=== PATIENT | male | born 1970 | race Caucasian/White ===

== ENCOUNTER → 2017-12-12 15:26 | Outpatient (CLI) | payer MEDICAID, SELFPAY ==
--- NOTE | 2017-12-12 15:40 | RAD_ITS ---
STUDY: X-RAY - LUMBAR SPINE REASON FOR EXAM: Male, 47 years old. Low back pain TECHNIQUE: 5 view(s) of the lumbar spine were obtained. COMPARISON: None FINDINGS: Normal lumbar lordosis. There is no substantial scoliosis. There is a normal alignment of the vertebrae. Normal vertebral bodies and endplates. Mild disc narrowing and spondylitic endplate changes at L4-5. Minimal disc narrowing at L3-4 and L5-S1. Normal posterior elements. The soft tissue structures are unremarkable. RAD/L/S Spine Min 4 Views IMPRESSION: Straightening of the lumbar spine with otherwise normal alignment. Negative for fracture, osteolytic or blastic bone lesion. Minimal/mild degenerative disc findings at L3-4, L4-5 and L5-S1. Electronically Signed: Mirna York MD at 23:32 EST , Service support ,
== END ==
PROVIDERS: Visit Provider Chiropractor
DX: S33.5XXA Sprain of ligaments of lumbar spine, initial encounter (principal); X58.XXXA Exposure to other specified factors, initial encounter; M47.896 Other spondylosis, lumbar region; M48.07 Spinal stenosis, lumbosacral region
CPT/HCPCS: 72110

== ENCOUNTER 2018-04-23 10:02 | Emergency (ER) | payer MEDICAID, SELFPAY ==
--- NOTE | 2018-04-23 10:14 | CT_ITS ---
STUDY: CTA CHEST REASON FOR EXAM: Male, 47 years old. Chest pain. Patient has a thoracic aortic aneurysm. RADIATION DOSAGE (If Supplied By Facility): CTDIvol = ( 18.90 ) mGy, DLP = ( 623.04 ) mGycm TECHNIQUE: The examination was performed with the intravenous administration of 100 ml of Isovue 300 contrast material. Post-processing of the angiographic images was performed, with multiplanar reformation and 3D reconstruction. Individualized dose optimization techniques were used for this CT. COMPARISON: CT of the chest dated March 02, 2016. FINDINGS: Normal enhancement of the main pulmonary artery and right and left pulmonary arteries. Normal enhancement of the bilateral peripheral pulmonary arteries. There is no demonstrated pulmonary embolism. There is atherosclerotic tortuosity of the aortic arch and descending thoracic aorta. Maximum transverse dimension of ascending thoracic aorta measures 4.5 cm. There is no demonstrated aortic dissection. Normal heart and pericardium. There are visualized mediastinal lymph nodes, which are within normal size limits, and with normal morphology. There are bilateral hilar lymph nodes, which are normal in size and morphology. Normal visualized trachea and bronchi. The lungs are well expanded. There is bilateral basilar dependent atelectasis. Early airspace disease is possible at the lung bases. Normal pleura. Normal chest wall structures. Normal osseous structures. Small lucency is visible within the right lobe liver. This may represent a small cyst. CT/CTA Chest W/WO Contrast IMPRESSION: 1. No CTA demonstrated pulmonary embolism or arterial dissection. 2. Prominent posterior dependent atelectasis, greater than expected. Early airspace disease or pneumonia cannot be excluded. Electronically Signed: Tonia Carmen MD at 11:31 EDT , Service support ,
[2018-04-23 10:15] VITALS: BP 123/77; PULSE 108; RESP 18; TEMP 36.5; O2SAT 98; BMI 28.8
--- NOTE | 2018-04-23 10:15 | EKG12_ITS ---
Test Reason : CP Blood Pressure : / mmHG Vent. Rate : 106 BPM Atrial Rate : 106 BPM P-R Int : 134 ms QRS Dur : 086 ms QT Int : 336 ms P-R-T Axes : 045 057 059 degrees QTc Int : 446 ms Sinus tachycardia Otherwise normal ECG Confirmed by CHARAN WAITE, CHRIS ([id number]), news videotape editor DARIELA SHARMA ([id number]) on 04/28/2018 3:39:31 PM Referred By: KITTY Confirmed By:CHRIS FARRAR MD
[2018-04-23 10:22] VITALS: BP 126/81; PULSE 102; RESP 17; O2SAT 98
[2018-04-23] MEDS: Ondansetron 4 MG/2 ML Vial IV (10:29)
[2018-04-23] MEDS: Aspirin 81 MG TAB.CHEW 324 MG PO (10:29)
[2018-04-23] MEDS: Morphine 4 MG/ML Syringe IV (10:30)
[2018-04-23 10:32] LABS: Absolute Lymphocyte Count 2.15 X10^3/ul (0.83-4.51); Absolute Neutrophil Count 7.7 X10^3/uL (2.0-7.7); Basophil# 0.03 X10^3/uL; Basophil% 0.3 % (0-1); Eosinophil# 0.14 X10^3/uL; Eosinophils% 1.3 % (0-5); Hematocrit 47.4 % (40-54); Hemoglobin 16.2 g/dl (13.0-16.5); Lymphocyte # 2.15 X10^3/ul (4.0); Mean Corp Hgb Conc 34.2 g/gl (32-36); Mean Corpuscular Hgb 30.6 pg (27.0-32.0); Mean Corpuscular Volume 89.6 fL (80-94); Mean Platelet Vol. 10.8 fl (6.2-12.0); Monocyte# 0.68 X10^3/uL; Monocyte% 6.3 % (0-10); Neutrophil % 71.5 % (47-70); Platelet Count 224 K/mm3 (150-450); RBC Distribution Width CV 13.2 % (11.6-14.6); RBC Distribution Width SD 43.7 fl (35.1-43.9); Red Blood Count 5.29 M/mm3 (4.6-6.2); White Blood Count 10.8 K/mm3 (4.4-11.0)
[2018-04-23 10:35] LABS: POSITIVE COUNT NO; POSITIVE DIFFERENTIAL NO; POSITIVE MORPHOLOGY NO
[2018-04-23 10:49] LABS: Anion Gap 10 (5-15); BUN 16 mg/dL (7-18); BUN/Creat Ratio 15.2 RATIO (10-20); Calcium,Total 8.7 mg/dL (8.5-10.1); Chloride 108 mmol/L (98-107); Creatinine, Serum 1.05 mg/dL (0.70-1.30); EST Glomerular Filtration Rate 81 mL/min (>60); Est Glom Filt Rate - Afr Amer 98 mL/min (>60); Estimated Creatinine Clearance 85.05 ml/min; Glucose 127 mg/dL (74-106); Potassium 3.4 mmol/L (3.5-5.1); Sodium Level 145 mmol/L (136-145)
[2018-04-23 12:14] VITALS: BP 113/84; PULSE 89; RESP 20
--- NOTE | 2018-04-23 12:21 | ED.DCSUM_ITS ---
- ER Visit Summary Date of Service: 04/23/18 Chief Complaint: Chest pain History of Present Illness: The patient is a 47 M presenting for evaluation secondary chest pain. Patient reports that about 7:00 this morning he had a relatively sudden onset of chest pain. He reports that it is a intermittent heaviness that is in the left side of his chest. It radiates a little bit to his back and was associated with some lightheadedness. No exacerbating relieving factors were associated with this. Patient denies any diaphoresis shortness of breath or palpitations. Patient has a underlying history of tobacco use and a known thoracic aneurysm at 4.5 cm. He has never had a stress test. He does not take any other medications. Review of systems otherwise negative. Physical Examination: Vital signs are within normal limits, patient is afebrile. General: Patient is well-nourished well-developed and in no acute distress. Head: Normocephalic, atraumatic Eyes: Pupils equal round and reactive bilaterally, extra occular motion intact bialterally ENT: Moist mucous membranes Neck: Supple, no lymphadenopathy, no JVD, no meningismus CVS: Heart regular rate and rhythm, no murmurs, rubs or gallops, radial pulses 2 + bilaterally Resp: Respirations nondistressed, lung sounds clear bilaterally Abdomen: Soft, nontender, nondistended, no palpable masses, normal bowel sounds Back: Nontender Extremities: Nontender, atraumatic, active full range of motion, no peripheral edema Skin: warm, contact dermatitis of the arms bilaterally, no petechia Neuro: Alert and oriented x 4, CN 2-12 intact, no lateralizing neurological defecits Psyc: Normal affect Test Results: CBC chemistry troponin are unremarkable. CT angiogram of the chest shows no evidence of dissection or PE and shows stable thoracic aneurysm. EKG demonstrates sinus rhythm of [address] segments normal T waves Emergency Department Course and Treatment: Patient presented for evaluation secondary chest pain. He was evaluated with the above workup that was found to be negative. Patient's SUKUMAR score 0 his heart score is 1. I do not believe that he requires further workup or admission at this time. Patient does have contact dermatitis. This will be treated with a prednisone taper. Patient will be given a primary care physician from the referral list. Disposition: Discharge Impression: 1. Chest pain 2. Contact dermatitis This note was generated with Dragon dictation software. It may contain incorrect words, spelling, and punctuation that were not noted in review of the chart prior to signing ED Disposition - Plan for ED Patient: Disposition: Home or Assisted Living Chief Complaint: Chest Pain Diagnosis: Chest pain, Contact dermatitis Instructions: ED Chest Pain NonCardiac, ED Dermatitis Non Specific Rash Prescriptions: Prednisone 10 mg PO UD #33 tab Referrals: Narciso Boo MD [STAFF PHYSICIAN] -
[2018-04-23 12:26] VITALS: BP 121/93; PULSE 102; RESP 16; O2SAT 98
== END 2018-04-23 12:27 | disposition home or self-care (01) ==
PROVIDERS: Emergency Provider Emergency Medicine
DX: R07.9 Chest pain, unspecified (principal); L25.9 Unspecified contact dermatitis, unspecified cause; Z72.0 Tobacco use
CPT/HCPCS: 71275; 80048; 84484; 85025; 93005; 96374; 96375; 99285; J7050; Q9967; A4216; J2405

== ENCOUNTER 2018-12-04 20:32 | Emergency (ER) | payer MEDICAID, SELFPAY ==
[2018-12-04 20:32] VITALS: PULSE 98; RESP 18; TEMP 37.1; BMI 26.9
--- NOTE | 2018-12-04 20:47 | EKG12_ITS ---
Test Reason : CP Blood Pressure : / mmHG Vent. Rate : 092 BPM Atrial Rate : 092 BPM P-R Int : 128 ms QRS Dur : 084 ms QT Int : 348 ms P-R-T Axes : 034 033 035 degrees QTc Int : 430 ms Normal sinus rhythm Possible Left atrial enlargement Borderline ECG Confirmed by CHARAN WAITE, CHRIS ([id number]), desk editor DARIELA SHARMA ([id number]) on 12/09/2018 10:55:32 AM Referred By: LUIS Confirmed By:CHRIS FARRAR MD
--- NOTE | 2018-12-04 20:54 | ED.DCSUM_ITS ---
- ER Visit Summary Date of Service: 12/04/18 Chief Complaint: Chest pain History of Present Illness: The patient is a 48 M who presents with chest pain that began approximately 5 hours prior to arrival. Patient states he woke up and was late for work when he noticed the chest pain. Patient describes the p ain as sharp. Patient states nothing makes it better or worse. Patient states the pain is over the left side of his chest and radiates to his left axilla and left scapula. Patient admits to some palpitations and lightheadedness. Patient denies any nausea or vomiting. Patient denies any diaphoresis. Patient denies any shortness of breath. Patient has a family history of a father who had hue nary artery disease in his 40s. Patient is a smoker. Patient denies any PE risk factors. Physical Examination: Vital signs are stable. Patient is afebrile. Patient is in no acute distress. Oral mucosa is pink and moist. Neck is supple. Trachea is midline. There is no JVD noted. Heart was regular rate and rhythm. Lungs are clear and equal bilateral. Abdomen is soft. Bowel sounds are normal. There is no tenderness. There is no guarding noted. Skin is warm dry. Cranial nerves II through XII are intact. There are no focal motor or sensory deficits noted. The remaining physical exam is within normal limits. Test Results: EKG showed normal sinus rhythm with a rate of 92. There are no acute ST or T wave changes. Portable chest x-ray does not show any acute cardiopulmonary process. CBC and basic metabolic profile were normal. Troponin was normal. Emergency Department Course and Treatment: Patient was given aspirin and sublingual nitroglycerin here. Patient felt better on reevaluation. Patient has a HEART score of 3 and a SUKUMAR score of 1. Patient was advised that this is low risk for acute cardiac event. Patient was instructed to follow-up with his primary care physician in 5-7 days. Patient was instructed to return if worse in any way. Patient understood and was agreeable with the plan. All questions were answered. Disposition: Discharge home Impression: Chest pain This note was generated with [employer] dictation software. It may contain incorrect words, spelling, and punctuation that were not noted in review of the chart prior to signing Capacity - Capacity Assessment Tool Can the patient make a choice & communicate that choice?: Yes Can the patient understand benefits, risks and alternatives?: Yes Can the patient make a logical, rational choice?: Yes Is the choice the patient makes consistent w/ their values?: Yes Is there an impending, emergent risk to the patient?: No ED Disposition - Plan for ED Patient: Disposition: Home or Assisted Living Diagnosis: Chest pain of uncertain etiology Instructions: ED Chest Pain Atypical Unkn Cause Referrals: Care Physician,No Primary [Primary Care Provider] - Chetan Lainez III, MD [STAFF PHYSICIAN] -
--- NOTE | 2018-12-04 20:55 | RAD_ITS ---
STUDY: X-RAY CHEST REASON FOR EXAM: Male, 48 years old. Chest pain TECHNIQUE: 1 view COMPARISON: Prior chest radiograph of July 10, 2016. FINDINGS: 1 small transverse scar above the left costophrenic angle present on prior exam. Negative for new consolidation, focal atelectasis or pleural effusion. There is no demonstrated pleural abnormality. Normal size heart. Normal mediastinum and rosalba. Normal visualized pulmonary arteries. Normal visualized aortic arch and descending thoracic aorta. Normal visualized thoracic spine. Normal visualized ribs, clavicles, and shoulders. There is no demonstrated abnormality of the visualized soft tissue structures of the upper abdomen. RAD/Chest 1 View (Portable) IMPRESSION: No acute cardiopulmonary findings or changes. Electronically Signed: Mirna York MD at 21:13 EST , Service support ,
[2018-12-04] MEDS: Aspirin 81 MG TAB.CHEW 324 MG PO (20:56)
[2018-12-04 20:57] VITALS: BP 120/85; PULSE 88
[2018-12-04 21:02] VITALS: BP 119/90; PULSE 95
[2018-12-04 21:07] VITALS: BP 112/77; PULSE 98
[2018-12-04 21:12] LABS: Absolute Lymphocyte Count 1.94 X10^3/ul (0.83-4.51); Absolute Neutrophil Count 5.9 X10^3/uL (2.0-7.7); Basophil# 0.02 X10^3/uL; Basophil% 0.2 % (0-1); Eosinophils% 2.3 % (0-5); Hematocrit 48.3 % (40-54); Hemoglobin 15.5 g/dl (13.0-16.5); Lymphocyte # 1.94 X10^3/ul (4.0); Lymphocyte % 22.6 % (19-41); Mean Corp Hgb Conc 32.1 g/gl (32-36); Mean Corpuscular Hgb 29.6 pg (27.0-32.0); Mean Corpuscular Volume 92.2 fL (80-94); Mean Platelet Vol. 10.4 fl (6.2-12.0); Monocyte# 0.45 X10^3/uL; Monocyte% 5.2 % (0-10); Neutrophil # 5.92 X10^3/uL (2.7-7.7); Neutrophil % 69.1 % (47-70); Platelet Count 237 K/mm3 (150-450); RBC Distribution Width CV 13.7 % (11.6-14.6); RBC Distribution Width SD 46.3 fl (35.1-43.9); Red Blood Count 5.24 M/mm3 (4.6-6.2); White Blood Count 8.6 K/mm3 (4.4-11.0)
[2018-12-04 21:16] LABS: Anion Gap 7 (5-15); BUN 17 mg/dL (7-18); BUN/Creat Ratio 17.4 RATIO (10-20); Chloride 110 mmol/L (98-107); Creatinine, Serum 0.98 mg/dL (0.70-1.30); EST Glomerular Filtration Rate 88 mL/min (>60); Est Glom Filt Rate - Afr Amer 106 mL/min (>60); Glucose 117 mg/dL (74-106); POSITIVE COUNT NO; POSITIVE DIFFERENTIAL NO; POSITIVE MORPHOLOGY NO; Potassium 4.2 mmol/L (3.5-5.1); Sodium Level 143 mmol/L (136-145)
[2018-12-04 21:47] VITALS: BP 108/69; PULSE 77; RESP 15; O2SAT 98
[2018-12-04 22:35] VITALS: BP 97/72; PULSE 90; RESP 16; O2SAT 96
== END 2018-12-04 22:50 | disposition home or self-care (01) ==
PROVIDERS: Emergency Provider Emergency Medicine
DX: R07.9 Chest pain, unspecified (principal); F17.200 Nicotine dependence, unspecified, uncomplicated; Z82.49 Family history of ischemic heart disease and other diseases of the circulatory system
CPT/HCPCS: 71045; 80048; 84484; 85025; 93005; 99285; A4216

== ENCOUNTER 2019-04-13 01:26 | Emergency (ER) | payer MEDICAID, SELFPAY ==
[2019-04-13 01:27] VITALS: BP 130/108; PULSE 87; RESP 18; TEMP 36.8; O2SAT 97; BMI 28.8
[2019-04-13 01:31] VITALS: RESP 18
--- NOTE | 2019-04-13 02:12 | RAD_ITS ---
HISTORY: Chest Pain EXAMINATION/TECHNIQUE: XR Chest 1 View: Portable COMPARISON: Chest x-ray 12/04/2018 and CTA chest 04/23/2018 FINDINGS: EKG leads in place. No significant change. Shallow inspiration. Lingular segment minor linear scarring. No acute infiltrate. No vascular congestion or pleural effusion. No pneumothorax. RAD/Chest 1 View (Portable) IMPRESSION: 1. No acute cardiopulmonary disease. No significant interval change. 2. Left basilar minor scarring. at 0401 Reported and signed by: Derrick Turcios MD Electronically Signed: Derrick Turcios, at 4:00 EDT Tel , Service support ,
--- NOTE | 2019-04-13 02:12 | EKG12_ITS ---
Test Reason : CP Blood Pressure : / mmHG Vent. Rate : 088 BPM Atrial Rate : 088 BPM P-R Int : 132 ms QRS Dur : 078 ms QT Int : 354 ms P-R-T Axes : 027 036 037 degrees QTc Int : 428 ms Normal sinus rhythm Normal ECG Confirmed by CHARAN WAITE, CHRIS ([id number]), online editor MAYURI JEFFERSON ([id number]) on 04/14/2019 7:29:12 AM Referred By: LUIS Confirmed By:CHRIS FARRAR MD
[2019-04-13 02:18] VITALS: O2SAT 94
[2019-04-13] MEDS: Aspirin 81 MG TAB.CHEW 324 MG PO (02:20)
[2019-04-13] MEDS: Nitroglycerin SL (ED/IMG/CATH) 0.4 MG TABLET SUBLINGUAL (02:22)
[2019-04-13 02:29] LABS: Absolute Lymphocyte Count 2.18 X10^3/ul (0.83-4.51); Absolute Neutrophil Count 4.6 X10^3/uL (2.0-7.7); Basophil# 0.03 X10^3/uL; Basophil% 0.4 % (0-1); Eosinophil# 0.17 X10^3/uL; Eosinophils% 2.2 % (0-5); Hematocrit 47.4 % (40-54); Hemoglobin 15.7 g/dl (13.0-16.5); Lymphocyte # 2.18 X10^3/ul (4.0); Lymphocyte % 28.5 % (19-41); Mean Corp Hgb Conc 33.1 g/gl (32-36); Mean Corpuscular Hgb 29.7 pg (27.0-32.0); Mean Corpuscular Volume 89.8 fL (80-94); Mean Platelet Vol. 11.3 fl (6.2-12.0); Monocyte% 7.9 % (0-10); Neutrophil # 4.62 X10^3/uL (2.7-7.7); Neutrophil % 60.5 % (47-70); Platelet Count 202 K/mm3 (150-450); RBC Distribution Width CV 13.2 % (11.6-14.6); RBC Distribution Width SD 43.2 fl (35.1-43.9); Red Blood Count 5.28 M/mm3 (4.6-6.2); White Blood Count 7.6 K/mm3 (4.4-11.0)
[2019-04-13 02:30] LABS: POSITIVE COUNT NO; POSITIVE DIFFERENTIAL NO; POSITIVE MORPHOLOGY NO
[2019-04-13 02:41] LABS: Anion Gap 6 (5-15); BUN 23 mg/dL (7-18); BUN/Creat Ratio 21.9 RATIO (10-20); Chloride 108 mmol/L (98-107); Creatinine, Serum 1.05 mg/dL (0.70-1.30); EST Glomerular Filtration Rate 80 mL/min (>60); Est Glom Filt Rate - Afr Amer 97 mL/min (>60); Estimated Creatinine Clearance 103.95 ml/min; Glucose 121 mg/dL (74-106); Potassium 3.8 mmol/L (3.5-5.1); Sodium Level 142 mmol/L (136-145)
[2019-04-13 03:02] VITALS: BP 107/70; PULSE 97; RESP 16; O2SAT 96
[2019-04-13 03:53] VITALS: BP 118/84; PULSE 95; RESP 16; O2SAT 95
--- NOTE | 2019-04-13 04:14 | ED.VISSUMM ---
- ER Visit Summary Date of Service: 04/13/19 Chief Complaint: Chest pain History of Present Illness: The patient is a 48 M who presents with chest pain that began today. Patient describes the pain as sharp. Patient states the pain is over the left upper chest and radiates to the left axilla. Patient states nothing makes the pain better or worse. Patient admits to some mild shortness of breath and palpitations with pain. Patient also admits to recent cough. Patient denies any nausea or vomiting. Patient denies any diaphoresis. Patient denies any heartburn or reflux. Patient denies any lightheadedness or dizziness. Physical Examination: Vital signs are stable. Patient is afebrile. Patient is in no acute distress. Oral mucosa is pink and moist. Neck is supple. Trachea is midline. There is no JVD noted. Heart was regular rate and rhythm. Lungs are clear and equal bilateral. Abdomen is soft. Bowel sounds are normal. There is no tenderness. There is no guarding noted. Skin is warm dry. Cranial nerves II through XII are intact. There are no focal motor or sensory deficits noted. The remaining physical exam is within normal limits. Test Results: EKG showed normal sinus rhythm with a rate of 88. There are no acute ST or T wave changes. There are no prior EKGs available for comparison. CBC, basic metabolic profile, troponin were obtained were all normal. PA and lateral chest x-ray was obtained. Radiologist interpretation is pending. Emergency Department Course and Treatment: Patient did not want to wait for his x-ray results. Patient left prior to receiving his results. Patient signed out AGAINST MEDICAL ADVICE. Patient was advised that his chest pain may be cardiac or pulmonary etiology. Patient does not want to wait for his x-ray results. Patient understood and will still sign out AGAINST MEDICAL ADVICE. Disposition: Discharge AGAINST MEDICAL ADVICE Impression: Chest pain of uncertain etiology This note was generated with [employer] dictation software. It may contain incorrect words, spelling, and punctuation that were not noted in review of the chart prior to signing ED Disposition - Plan for ED Patient: Disposition: Against Medical Advice Diagnosis: Chest pain of uncertain etiology Referrals: Care Physician,No Primary [Primary Care Provider] -
== END 2019-04-13 03:54 | disposition left against medical advice (07) ==
PROVIDERS: Emergency Provider Emergency Medicine
DX: R07.9 Chest pain, unspecified (principal); Z53.21 Procedure and treatment not carried out due to patient leaving prior to being seen by health care provider; Z72.0 Tobacco use
CPT/HCPCS: 71045; 80048; 84484; 85025; 93005; 99285; A4216

== ENCOUNTER 2019-05-27 09:11 | Emergency (ER) | payer MEDICAID, SELFPAY ==
[2019-05-27 09:11] VITALS: BP 131/94; PULSE 109; RESP 18; TEMP 36.6; O2SAT 96; BMI 27.5
--- NOTE | 2019-05-27 09:23 | ED.DCSUM_ITS ---
History of Present Illness Chief Complaint: Dental Informant: Patient Onset: Days Context: Gradual Onset Current Severity: Moderate Maximum Severity: Moderate Narrative: Patient presents with right upper dental pain for the past 4 days. He was seen at the [facility] and given a prescription for clindamycin, 300 mg 3 times daily x7 days. Patient states he continues to have worsening pain. He feels that his left maxilla is swelling more. He does not have a dentist and has not called anyone to be seen. He has not had fever. He has had no difficulty with swallowing. Past Medical History - Allergies and Home Meds Allergies/Adverse Reactions: Allergies Penicillins Allergy (Verified 04/13/19 01:34) Shortness of breath Primary Care Physician: Care Physician,No Primary [Primary Care Provider] - Prior records reviewed: Yes Past Medical History: - - Reviewed Smoking Status: Current every day smoker Review of Systems General: Denies: Chills, Fever ENT: Reports: - - Dental pain and right facial pain. Denies: Bilateral ear pain Cardiovascular: Denies: Chest pain Respiratory: Denies: Dyspnea Gastrointestinal: Denies: Abdominal pain, Nausea, Vomiting, Diarrhea Genitourinary: Denies: Dysuria Neurological: Denies: Headache Hematologic: Denies: Easy bruising Allergy: Denies: Uticaria Physical Exam Vital Signs/Narrative: Vital Signs Temp Pulse Resp BP Pulse Ox 05/27/19 09:11 98 F 109 H 18 131/94 H 96 Inital Vital Signs reviewed: Yes General: Well nourished, Well developed Eyes: Perrl ENT: Moist mucous membranes, TM's clear, - - Right maxillary first premolar has a cavity near the gumline. There is minimal surrounding gum edema. He does have right maxillary edema but no erythema. There is no sub-mandibular edema. He is lying with head of bed elevated approximately 30 degrees and is tolerating secretions well and has a strong voice. Neck: Supple, Nontender Cardiovascular: Regular rate, Regular rhythm, No murmurs Respiratory: No distress, CTA bilaterally Abdomen: Soft, Nontender Skin: Normal color Neurological: Alert, Oriented x3 Psychological: - - Anxious Diagnostic/Tx/Re-eval - Medical Decision Making Patient was on clindamycin but unfortunately was not quite on the correct dose. He states that in the past he has done very well with erythromycin. He will be written for this in place of the clindamycin. He asked us to get rid of his clindamycin pills and they were destroyed. He will also be given a short course of [facility] for pain. Most importantly he is given a dental referral list and advised he must follow-up with a dentist. ED Disposition - Plan for ED Patient: Disposition: Home or Assisted Living Diagnosis: Odontalgia Instructions: Dental Abscess Prescriptions: Erythromycin Base [Erythromycin] 500 mg PO Q8H #10 days Hydrocodone Bitart/Apap 5-325 [[facility] 5MG-325MG] 1 tablet PO Q6H PRN PRN 3 Days #10 tablet PRN Reason: Pain Additional Instructions: Dental list provided.
--- NOTE | 2019-05-27 09:24 | ED.RN ---
PT WANTS THE CLINDAMYCIN DISPOSED OFF AND A NEW ANTIBIOTIC. PT GAVE IT TO DR JACOBSON AND [employer] PLACED IN THE RX DESTROYER SOLUTION.
== END 2019-05-27 09:50 | disposition home or self-care (01) ==
LOC: ED 09:46
PROVIDERS: Emergency Provider Emergency Medicine; Family Provider Family Medicine; PCP Family Medicine
DX: K08.89 Other specified disorders of teeth and supporting structures (principal); K02.9 Dental caries, unspecified; F17.200 Nicotine dependence, unspecified, uncomplicated
CPT/HCPCS: 99282

== ENCOUNTER 2019-11-25 10:13 | Emergency (ER) | payer MEDICAID, SELFPAY ==
[2019-11-25 10:15] VITALS: BP 131/89; PULSE 107; RESP 18; TEMP 36.8; O2SAT 100; BMI 28.0
--- NOTE | 2019-11-25 10:58 | ED.VISSUMM ---
- ER Visit Summary Date of Service: 11/25/19 Chief Complaint: Rash History of Present Illness: The patient is a 49 M past medical history of thoracic aneurysm. And a rash for over a year. He is seen a plant operator control room operator for this who prescribed him a cream and oral steroids which worked well. Currently he is out of his steroids. He also wrote a prescription for injections but his insurance denied that he is going through the appeals process. Physical Examination: Well-appearing middle-aged male. Emotionally stressed. Vital signs are stable afebrile. H EENT exam unremarkable. Neck nontender. Lungs clear to auscultation bilaterally. Heart regular rhythm no murmur rate about 100. Abdomen soft nontender. Extremities moves all 4. Neurovascular intact. Neurologically is awake alert no focal motor deficits. Skin is a red raised rash that blanches. It appears to be allergic reaction. No sloughing of skin. No pustules or vesicles. Test Results: None Emergency Department Course and Treatment: Patient be given dose of prednisone here and placed on a prescription. Follow-up with his plant operator control room operator. Treatment Plan: As in 40 mg a day for 10 days. Follow-up with his plant operator control room operator. Stop smoking and using cocaine. Disposition: dc Impression: Acute rash (allergic reaction) This note was generated with [employer] dictation software. It may contain incorrect words, spelling, and punctuation that were not noted in review of the chart prior to signing ED Disposition - Plan for ED Patient: Referrals: Rey Davies MD [Primary Care Provider] -
--- NOTE | 2019-11-25 11:01 | ED.DEP ---
ED Disposition - Plan for ED Patient: Disposition: Home or Assisted Living Instructions: ALLERGIC REACTION, Other (General) Prescriptions: Prednisone [Deltasone] 40 mg PO DAILY 10 Days tab Prescription Printed Referrals: Rey Davies MD [Primary Care Provider] - As Needed Ivone Lazaro [NON-STAFF] - As soon as possible
[2019-11-25] MEDS: predniSONE 20 MG Tablet 60 MG PO (11:24)
[2019-11-25 11:25] VITALS: PULSE 93; RESP 17; O2SAT 100
== END 2019-11-25 11:26 | disposition home or self-care (01) ==
LOC: ED 11:02
PROVIDERS: Emergency Provider Emergency Medicine; PCP Family Medicine
DX: R21 Rash and other nonspecific skin eruption (principal); T78.40XA Allergy, unspecified, initial encounter; X58.XXXA Exposure to other specified factors, initial encounter; Z72.0 Tobacco use
CPT/HCPCS: 99283

== ENCOUNTER 2019-11-29 14:33 | Emergency (ER) | payer MEDICAID, SELFPAY ==
[2019-11-29 14:33] VITALS: BP 117/75; PULSE 96; RESP 18; TEMP 36.6; O2SAT 98; BMI 28.0
--- NOTE | 2019-11-29 14:47 | ED.DCSUM_ITS ---
History of Present Illness Chief Complaint: Rash Detail of Chief Complaint: Haris Limon may have shingles Informant: Patient Onset: Days - Onset of different rash 3 days ago rash started left lower back radiating over the lateral to lateral anterior left thigh. Context: Sudden Onset Timing: Continuous Quality: Erythematous rash with crusting and reported blisters Location: Previously documented Current Severity: Mild Maximum Severity: Mild Worsened by: Itching Relieved by: Nothing Associated Symptoms: Reports pain as he is rubbing the rash. Narrative: Patient is a 49-year-old male who sees a market research analyst for his rash. He denies fever or chills. He states the rash she is seeing a market research analyst for improved after he was prescribed prednisone. He is now concerned about the new rash that is on his buttocks, low back and left thigh. He was unaware that the rash crosses midline. He also complains of pain shooting into his buttocks. He denies change in size, consistency or frequency of bowel movements. He denies symptoms. He is concerned he has shingles. Prior similar symptoms: No Recent Illness/Hospitalization: Yes - Past Medical History (1) Psoriasis Status: Acute Past Medical History - Allergies and Home Meds Allergies/Adverse Reactions: Allergies Penicillins Allergy (Verified 11/29/19 14:35) Shortness of breath Primary Care Physician: Rey Davies MD [Primary Care Provider] - Prior records reviewed: Yes Surgical History: noncontributory Lives: Alone Smoking Status: Current every day smoker Alcohol: Rare Drugs: None Review of Systems General: Denies: Chills, Fever, Malaise, Subjective, Sweats, Weight loss, - Eyes: Reports: - - Complaint of photophobia. Denies: Visual changes - bilaterally, Blurred Vision - bilaterally ENT: Denies: Rhinorrhea, Sore throat Gastrointestinal: Denies: Abdominal pain, Nausea, Vomiting, Diarrhea, Melena, Hematochezia Genitourinary: Denies: Dysuria, Hematuria, Frequency Musculoskeletal: Denies: Back pain, Swelling, Extremity Pain Skin: Reports: Rash, Wounds. Denies: Abscess, Abrasions Neurological: Denies: Weakness, Parasthesia, Numbness Allergy: Denies: Uticaria, Swelling of the mouth, Swelling of the tongue Physical Exam Vital Signs/Narrative: Vital Signs Temp Pulse Resp BP Pulse Ox 11/29/19 14:33 97.8 F 96 18 117/75 98 Inital Vital Signs reviewed: Yes General: Well nourished, Well developed, No Acute Distress Head: Normocephalic, Atraumatic Eyes: Perrl, EOMI Cardiovascular: Regular rate Respiratory: No distress Rectal: Deferred Back: Nontender. Negative for: Normal Inspection, CVA tenderness, Spinal tenderness Extremities: No edema. Negative for: Nontender Skin: Normal color, Rash - Patient has evidence of eczema as well as psoriasis. He also has a rash on the anterior/lateral left thigh as well as buttocks and left lower back which crosses midline. The rash is erythematous with a scaly hypertrophic appearing center. No blisters are noted. He has no hyperesthesia. As previously documented he reports pain as he is rubbing the rash. Neurological: Alert, Oriented x3, Cranial nerves II-XII grossly intact, Normal Strength, Normal Sensation Psychological: - - Exaggerated Diagnostic/Tx/Re-eval - Medical Decision Making She presents with rash that he reports is pruritic and painful. Patient does have a rash. Concerned this represents psoriasis. Since he is under the care of the market research analyst and there is no acute life-threatening concern will discharge to home I was informed by the charge nurse the patient left because he was not going to wait for a cream or ointment for his rash. ED Disposition - Plan for ED Patient: Disposition: Home or Assisted Living Diagnosis: Scaly erythematous rash Referrals: Rey Davies MD [Primary Care Provider] -
--- NOTE | 2019-11-29 14:52 | ED.RN ---
PT CAME OUT TO NURSES STATION AND STATED I'M GOING TO LEAVE, I FELL FINE PT LEFT WITHOUT BEING SEEN.
== END 2019-11-29 14:55 | disposition home or self-care (01) ==
PROVIDERS: Emergency Provider Emergency Medicine; PCP Family Medicine
DX: R21 Rash and other nonspecific skin eruption (principal); F17.200 Nicotine dependence, unspecified, uncomplicated

== ENCOUNTER 2022-01-17 18:03 | Emergency (ER) | payer MEDICAID, SELFPAY ==
[2022-01-17 18:04] VITALS: BP 141/120; PULSE 119; RESP 18; TEMP 36.1; O2SAT 95; BMI 28.5
--- NOTE | 2022-01-17 18:16 | ED.VIS.DENTA ---
HPI History of Present Illness Chief Complaint: Dental Detail of Chief Complaint: Dental pain x3 days Onset/Context/Timing Current Severity: Severe Narrative Narrative: Patient presents to the ER with complaint of left lower dental pain that started 3 days ago. Patient states that his dentist called him in a prescription for Keflex yesterday but feels like he is getting worse. He has pain that kind of radiates under his jaw and to the back of his throat. He complains of a headache. He denies fever but has had some chills. Patient otherwise has no medical history. Prior similar symptoms: No PFSH PFSH Medical History (Updated 01/17/22 @ 18:[address] Yannick Roca, DO) Bilateral groin pain Dental abscess Excessive cerumen in ear canal Psoriasis Home Medications clindamycin HCl [Cleocin HCl] 300 mg PO Q6H #40 capsule 01/17/22 [Rx Last Taken Unknown] hydrocodone-acetaminophen 1 tab PO Q4H PRN PRN 2 Days #10 tablet 01/17/22 [Rx Last Taken Unknown] Allergy/AdvReac Type Severity Reaction Status Date / Time Penicillins Allergy Shortness Verified 01/17/22 18:03 of breath Family History Mother Colon cancer Surgical History history left inguinal herniorrhaphy Social History (Updated 03/29/20 @ 09:[address] Dariusz Godwin MD) Smoking Status: Current every day smoker tobacco type: cigarettes alcohol intake: never substance use type: does not use ROS ROS ED Constitutional Constitutional ED: Reports systems reviewed and no addt'l complaints, except as documented; Denies body ache(s), change in weight or chills Eyes Eyes: Denies acute decrease in peripheral vision, change in vision, double vision or loss of vision ENT ENT ED: Reports none, sore throat and other Details: Dental pain ; Denies ear pain, lip swelling, loss taste/smell, neck pain or otalgia Cardiovascular Cardiovascular: Reports none; Denies abdominal pain, chest pain with activity, leg edema, lightheadedness, palpitations, rapid heart rate or syncope Respiratory/Chest Respiratory/Chest: Reports none; Denies change in mental status, dry cough, dyspnea, hemoptysis, shortness of breath at rest or shortness of breath with exertion Gastrointestinal Gastrointestinal: Reports none; Denies abdominal pain, change in stool character, diarrhea, hematemesis, hematochezia, melena, rectal bleeding or vomiting Genitourinary Genitourinary ED: Reports none; Denies abdominal discomfort, anuria, dysuria, genital pain or polyuria Musculoskeletal Musculoskeletal: Reports none; Denies arthralgias, back pain, difficulty walking, extremity pain, muscle weakness or myalgias Integumentary Reports none; Denies abscess or rash Neurologic Neurologic: Reports none; Denies abnormal gait, confusion, focal weakness, frequent falls, headache(s), loss of vision, numbness, paresthesias, radicular pain, vertigo or weakness Psychiatric Psychiatric: Reports systems reviewed and no addt'l complaints, except as documented and none; Denies behavioral changes, confusion, difficulty concentrating, hallucinations, suicidal ideation, tactile hallucinations or visual hallucinations Endocrine Endocrinology: Denies none, cold intolerance, excessive sweating, fatigue or heat intolerance Hematologic/Lymphatic Hematologic/Lymphatic: Reports none; Denies anemia, easy bleeding or easy bruising Allergic/Immunologic Allergic/Immunologic ED: Denies as per HPI, none, lip swelling, mouth swelling, throat swelling, tongue swelling or hives EXAM Physical Exam Const Vital Signs: 01/17/22 18:04 Temperature 97 F L Temperature Source Temporal Pulse Rate 119 H Respiratory Rate 18 Blood Pressure 141/120 H Blood Pressure Mean 127 Pulse Ox 95 Oxygen Delivery Method Room Air Positive well nourished and well developed General Appearance ED: well developed and NAD HEENT Reports TM's clear and moist mucous membranes HEENT Narrative: Dentition-patient has tenderness to palpation over left lower molar #19. No gingival erythema or abscess noted. No facial erythema or cellulitis. No significant adenopathy. Pharynx is nonerythematous. Uvula is midline. No trismus. normocephalic and atraumatic; Negative for trauma or tenderness Tympanic Membrane ED: Yes TM's clear Eyes PERRL and EOMs intact bilaterally General Eye ED: Negative for pale conjunctiva or scleral icterus Neck no lymphadenopathy, supple and no JVD General: Negative for tenderness Chest Wall inspection of chest normal and palpation of chest normal Chest: Negative for tenderness Resp normal respiratory effort and clear to auscultation bilaterally Effort and Inspection: Negative for respiratory distress or pain with movement Auscultation: Negative for rhonchi, wheezes or diminished lung sounds Cardio regular rate, regular rhythm, S1 normal heart sound, S2 normal heart sound and no murmurs Peripheral Pulses: pulses 2+ throughout GI normal to inspection, nondistended, normoactive bowel sounds, soft to palpation, non-tender, non-distended and no masses Back/Spine no CVA tenderness and no thoracic nor lumbar tenderness Extremity normal to inspection General Extremety ED: Negative for edema General Extremity: Negative for edema Neuro oriented x3, CN's II-XII intact bilaterally, no sensory deficits noted and gait normal Sensorium / Orientation: awake, alert, oriented to person, oriented to place and oriented to time Motor Exam: strength 5/5 throughout and strength abnormal Psych mental status grossly normal Skin no rashes or lesions noted and no wounds MDM MDM MDM Narrative Medical decision making narrative: Patient will be switched to clindamycin. He is given a few [place] for pain. He is advised to follow-up with his dentist within next 3 to 5 days. Discharge Plan Triage Chief Complaint: Dental ED Provider: Yannick Roca Dx/Rx/DC Orders Clinical Impression: Pain, dental Instructions: ED Dental Pain Prescriptions: New clindamycin HCl [Cleocin HCl] 300 MG capsule 300 mg PO Q6H Qty: 40 RF: 0 hydrocodone-acetaminophen [hydrocodone-acetaminophen] 1 TABLET tablet 1 tab PO Q4H PRN PRN (Reason: Pain) 2 Days Qty: 10 RF: 0 Primary Care Provider: Care Physician,No Primary Referrals: Care Physician,No Primary [Primary Care Provider] - Activity Restrictions/Additional Instructions: See your dentist at earliest possible time for repeat evaluation Disposition Disposition: Home, Self Care
[2022-01-17] MEDS: Clindamycin HCl 150 MG Capsule 300 MG PO (18:25)
== END 2022-01-17 18:28 | disposition home or self-care (01) ==
LOC: ED 18:25
PROVIDERS: Emergency Provider Emergency Medicine; Visit Provider Emergency Medicine
DX: K08.89 Other specified disorders of teeth and supporting structures (principal); F17.210 Nicotine dependence, cigarettes, uncomplicated
CPT/HCPCS: 99283

== ENCOUNTER 2025-06-26 08:42 | Emergency (ER) | payer SELFPAY ==
[2025-06-26] VITALS (7 sets, daily range): BP systolic 104–120; BP diastolic 78–84; PULSE 67–102; RESP 15–18; TEMP 36.6; O2SAT 98; BMI 28.2
--- NOTE | 2025-06-26 08:47 | RAD_ITS ---
EXAM: Three views of the tibia. CLINICAL HISTORY: Fall. COMPARISON: None. TECHNIQUE: 3 radiographic views of the right calf. FINDINGS: Intramedullary aman in the right tibia with healed mid tibial fracture. Healed fibular fracture. Knee and ankle articulations negative. RAD/Tibia & Fibula 2 Views IMPRESSION: Old healed fractures of the right calf. Reading Location: [id number]
[2025-06-26] MEDS: fentaNYL 100 MCG/2 ML Ampul 50 MCG IV (08:49)
--- NOTE | 2025-06-26 08:49 | EDS_ITS ---
HPI History of Present Illness Chief Complaint: Laceration Narrative Narrative: Patient is a 54-year-old male presenting to the emergency department for a right lower extremity injury. Patient states that about half an hour ago he was jumping up into the back of a trailer behind his truck when he hit his right edwards on a piece of metal. He does not know when his last tetanus vaccine was. Denies any other injuries. Denies numbness or weakness of the leg. PFSH PFSH Medical History Bilateral groin pain Psoriasis Excessive cerumen in ear canal Dental abscess Home Medications ?Medication ?Instructions ?Recorded ?Last Taken ?Type clindamycin HCl 150 mg capsule 450 mg (3 x 150 mg) PO Q8H 7 days 06/26/25 Unknown Rx (Cleocin HCl) #63 caps Allergy/AdvReac Type Severity Reaction Status Date / Time Penicillins Allergy Shortness Verified 01/17/22 18:03 of breath Family History Mother Colon cancer Surgical History history left inguinal herniorrhaphy Social History Smoking Status: Current every day smoker tobacco type: cigarettes alcohol intake: never substance use type: does not use ROS ROS ED ROS Narrative see HPI EXAM Physical Exam Narrative Exam Narrative: Vital signs: Reviewed General: Alert and orientedx3. No acute distress HEENT: Head is normocephalic and atraumatic, no lacerations, abrasions, cephalohematoma. Midface is stable and nontender to palpation. Pupils equal round and reactive. Nares are patent. Oropharynx and throat exams normal. Neck: Supple without lymphadenopathy nontender. No midline cervical spinal tenderness to palpation. left sided paraspinal cervical tenderness to palpation. Cardiovascular: Regular rate and rhythm, no murmurs. No rubs or gallops. Normal S1 and S2 Respiratory: Clear to auscultation bilaterally. No wheezes, rales, rhonchi Chest: Chest wall is atraumatic and nontender to palpation. No crepitus or ecchymosis. Abdominal: Soft and nontender. Normal bowel sounds. No guarding or rebound. Nonsurgical abdomen Extremities: V shaped laceration to the right anterior edwards. 6 cm by 6 cm. No active bleeding noted on exam. No FB noted. DP and PT pulses intact bilaterally. Sensation intact throughout in L4, L5, S1 dermatomes. Dorsiflexion and plantarflexion intact in right lower extremity. Left shoulder is mildly tender to palpation. No obvious deformity. Hips are stable and nontender to palpation. No midline thoracic or lumbar spinal tenderness palpation. No step-offs or def ormities. Extremities are otherwise atraumatic and nontender to palpation with normal range of motion. The rest of the physical exam is unremarkable Const Vital Signs: 06/26/25 08:43 06/26/25 09:15 06/26/25 09:30 Temperature 97.9 F Temperature Source Oral Pulse Rate 102 H Respiratory Rate 18 Blood Pressure 104/78 104/84 H 120/78 Blood Pressure Mean 86 92 90 Pulse Ox 98 Oxygen Delivery Method Room Air 06/26/25 10:00 06/26/25 10:30 06/26/25 10:31 Temperature 97.9 F Temperature Source Pulse Rate 72 75 75 Respiratory Rate 16 16 Blood Pressure 120/78 Blood Pressure Mean 92 Pulse Ox 98 98 Oxygen Delivery Method 06/26/25 11:00 Temperature Temperature Source Pulse Rate 67 Respiratory Rate 15 Blood Pressure Blood Pressure Mean Pulse Ox 98 Oxygen Delivery Method Room Air PROC Procedures Lacerations Edwards: Length: 4.72 in Depth: Sub Q Shape: Flap Laceration repair: Irrigated, Lidocaine with epi and Wound explored Irrigated (ml): 900 MDM MDM MDM Narrative Medical decision making narrative: Patient is a 54-year-old male presenting to the emergency department for a right lower extremity injury. Patient was seen and examined. Vitals are stable. Patient resting bed comfortably no acute distress. Patient did add after wound was being explored that he was having some left shoulder pain after the fall and might of hit his head. CT brain, cervical spine and left shoulder x-ray were obtained as well. CT brain with no acute intracranial process. CT cervical spine with no acute fracture or subluxation. There is a nonspecific sclerotic change in the clivus, I do not think this is clinically relevant however patient and were notified of these findings and encouraged follow-up with PCP to have this followed. Shoulder x-ray with no acute findings including no dislocation or fracture on my review. Negative read by radiology as well. CT cervical spine also showed a partially visualized prominent ascending aorta. This was found on prior imaging as well and and patient were notified of this as well. They state they are aware of this. They are asking for vascular surgeon referral given they did not like the one they went to before. This was provided. Patient given fentanyl for pain control. Tetanus updated. Xray ordered. X-ray shows an old healed fracture with no acute fracture or foreign body noted. Wound was copiously irrigated with about 1.5 L of saline. Lido 2% with epi used for local anesthetic of the wound. Neurovascularly intact. Initially thirteen 4.0 Ethilon sutures were placed. Upon discharge she went to stand up and began oozing through the sutures. Hematoma was expressed from the laceration. Additional 7 simple interrupted 4.0 Ethilon sutures were placed. Hemostasis was achieved after this patient was able to ambulate without bleeding from the wound. Compression dressing was placed on the wound as well. Patient given first dose of clindamycin here, allergy to penicillins with shortness of breath. Discharged home on clindamycin for antibiotic coverage given concern for dirty wound. Clinical impression laceration Fall Left shoulder pain Neck pain History & Record Review Discussion w/independent historian: Patient Radiography Diagnostic Testing: Clinical Impression(s) from Imaging Studies Tibia/Fibula X-Ray 06/26/25 08:47 IMPRESSION: Old healed fractures of the right calf. Reading Location: [facility] Shoulder X-Ray 06/26/25 09:03 IMPRESSION: Negative for acute abnormality of the left shoulder. Reading Location: [id number] Brain CT 06/26/25 09:06 IMPRESSION: No acute intracranial process Reading Location: [id number] Cervical Spine CT 06/26/25 09:06 IMPRESSION: 1. No acute fracture or subluxation in the cervical spine. 2. Nonspecific sclerotic changes in the clivus. Comparison with prior studies would be beneficial. Correlate clinically to determine the need for additional imaging and follow-up. 3. Partially visualized prominent ascending aorta. Reading [id number] Discharge Plan Triage Chief Complaint: Laceration ED Provider: Christel Pereyra Dx/Rx/DC Orders Clinical Impression: Laceration, Fall, Acute pain of left shoulder Instructions: Wound Care, ED Laceration Extremity Prescriptions: New clindamycin HCl [Cleocin HCl] 150 mg capsule 450 mg PO Q8H 7 Days Qty: 63 0RF Primary Care Provider: Care Physician,No Primary Referrals: Zamzam Staley MD [Med Staff - Granulizing Machine Operator] - 2 Days for wound check Care Physician,No Primary [Primary Care Provider] - Activity Restrictions/Additional Instructions: Please refer to the information sheet on wound care. As discussed keep the wound clean and dry. Wash with gentle soaps. Take the antibiotic as prescribed. You need to have the sutures removed in 7 to 10 days. You can follow-up with your primary care doctor for this or you can come back here to have them removed. Please follow-up with your primary care doctor for the incidental findings on your imaging that was done here today. The aortic changes were seen previously in 2016. The findings were as below: Nonspecific sclerotic changes in the clivus. Comparison with prior studies would be beneficial. Correlate clinically to determine the need for additional imaging and follow-up. Partially visualized prominent ascending aorta. Print Language: Serbian Disposition Disposition: Home, Self Care Discharge Date/Time: 06/26/25 11:25
[2025-06-26] MEDS: Lidocaine 2% /Epi 1:100 (20ml) 20 ML VIAL INFILT (09:02)
--- NOTE | 2025-06-26 09:03 | RAD_ITS ---
PROCEDURE: SHOULDER MIN 2 VIEWS 06/26/2025 REASON FOR EXAM: FALL Same level fall. TECHNIQUE: Procedure Code: RADSH Modality: DX Procedure: SHOULDER MIN 2 VIEWS Laterality: Left COMPARISON: None FINDINGS: Bones: Negative for fractures. Scapula otherwise negative. Proximal humerusotherwise negative. Clavicle negative. Joints: Degenerative changes of the left AC joint. No joint effusion. Soft tissues: Adjacent structures negative. Other: Remainder of the exam negative. RAD/Shoulder min 2 Views IMPRESSION: Negative for acute abnormality of the left shoulder. Reading Location: [id number]
--- NOTE | 2025-06-26 09:06 | CT_ITS ---
PROCEDURE: SPINE CERVICAL WITHOUT CONTRAS 06/26/2025 REASON FOR EXAM: FALL TECHNIQUE: Procedure Code: CTSPC Modality: CT Procedure: SPINE CERVICAL WITHOUT CONTRAS Coronal and Sagittal reconstruction series were provided. One or more dose reduction techniques were used (e.g., Automated exposure control, adjustment of the mA and/or kV according to patient size, use of iterative reconstruction technique. RADIATION DOSE SUMMARY: CTDlvol: 44.99 mGy DLP: 1636.66 mGycm COMPARISON: None FINDINGS: Alignment: Loss of the cervical lordosis may be positional in nature. Vertebrae: Vertebral body heights are maintained. Soft Tissues: No abnormal prevertebral soft tissue swelling. Other: Irregular sclerotic changes in the clivus series 5, image 20. No cortical destruction. No obvious extraosseous soft tissue component. C1-2: Within normal limits C2-3: Mild uncovertebral hypertrophy. Spinal canal is patent. Right neural foramen is patent. Mild left neural foraminal narrowing.. C3-4: Mild uncovertebral hypertrophy. The spinal canal is patent. The right neural foramina is patent. Mild left neural foraminal narrowing. C4-5: Mild uncovertebral hypertrophy. The spinal canal is patent. The right neural foramina is patent. Mild left neural foraminal narrowing C5-6: Mild uncovertebral hypertrophy. The spinal canal is patent. Mild right neural foraminal narrowing. Patent left neural foramen C6-7: No significant disc osteophyte complex. The spinal canal is patent. Mild bilateral neural foraminal narrowing. C7-T1: No significant disc bulge. Spinal canal and neural foramina are patent. Mildly prominent ascending aorta, partially visualized. CT/Spine Cervical without Contras IMPRESSION: 1. No acute fracture or subluxation in the cervical spine. 2. Nonspecific sclerotic changes in the clivus. Comparison with prior studies would be beneficial. Correlate clinically to determine the need for additional imaging and follow-up. 3. Partially visualized prominent ascending aorta. Reading [id number]
--- NOTE | 2025-06-26 09:06 | CT_ITS ---
PROCEDURE: BRAIN/HEAD WITHOUT CONTRAST 06/26/2025 REASON FOR EXAM: FALL TECHNIQUE: Procedure Code: CTBR Modality: CT Procedure: BRAIN/HEAD WITHOUT CONTRAST Coronal and Sagittal reconstruction series were provided. One or more dose reduction techniques were used (e.g., Automated exposure control, adjustment of the mA and/or kV according to patient size, use of iterative reconstruction technique. RADIATION DOSE SUMMARY: CTDlvol: 44.99 mGy DLP: 1636.66 mGycm COMPARISON: None FINDINGS: Brain: There is no acute intracranial hemorrhage. No region of vasogenic edema, mass effect, or midline shift. CSF Spaces: The ventricles are midline, without hydrocephalus. No significant extra-axial fluid collection. Sinuses/Mastoids: Mucosal retention cyst left maxillary sinus Bones: There is no skull fracture or destructive osseous lesion. CT/Brain/Head without Contrast IMPRESSION: No acute intracranial process Reading [id number]
--- OUTSIDE RECORDS SUMMARY | 2025-06-26 09:06 | XMS RPT_ITS | CCD ---
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 [facility] Care Team Providers Care Special Projects Coordinator Name Role Phone MADELINE SANZ Unavailable Unavailable Saloni Roberts Unavailable Unavailable Saloni Roberts Unavailable Unavailable Unavailable Primary Care Provider Unavailabl e Unavailable Primary Care Provider Unavailabl e Unavailable Primary Care Provider Unavailabl e PHYSICIAN, NONE Primary Care Physician Unavailab THOMPSON Sanchez MD Attending Unavailable PHYSICIAN, NONE Primary Care Unavailable Unavailable Primary Care Provider Unavailabl e Pcp [place]ACHUTE LINE TIER, No Primary Care Provider Unavailabl e PHYSICIAN, NONE Primary Care Unavailable JONES RIBEIRO MD Attending Unavailable LAURYN SKY Attending Unavailable JENARO YADAV Attending Unavailable Allergies Allergy Classification Reported Allergen(s) Allergy Type Date of Onset Reaction(s) Facility (20 sources) Penicillin; Translations: [Penicillin -class of antibiotic- (substance)] Drug Allergy 04-01-2016 Anaphylaxis [facility] Work Phone: (9 sources) Penicillins; Translations: [PENICILLINS] Propensity to adverse reactions to drug 02-25-2013 Anaphylaxis [facility] Work Phone: (20 sources) Penicillins Propensity to adverse reactions to drug 02-25-2013 Anaphylaxis [facility] Work Phone: (6 sources) Penicillins Propensity to adverse reactions to drug 02-25-2013 Anaphylaxis [facility] Medications Current Medications Medication Drug Class(es) Dates Sig (Normalized) Sig (Original) 8 hr acetaminophen 650 mg extended release oral tablet (4 sources) Start: 01-21-2025 End: 04-21-2025 take 1 tablet by mouth every eight hours as needed for pain acetaminophen (TYLENOL 8 HOUR) 650 mg CR tablet Indications: pain Take 1 tablet by mouth every 8 hours as needed for pain. 270 each 01/21/2025 04/21/2025 Active acetaminophen 325 mg / HYDROcodone bitartrate 5 mg oral tablet (2 sources) Opioid Agonist Start: 01-17-2022 take 1 tablet by mouth every four hours as needed Hydrocodone-Acetami nophen Active 1 TABLET PO EVERY 4 HOURS NEEDED 10 2 January 17, 2022 6:18pm Start: 05-27-2019 End: 05-30-2019 take 1 tablet by mouth every six hours as needed Hydrocodone-Acetaminophen Discontinued 1 TABLET PO EVERY 6 HOURS NEEDED 10 3 May 27, 2019 9:34am May 30, 2019 12:10am benzonatate 100 mg oral capsule (1 source) Non-narcotic Antitussive Start: 01-19-2024 End: 01-29-2024 Tessalon Perles 100 mg oral capsule Dose : 100 mg = 1 cap(s), Oral, TID, PRN as needed for cough, X 10 day(s), # 30 cap(s), 0 Refill(s), 01/29/24 1:25:00 PM EDT Start Date: 01/19/24 Stop Date: 01/29/24 Status: Ordered clindamycin 300 mg oral capsule (3 sources) Lincosamide Antibacterial Start: 01-17-2022 take 1 capsule by mouth every six hours Clindamycin Hcl (Cleocin Hcl) 300 MG capsule Active 300 MG PO EVERY 6 HOURS January 17, 2022 6:18pm Start: 09-22-2013 End: 11-11-2013 take 150 mg by mouth four times daily Clindamycin Hcl Discontinued 150 MG PO 4 TIMES DAILY September 22, 2013 6:53pm November 12, 2013 12:54am Start: 09-07-2013 End: 11-11-2013 take 300 mg by mouth three times daily Clindamycin Hcl Discontinued 300 MG PO THREE TIMES A DAY September 07, 2013 10:52pm November 12, 2013 12:54am cyclobenzaprine hydrochloride 10 mg oral tablet (3 sources) Muscle Relaxant Start: 01-21-2025 End: 03-22-2025 take 1 tablet by mouth three times daily as needed for pain cyclobenzaprine (FLEXERIL) 10 mg tablet Indications: Acute back pain with sciatica, left Take 1 tablet by mouth three times a day as needed for muscle spasm or pain. 90 tablet 1 01/21/2025 03/22/2025 Active diclofenac sodium 75 mg delayed release oral tablet (3 sources) Nonsteroidal Anti-inflammatory Drug Start: 01-21-2025 End: 03-22-2025 take 1 tablet by mouth twice daily diclofenac, EC, (VOLTAREN) 75 mg EC tablet Indications: Acute back pain with sciatica, left Take 1 tablet by mouth two times a day. 60 tablet 1 01/21/2025 03/22/2025 Active doxycycline hyclate 100 mg oral capsule (1 source) Tetracycline-class Drug Start: 01-19-2024 End: 01-29-2024 doxycycline hyclate 100 mg oral capsule Dose : 100 mg = 1 cap(s), Oral, q12h, X 10 day(s), # 20 cap(s), 0 Refill(s), 01/29/24 1:25:00 PM EDT, 114.9 Start Date: 01/19/24 Stop Date: 01/29/24 Status: Ordered 2 ml dupilumab 150 mg/ml prefilled syringe (20 sources) Interleukin-4 Receptor alpha Antagonist Start: 08-29-2023 End: 12-21-2024 dupilumab 300 mg/2 mL subcutaneous syringe (DUPIXENT SYRINGE) Indications: Eczema, unspecified type , Dermatitis Inject 1 syringe (300 mg) subcutaneously every 2 weeks 4 mL 5 03/25/2025 10:46 AM EDT 12/21/2024 Active Start: 08-08-2023 dupilumab (DUP IXENT PEN) 300 mg/2 mL pen injection Inject 1 pen (300mg) subcutaneously every 2 weeks. 4 mL 08/08/2023 Active Start: 08-08-2023 dupilumab (DUP IXENT PEN) 300 mg/2 mL pen injection Maintenance dose is 300 mg SQ every other week 4 mL 11 08/08/2023 Active Start: 12-24-2022 inject 300 mg by sub cutaneous injection every other week dupilumab 300 mg/2 mL subcutaneous syringe (DUPIXENT SYRINGE) Indications: Dermatitis Inject 300mg (1 syringe) subcutaneously every 2 weeks. 4 mL 5 12/24/2022 Active Start: 08-24-2022 End: 12-21-2022 inject 300 mg by subcutaneous injection every other week dupilumab 300 mg/2 mL subcutaneous syringe (DUPIXENT SYRINGE) Indications: Dermatitis Inject 300mg (1 syringe) subcutaneously every 2 weeks. 4 mL 3 08/24/2022 12/21/2022 Discontinued Start: 05-02-2022 End: 08-22-2022 inject 300 mg by subcutaneous injection every other week dupilumab 300 mg/2 mL subcutaneous syringe (DUPIXENT SYRINGE) Indications: Dermatitis Inject 300mg (1 syringe) subcutaneously every 2 weeks. 4 mL 3 05/02/2022 08/22/2022 Discontinued Start: 08-23-2021 End: 12-11-2021 inject 300 mg by subcutaneous injection every other week dupilumab 300 mg/2 mL subcutaneous syringe (DUPIXENT SYRINGE) Indications: Dermatitis Inject 300mg (1 syringe) subcutaneously every 2 weeks. 4 mL 3 12/11/2021 Active Comment on above: Inject 300mg (1 syri nge) subcutaneously every 2 weeks. Maintenance dose is 300 mg SQ every other week Inject 1 pen (300mg) subcutaneously every 2 weeks. Inject 1 syringe (30 0 mg) subcutaneously every 2 weeks ketoconazole 20 mg/ml medicated shampoo (20 sources) Azole Antifungal Start: 2022 ketoconazole (NIZORAL) 2 % shampoo Use as a body wash once daily for 4 weeks. After 4 weeks, decrease use to once per week as maintenance 120 mL 11 08/08/2023 Active Comment on above: Use as a body wash o nce daily for 4 weeks. After 4 weeks, decrease use to once per week as maintenance methylPREDNISolone (6 sources) Corticosteroid Start: 2024 methylPREDNISolone (MEDROL, KRISTINA,) 4 mg Dose-Pack Indications: Acute back pain with sciatica, left As Instructed per package 21 tablet 01/21/2025 Active sulfamethoxazole 800 mg / trimethoprim 160 mg oral tablet (1 source) Dihydrofolate Reductase Inhibitor Antibacterial, Sulfonamide Antimicrobial Start: 2024 End: 2024 take 1 tablet by mouth twice daily Bactrim DS 800 mg-160 mg oral tablet Dose = 1 tab(s), Oral, BID, X 7 day(s), # 14 tab(s), 0 Refill(s), Pharmacy: [id number], 113.4, kg, 10/31/24 0:30:00 EST, Dosing Weight Start Date: 10/31/24 Stop Date: 11/07/24 Status: Ordered Quantity: 14.0 Unit: tab(s) Repeat number: 1 Completed/Discontinued Medications Medication Drug Class(es) Dates Sig (Normalized) Sig (Original) acetaminophen 300 mg / codeine phosphate 30 mg oral tablet (1 source) Opioid Agonist Start: 09-22-2013 End: 11-11-2013 take 1 tablet by mouth every six hours as needed Acetaminophen-Code ine Discontinued 1 TABLET PO EVERY 6 HOURS NEEDED September 22, 2013 6:53pm November 12, 2013 12:54am acetaminophen 325 mg / oxyCODONE hydrochloride 5 mg oral tablet (1 source) Opioid Agonist Start: 09-07-2013 End: 11-11-2013 take 1 tablet by mouth every six hours as needed Oxycodone-Acetamin ophen Discontinued 1 - 2 TABLET PO EVERY 6 HOURS NEEDED September 07, 2013 11:40pm November 12, 2013 12:54am 30 ml bupivacaine hydrochloride 5 mg/ml injection (4 sources) Amide Local Anesthetic Start: 01-21-2025 End: 01-21-2025 BUPivacaine (PF) 0.5 % (5 mg/mL) 15 mg injection Start: 01-21-2025 End: 01-21-2025 inject 1 dose by intramuscular injection once 15 mg (3 mL), INTRAMUSCULAR, ONCE, 1 dose, On Araceli 01/21/25 at 1100 Start: 01-16-2022 End: 01-04-2022 bupivacaine (PF) 0.5 % (5 mg /mL) 2.5 mg injection Start: 01-04-2022 End: 01-05-2022 bupivacaine (PF) 0.5 % (5 mg /mL) 2.5 mg injection 1 ml dexamethasone phosphate 4 mg/ml injection (2 sources) Corticosteroid Start: 01-16-2022 End: 01-04-2022 dexAMETHasone sodium phosphate 2 mg injection (DECADRON) Start: 01-04-2022 End: 01-05-2022 dexAMETHasone sodium phospha te 2 mg injection (DECADRON) hydrocortisone 10 mg/ml / neomycin 3.5 mg/ml / polymyxin b [id number] unt/ml otic suspension (20 sources) Aminoglycoside Antibacterial, Polymyxin-class Antibacterial, Corticosteroid Start: 10-05-2021 End: 07-17-2024 xnhmwlhj-lsfunkibn-lrtewcsnq isone (CORTISPORIN) 3.5-10,000-1 mg/mL-unit/mL-% otic suspension Indications: Impacted cerumen of right ear , Acute otalgia, right Use 3 Drops in both ears four times daily. 10 mL 1 10/05/2021 05/06/2024 Discontinued (Course of therapy completed) Comment on above: Use 3 Drops in both ears four times allison y. ibuprofen 600 mg oral tablet (20 sources) Nonsteroidal Anti-inflammatory Drug Start: 09-19-2021 End: 05-06-2024 take 1 tablet by mouth every six hours as needed ibuprofen (MOTRIN) 600 mg tablet Take 1 tablet by mouth every 6 hours as needed for pain. 30 tablet 0 09/19/2021 05/06/2024 Discontinued Start: 09-22-2013 End: 11-11-2013 take 600 mg by mouth every six hours as needed Ibuprofen Discontinued 600 MG PO EVERY 6 HOURS NEEDED September 22, 2013 6:53pm November 12, 2013 12:54am Comment on above: Take 1 tablet by [facility] every 6 hours as needed for pain. 2 ml ketorolac tromethamine 30 mg/ml injection (2 sources) Nonsteroidal Anti-inflammatory Drug, Cyclooxygenase Inhibitor Start: 01-21-2025 End: 01-21-2025 keTORolac 30 mg injection (Toradol) Start: 01-21-2025 End: 01-21-2025 30 mg, INTRAMUSCULAR, ONCE, 1 dose, On Araceli 01/21/25 at 1100, Ketorolac (Toradol) is indicated for the short-term (up to 5 days) management of moderately severe acute pain. Continuation of ketorolac (Toradol) beyond 5 days increases the risk of developing serious adverse events. Please verify the duration of therapy for ketorolac (Toradol). predniSONE 10 mg oral tablet (20 sources) Start: 09-19-2021 End: 05-06-2024 predniSONE (DELTASONE) 10 mg tablet Take 4 tabs daily for 3 days, then 2 tabs daily for 3 days, then 1 tab daily for 3 days with food. 21 tablet 0 09/19/2021 05/06/2024 Discontinued (Course of therapy completed) Start: 11-25-2019 End: 12-05-2019 take 40 mg by mouth once daily at mealtime Prednisone Discontinued 40 MG PO DAILY November 25, 2019 12:01pm December 05, 2019 1:09am With food Comment on above: Take 4 tabs daily fo r 3 days, then 2 tabs daily for 3 days, then 1 tab daily for 3 days with food. 1 ml triamcinolone acetonide 40 mg/ml injection (20 sources) Corticosteroid Start: 01-21-2025 End: 01-21-2025 triamcinolone acetonide 40 mg injection (KeNALog 40) Start: 01-21-2025 End: 01-21-2025 inject 1 dose by intramuscular injection once 40 mg, INTRAMUSCULAR, ONCE, 1 dose, On Araceli 01/21/25 at 1100 Start: 08-08-2023 End: 12-21-2024 triamcinolone acetonide (YASEMIN ALOG) 0.1 % cream Indications: Eczema, unspecified type Apply to affected areas twice daily Saturday-Saturday as needed. Avoid face, groin, and armpits 453.6 g 12/21/2024 Active Start: 08-05-2022 End: 05-06-2024 triamcinolone acetonide (YASEMIN ALOG) 0.1 % cream Indications: Dermatitis Apply 1 application to affected area twice daily. Apply to affected area. Location: rash 30 g 1 08/05/2022 05/06/2024 Discontinued Start: 01-16-2022 End: 01-16-2022 triamcinolone acetonide 5 mg injection (KENALOG 10) Start: 01-04-2022 End: 01-05-2022 triamcinolone acetonide 5 mg injection (KENALOG 10) Start: 08-23-2021 End: 07-31-2022 triamcinolone acetonide (YASEMIN ALOG) 0.1 % cream Indications: Dermatitis Apply 1 application to affected area twice daily. Apply to affected area. Location: rash 30 g 1 05/02/2022 07/31/2022 Discontinued Comment on above: Apply 1 application to affected area twice daily. Apply to affected area. Location: rash Apply to affected ar eas twice daily Saturday-Saturday as needed. Avoid face, groin, and armpits Problems Active Problems Problem Classification Problem Date Documented Da te Episodic/Chronic Abdominal hernia (2 sources) Right inguinal hernia 07-14-2020 Episodic Anxiety disorders (20 sources) Generalized anxiety disorder; Translations: [Generalized anxiety disorder] Onset: 07-24-2016 07-24-2016 Chronic Aortic; peripheral; and visceral artery aneurysms (20 sources) Thoracic aortic aneurysm, without rupture; Translations: [Ascending aorta dilatation] Onset: 05-22-2017 04-09-2018 Chronic Blindness and vision defects (1 source) Blurring of visual image; Translations: [Other visual disturbances] 05-06-2024 Episodic Disorders of teeth and jaw (3 sources) Toothache; Translations: [Other specified disorders of teeth and supporting structures] Episodic Malaise and fatigue (1 source) Fatigue; Translations: [Other fatigue] 05-06-2024 Episodic Mycoses (1 source) Pityriasis versicolor; Translations: [Pityriasis versicolor] 08-08-2023 Episodic Nonspecific chest pain (4 sources) Chest pain; Translations: [Chest pain, unspecified] 01-10-2024 Episodic Other connective tissue disease (1 source) Plantar fasciitis of right foot; Translations: [Plantar fascial fibromatosis] Episodic Other connective tissue disease (2 sources) Pain in right foot; Translations: [Pain in right foot] Episodic Other connective tissue disease (1 source) Plantar fasciitis of left foot; Translations: [Plantar fascial fibromatosis] 01-21-2025 Episodic Other connective tissue disease (1 source) Myofascial pain; Translations: [Myalgia, other site] 01-21-2025 Episodic Other ear and sense organ disorders (1 source) Impacted cerumen; Translations: [Impacted cerumen, unspecified ear] Episodic Other ear and sense organ disorders (1 source) Excessive cerumen in ear canal ; Translations: [Impacted cerumen, unspecified ear] Episodic Other inflammatory condition of skin (1 source) Psoriasis; Translations: [Psoriasis, unspecified] Chronic Other screening for suspected conditions (not mental disorders or infectious disease) (2 sources) Patient encounter status; Translations: [Encounter for screening for lipoid disorders] 05-06-2024 Episodic Other upper respiratory disease (1 source) Disorder of the nose; Translations: [Abscess, furuncle and carbuncle of nose] Onset: 10-31-2024 Episodic Spondylosis; intervertebral disc disorders; other back problems (5 sources) Acute back pain with sciatica; Translations: [Disorder of left sciatic nerve] 01-21-2025 Episodic Substance-related disorders (20 sources) Smoker; Translations: [Nicotine dependence, unspecified, uncomplicated] Onset: 12-27-2015 10-16-2021 Chronic Syncope (1 source) Near syncope; Translations: [Syncope and collapse] 05-06-2024 Episodic Unclassified (1 source) Patient encounter status 01-21-2025 Past or Other Problems Problem Classification Problem Date Documented Da te Episodic/Chronic Allergic reactions (20 sources) Contact dermatitis; Translations: [Unspecified contact dermatitis, unspecified cause] Onset: 12-21-2024 Episodic Cardiac dysrhythmias (20 sources) Palpitations; Translations: [Palpitations] Onset: 07-24-2016 07-24-2016 Episodic Diabetes mellitus without complication (20 sources) Hyperglycemia; Translations: [Hyperglycemia, unspecified] Onset: 07-24-2016 07-24-2016 Episodic Other diseases of kidney and ureters (20 sources) Renal impairment; Translations: [Disorder of kidney and ureter, unspecified] Onset: 07-24-2016 07-24-2016 Episodic Residual codes; unclassified (20 sources) FH: premature coronary heart disease; Translations: [Family history of ischemic heart disease and other diseases of the circulatory system] Onset: 07-24-2016 07-24-2016 Episodic Results Test Name Value Interpretation Reference Range Facility [facility] 03-23-2025 CNCO Letter Text Normal [facility] CNOVon 01-21-2025 CNOV Office Visit (PAINST ) BOO SWEENEY ([id number]) 1970 M Date Time Provider Department 01/21/25 10:00 AM JENARO YADAV During your visit today, we recorded the following information about you: Pulse Blood pressure Weight 99/minute 137/81 107.5 kg Jenaro Yadav MD 01/21/2025 10:54 AM Signed Pain Management New Patient Evaluation Patient Name: Boo Sweeney MR #: [id number] Age: [age] year old Date: 01/21/2025 Referred by: No referring provider defined for this encounter. Phone: N/A Fax: Chief Complaint: This patient is a 54 year old male Patient presents with: Low Back Pain: LBP that radiates down into left buttock and wraps around into left frontal thigh x 5-6 weeks. Pt recalls last incident of low back pain was 10 years ago. This Episode: Date of Onset for this episode: 5-6 weeks Pattern: Constant, Daily, and Worsening. Character: Electric Shock going down his back Severity: VAS Pain: 7/10 Current; 10/10 Worst; 5/10 Best. Radiation: radiating to left leg. Exacerbating Factors: prolonged standing . Always there Alleviating Factors: heat-hot bath . Associated Signs/Symptoms: Sleep disturbance; awakens during night due to pain. Sensory/Motor Changes: Tingling or Numbness. Progressive Weakness?: No. AM Stiffness?: Yes. Duration: 10-15 minutes. Changes in Bowel/Bladder Control?: No. Past History of Pain in similar or same area: No 12/21/2024 01/21/2025 INTAKE PAIN ASSESSMENT Are you having pain associated with your visit today? No Yes, Provider notified Pain Scales Verbal (Numeric Rating or Visual Analog Scale) Pain Level 7 Pain Location Back-Lower Description Other: See comment Duration Amount of Time 6 Duration Units Weeks Frequency Continuous Intervention/Comfort measure Heat Previous Treatments: OTC Meds: muscle cream Effect: no relief Prescription Meds: none Effect: NA General: heat . Effect: temporary relief Assistive Devices: NA Physical Therapy: none Pain Procedure(s): No Effects of Pain: Personal Care: Independent . Household Tasks: Independent . Job Functions: Independent . 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 PAST MEDICAL HISTORY Diagnosis Date Mild dilation of ascending aorta 04/09/2018 Smoker 12/27/2015 Started at age 17, 1PPD PAST SURGICAL HISTORY Procedure Laterality Date LAPAROSCOPY SURG RPR INITIAL INGUINAL HERNIA Right 07/2020 PAST SURGICAL HISTORY OF pins/screws right lower leg Social History Tobacco Use Smoking status: Every Day Current packs/day: 1.00 Average packs/day: 1 pack/day for 25.0 years (25.0 ttl pk-yrs) Types: Cigarettes Smokeless tobacco: Never Substance Use Topics Alcohol use: Yes Alcohol/week: 12.0 standard drinks of alcohol Types: 12 Cans of Beer (12oz) per week Drug use: No FAMILY HISTORY Problem Relation Age of Onset Diabetes Maternal Grandfather Psychiatry Mother other (parkinson's) Mother Coronary Artery Disease Father 40's other (meningitis) Father Current Outpatient Medications on File Prior to Visit Medication Sig dupilumab 300 mg/2 mL subcutaneous syringe (DUPIXENT SYRINGE) Inject 1 syringe (300 mg) subcutaneously every 2 weeks triamcinolone acetonide (KENALOG) 0.1 % cream Apply to affected areas twice daily Saturday-Saturday as needed. Avoid face, groin, and armpits ketoconazole (NIZORAL) 2 % shampoo Use as a body wash once daily for 4 weeks. After 4 weeks, decrease use to once per week as maintenance (Patient not taking: Reported on 12/21/2024) No current facility-administered medications on file prior to visit. ALLERGIES Allergen Reactions Penicillins Anaphylaxis REVIEW OF SYSTEMS / Per patient verbal report . Review of Systems: General Appearance: pleasant. General: Normal/Negative. Skin: rash. Heart/Lungs: mild dilatation of ascending aorta, palpitations. GI: Normal/Negative. /INCLINOMETER TESTER: renal insufficiency. Heme: Normal/Negative. Endo: Normal/Negative. Neuro: anxiety. HEENT: Normal/Negative Skeletal: low back pain. Is patient on blood thinners? No Patient feels safe at home: Yes BP 137/81 Pulse 99 Wt 107.5 kg (237 lb) SpO2 97% BMI 31.48 kg/m? Imaging / Lab Results: no imaging Latest Reference Range AND Units 05/18/24 08:35 Sodium 136 - 144 mmol/L 139 Potassium 3.7 - 5.1 mmol/L 4.4 Chloride 98 - 107 mmol/L 105 CO2 22 - 30 mmol/L 24 BUN 9 - 24 mg/dL 15 Creatinine 0.73 - 1.22 mg/dL 0.93 Glucose 74 - 99 mg/dL 102 (H) Protein, Total 6.3 - 8.0 g/dL 6.8 Calcium 8.5 - 10.2 mg/dL 9.1 Albumin 3.9 - 4.9 g/dL 4.3 Bilirubin, Total 0.2 - 1.3 mg/dL 0.4 Alkaline Phosphatase 38 - 113 U/L 88 ALT 10 - 54 U/L 17 AST 14 - 40 U/L 15 (H): Data is abnormally high Latest Reference Range AND Units 05/18/24 08:35 WBC 3.70 - 11.00 k/uL 7.30 RBC 4.20 - 6.00 m/uL 5.51 Hemoglobin 13.0 - 17.0 g/dL 16.0 Hematocrit 39.0 - 51.0 % 50.7 Platelet Coun (more content not included)... Normal [facility] .Auto Diffon 01-19-2024 Basophil, Absolute 0.1 10 3/mcL Normal 0.0-0.2 [facility] ([place]) Comment on above: Performed By: #### B MP, ADIFF, GFR, CBC, GILBERT ESTEVEZ, TROPHS #### [address] [address] Basophils/100 WBC (Bld) 0.9 % Normal 0.0-2.5 [facility] ([place]) Comment on above: Performed By: #### B MP, ADIFF, GFR, CBC, GILBERT ESTEVEZ, TROPHS #### [address] [address] Eosinophil, Absolute 0.2 10 3/mcL Normal 0.0-0.4 [facility] ([place]) Comment on above: Performed By: #### B MP, ADIFF, GFR, CBC, GILBERT ESTEVEZ, TROPHS #### [address] [address] Eosinophils/100 WBC (Bld) 2.6 % Normal 0.0-7.0 [facility] ([place]) Comment on above: Performed By: #### B MP, ADIFF, GFR, CBC, GILBERT ESTEVEZ, TROPHS #### [address] [address] Lymphocyte, Absolute 1.5 10 3/mcL Normal 0.8-3.9 [facility] ([place]) Comment on above: Performed By: #### B MP, ADIFF, GFR, CBC, GILBERT ESTEVEZ, TROPHS #### [address] [address] Lymphocytes/100 WBC (Bld) 25.1 % Normal 10.0-50.0 [facility] ([place]) Comment on above: Performed By: #### B MP, ADIFF, GFR, CBC, GILBERT ESTEVEZ, TROPHS #### [address] [address] Monocyte, Absolute 0.4 10 3/mcL Normal 0.2-1.0 [facility] ([place]) Comment on above: Performed By: #### B MP, ADIFF, GFR, CBC, GILBERT ESTEVEZ, TROPHS #### [address] [address] Monocytes/100 WBC (Bld) 6.0 % Normal 1.7-13.0 [facility] ([place]) Comment on above: Performed By: #### B MP, ADIFF, GFR, CBC, GILBERT ESTEVEZ, TROPHS #### [address] [address] Neutrophils/100 WBC (Bld) 65.4 % Normal 37.0-80.0 [facility] ([place]) Comment on above: Performed By: #### B MP, ADIFF, GFR, CBC, GILBERT ESTEVEZ, TROPHS #### [address] [address] .GFRon 01-19-2024 GFR 95 ml/min/1.73sqm Normal [facility] ([place]) Comment on above: Result Comment: GFR Population mean for , Non- Americans Ages 20-29 = 116 mL/min/1.73 sq.m. Ages 30-39 = 107 mL/min/1.73 sq.m. Ages 40-49 = 99 mL/min/1.73 sq.m. Ages 50-59 = 93 mL/min/1.73 sq.m. Ages 60-69 = 85 mL/min/1.73 sq.m. Ages 70+ = 75 mL/min/1.73 sq.m. Chronic Kidney Disease: Less than 60 mL/min/1.73 square meters End Stage Renal Disease: Less than 15 mL/min/1.73 square meters Performed By: #### B MP, ADIFF, GFR, CBC, GILBERT ESTEVEZ, TROPHS #### [address] [address] GFR Non- 78 ml/min/1.73sqm Normal [facility] ([place]) Comment on above: Result Comment: GFR Population mean for , Non- Americans Ages 20-29 = 116 mL/min/1.73 sq.m. Ages 30-39 = 107 mL/min/1.73 sq.m. Ages 40-49 = 99 mL/min/1.73 sq.m. Ages 50-59 = 93 mL/min/1.73 sq.m. Ages 60-69 = 85 mL/min/1.73 sq.m. Ages 70+ = 75 mL/min/1.73 sq.m. Chronic Kidney Disease: Less than 60 mL/min/1.73 square meters End Stage Renal Disease: Less than 15 mL/min/1.73 square meters Performed By: #### B MP, ADIFF, GFR, CBC, GILBERT ESTEVEZ, TROPHS #### [address] [address] [address] .MDWon 01-19-2024 Monocyte Distribution Width 19.18 Normal 0.00-20.00 [facility] ([place]) Comment on above: Result Comment: For ED adult patients suspected of sepsis, MDW<=20.0 does not rule out sepsis or risk of sepsis Performed By: #### B MP, ADIFF, GFR, CBC, GILBERT ESTEVEZ, TROPHS #### [address] [address] .NEUABSon 01-19-2024 Neutrophil, Absolute 3.9 10 3/mcL Normal 2.9-6.2 [facility] ([place]) Comment on above: Performed By: #### B MP, ADIFF, GFR, CBC, GILBERT ESTEVEZ, TROPHS #### [address] [address] BMPon 01-19-2024 BUN/Creatinine Ratio 11 ratio Normal 7-27 [facility] ([place]) Comment on above: Performed By: #### B MP, ADIFF, GFR, CBC, GILBERT ESTEVEZ, TROPHS #### [address] [address] Calcium [Mass/Vol] 8.2 mg/dL Low 8.4-10.2 [facility] ([place]) Comment on above: Performed By: #### B MP, ADIFF, GFR, CBC, ANEU, MDW, TROPHS #### [address] [address] Chloride [Moles/Vol] 106 mmol/L Normal 98-107 [facility] ([place]) Comment on above: Performed By: #### B MP, ADIFF, GFR, CBC, ANEU, MDW, TROPHS #### [address] [address] CO2 [Moles/Vol] 28 mmol/L Normal 22-29 [facility] ([place]) Comment on above: Performed By: #### B MP, ADIFF, GFR, CBC, ANEU, MDW, TROPHS #### [address] [address] Electrolyte Balance 8.0 mEq/L Normal 4.0-15.0 [facility] ([place]) Comment on above: Performed By: #### B MP, ADIFF, GFR, CBC, ANEU, W, TROPHS #### [address] [address] Glucose [Mass/Vol] 140 mg/dL High 70-105 [facility] ([place]) Comment on above: Performed By: #### B MP, ADIFF, GFR, CBC, ANEU, MDW, TROPHS #### [address] [address] Potassium [Moles/Vol] 4.4 mmol/L Normal 3.5-5.1 [facility] ([place]) Comment on above: Performed By: #### B MP, ADIFF, GFR, CBC, ANEU, MDW, TROPHS #### [address] [address] Sodium [Moles/Vol] 142 mmol/L Normal 136-145 [facility] ([place]) Comment on above: Performed By: #### B MP, ADIFF, GFR, CBC, ANEU, MDW, TROPHS #### [address] [address] Urea nitrogen [Mass/Vol] 11 mg/dL Normal 7-18 [facility] ([place]) Comment on above: Performed By: #### B MP, ADIFF, GFR, CBC, ANEU, MDW, TROPHS #### [place] [id number] Creatinine [Mass/Vol] 1.00 mg/dL Normal 0.70-1.30 [facility] ([place]) Comment on above: Performed By: #### B MP, ADIFF, GFR, CBC, ANEU, MDW, TROPHS #### [place] [address] CBCon 01-19-2024 Erythrocyte distribution width (RBC) [Ratio] 13.7 % Normal 11.5-14.5 [facility] ([place] Comment on above: Performed By: #### B MP, ADIFF, GFR, CBC, ANEU, MDW, TROPHS #### [address] [address] Hematocrit (Bld) [Volume fraction] 44.4 % Normal 42.0-52.0 [facility] ([place]) Comment on above: Performed By: #### B MP, ADIFF, GFR, CBC, ANEU, MDW, TROPHS #### [address] [address] Hgb 15.2 G/dL Normal 14.0-18.0 [facility] ([place] Comment on above: Performed By: #### B MP, ADIFF, GFR, CBC, ANEU, MDW, TROPHS #### [address] [address] MCH (RBC) [Entitic mass] 30.2 pg Normal 27.0-31.2 [facility] ([place] Comment on above: Performed By: #### B MP, ADIFF, GFR, CBC, ANEU, MDW, TROPHS #### [place] [id number] MCHC 34.2 G/dL Normal 31.8-35.4 [facility] ([place] Comment on above: Performed By: #### B MP, ADIFF, GFR, CBC, GILBERT ESTEVEZ, TROPHS #### [address] [address] MCV (RBC) [Entitic vol] 88.2 fL Normal 80.0-94.0 [facility] ([place] Comment on above: Performed By: #### B MP, ADIFF, GFR, CBC, ANEU, W, TROPHS #### [address] [address] Platelet 206 10 3/mcL Normal 130-400 [facility] ([place]) Comment on above: Performed By: #### B MP, ADIFF, GFR, CBC, ANEU, MDW, TROPHS #### [address] [address] Platelet mean volume (Bld) [Entitic vol] 8.3 fL Normal 7.4-10.4 [facility] ([place]) Comment on above: Performed By: #### B MP, ADIFF, GFR, CBC, ANEU, W, TROPHS #### [address] [address] RBC 5.03 10 6/mcL Normal 4.04-6.13 [facility] ([place]) Comment on above: Performed By: #### B MP, ADIFF, GFR, CBC, ANEU, W, TROPHS #### [address] [address] WBC 5.9 10 3/mcL Normal 4.6-10.8 [facility] ([place]) Comment on above: Performed By: #### B MP, ADIFF, GFR, CBC, ZENAIDA, MDW, TROPHS #### [address] [address] [address] ANGIOGRAPHY CHEST W/CONTR Lanette 01-19-2024 CT ANGIOGRAPHY CHEST W/CONTRAST ORIGINAL EXAMINATION: CTA OF THE CHEST 01/19/2024 12:52 pm TECHNIQUE: CTA of the chest was performed after the administration of intravenous contrast. Multiplanar reformatted images are provided for review. MIP images are provided for review. Automated exposure control, iterative reconstruction, and/or weight based adjustment of the mA/kV was utilized to reduce the radiation dose to as low as reasonably achievable. COMPARISON: 10/22/2016. HISTORY: ORDERING SYSTEM PROVIDED HISTORY: Reason for Exam: difficulty breathing; suspect DISSECTION FINDINGS: Pulmonary Arteries: Pulmonary arteries are adequately opacified for evaluation. No evidence of intraluminal filling defect to suggest pulmonary embolism. Main pulmonary artery is normal in caliber. Mediastinum: No evidence of mediastinal lymphadenopathy. The heart and pericardium demonstrate no acute abnormality. The ascending thoracic aorta is 4.4 cm at the main pulmonary artery. No dissection visualized. There is no gating. No unenhanced series performed. Normal aortic arch branching pattern.. Lungs/pleura: Mild emphysematous changes. Bilaterally in the lungs there is dependent atelectasis. There is also mild atelectasis/scarring of lingula. No large focal consolidation or evidence of edema. No pleural effusion or pneumothorax. 3 mm juxtapleural left upper lobe nodule (series 2, image 54). Right upper lobe 3 mm nodule (series 2, image 75). Upper Abdomen: Scattered hepatic hypodensities, likely cysts. Splenomegaly noted.. Soft Tissues/Bones: No acute bone or soft tissue abnormality. Mildly degenerative spine. IMPRESSION: Motion artifacts. Mild ectasia of the ascending thoracic aorta. No dissection is identified Mild emphysema. Scattered tiny pulmonary nodules. See below. I have personally reviewed the images of this examination and agree with the resident's findings and interpretation. RECOMMENDATIONS: Multiple pulmonary nodules. Most significant: Left solid pulmonary nodule within the upper lobe measuring 3 mm. Per Fleischner Society Guidelines, a non-contrast Chest CT at 12 months is optional. If performed and the nodule is stable at 12 months, no further follow-up is recommended. These guidelines do not apply to immunocompromised patients and patients with cancer. Follow up in patients with significant comorbidities as clinically warranted. For lung cancer screening, adhere to Lung-RADS guidelines. Reference: Radiology. 2017; 284(1):228-43. Interpreted by: Sivakumar Desouza MD Preliminary Report By: Edwin Romero Electronically signed By Sivakumar Desouza MD Dictated Date: 01/19/2024 12:53:26 PM Prelim Date: 01/19/2024 1:02:26 PM Sign Date: 01/19/2024 1:36:04 PM Ordering Provider: THOMPSON Zaragoza [facility] ([place]) Tonio 01-19-2024 D-Dimer <200 Normal 0-230 [facility] ([place]) Comment on above: Result Comment: DDN: Results reported in D-DU ng/mL. Negative for D-dimer. DVT/PE is highly unlikely. Note: False negative results may be seen in patients on anticoagulant therapy. The result of the D-Dimer test should be evaluated in the context of all the clinical and laboratory data available. In those instances where the laboratory result does not agree with the clinical evaluation, additional tests should be performed accordingly. If the D-Dimer result is used to exclude DVT or PE, the recommended cutoff value is less than 230 ng/mL. The D-Dimer result should not be used alone to rule in DVT/PE, but should be used in conjunction with a clinical pretest probability (PTP)assessment model to exclude venous thromboembolism (VTE) in outpatients suspected of deep venous thrombosis (DVT) and pulmonary embolism (PE). Performed By: #### D NAE #### [place] [address] LABORATORYOrdered By: SYSTEM SYSTEM on 01-19-2024 Troponin I.cardiac DL <= 0.01 ng/mL [Mass/Vol] 5 ng/L Normal 0 - 76 ng/L AO ADM SS Comment on above: Interpretive Data: H igh Sensitive Troponin I Reference Ranges: Female: 0-51 ng/L Male: 0-76 ng/L Testing performed on [employer] using a homogeneous sandwich chemiluminescent immunoassay based on Testive technology. Basophil, Absolute 0.1 103/mcL Normal 0.0 - 0.2 10^3/mcL AO Workflow SS Basophils/100 WBC (Bld) 0.9 % Normal 0.0 - 2.5 % AO Workflow SS Calcium [Mass/Vol] 8.2 mg/dL Low 8.4 - 10. 2 mg/dL AO ADM SS Chloride [Moles/Vol] 106 mmol/L Normal 98 - 10 7 mmol/L AO ADM SS CO2 [Moles/Vol] 28 mmol/L Normal 22 - 29 mmol/L AO ADM SS Creatinine [Mass/Vol] 1.00 mg/dL Normal 0.70 - 1.30 mg/dL AO ADM SS Electrolyte Balance 8.0 mEq/L Normal 4.0 - 15 .0 mEq/L AO ADM SS Eosinophil, Absolute 0.2 103/mcL Normal 0.0 - 0 .4 10^3/mcL AO Workflow SS Eosinophils/100 WBC (Bld) 2.6 % Normal 0.0 - 7.0 % AO Workflow SS Erythrocyte distribution width (RBC) [Ratio] 13.7 % Normal 11.5 - 14.5 % AO Workflow SS GFR/1.73 sq M.predicted among blacks MDRD (S/P/Bld) [Vol rate/Area] 95 ml/min/1.73sqm Invalid Interpretation Code AO Chemistry S Comment on above: Interpretive Data: GFR Population mean for , Non- Americans Ages 20-29 = 116 mL/min/1.73 sq.m. Ages 30-39 = 107 mL/min/1.73 sq.m. Ages 40-49 = 99 mL/min/1.73 sq.m. Ages 50-59 = 93 mL/min/1.73 sq.m. Ages 60-69 = 85 mL/min/1.73 sq.m. Ages 70+ = 75 mL/min/1.73 sq.m. Chronic Kidney Disease: Less than 60 mL/min/1.73 square meters End Stage Renal Disease: Less than 15 mL/min/1.73 square meters GFR/1.73 sq M.predicted among non-blacks MDRD (S/P/Bld) [Vol rate/Area] 78 ml/min/1.73sqm Invalid Interpretation Code AO Chemistry S Comment on above: Interpretive Data: GFR Population mean for , Non- Americans Ages 20-29 = 116 mL/min/1.73 sq.m. Ages 30-39 = 107 mL/min/1.73 sq.m. Ages 40-49 = 99 mL/min/1.73 sq.m. Ages 50-59 = 93 mL/min/1.73 sq.m. Ages 60-69 = 85 mL/min/1.73 sq.m. Ages 70+ = 75 mL/min/1.73 sq.m. Chronic Kidney Disease: Less than 60 mL/min/1.73 square meters End Stage Renal Disease: Less than 15 mL/min/1.73 square meters Glucose [Mass/Vol] 140 mg/dL High 70 - 105 mg/dL AO ADM SS Hematocrit (Bld) [Volume fraction] 44.4 % Normal 42.0 - 52.0 % AO Workflow SS Hemoglobin (Bld) [Mass/Vol] 15.2 G/dL Normal 14.0 - 18.0 G/dL AO Workflow SS Lymphocyte, Absolute 1.5 103/mcL Normal 0.8 - 3 .9 10^3/mcL AO Workflow SS Lymphocytes/100 WBC (Bld) 25.1 % Normal 10.0 - 50.0 % AO Workflow SS MCH (RBC) [Entitic mass] 30.2 pg Normal 27.0 - 31.2 pg AO Workflow SS MCHC 34.2 G/dL Normal 31.8 - 35.4 G/dL AO Workflow SS MCV (RBC) [Entitic vol] 88.2 fL Normal 80.0 - 94.0 fL AO Workflow SS Monocyte distribution width Auto (Bld) [Entitic vol] 19.18 1 Normal 0.00 - 20.00 AO Workflow SS Comment on above: Result Comment: For ED adult patients suspected of sepsis, MDW<=20.0 does not rule out sepsis or risk of sepsis Monocyte, Absolute 0.4 103/mcL Normal 0.2 - 1.0 10^3/mcL AO Workflow SS Monocytes/100 WBC (Bld) 6.0 % Normal 1.7 - 13.0 % AO Workflow SS Neutrophil, Absolute 3.9 103/mcL Normal 2.9 - 6 .2 10^3/mcL AO Workflow SS Neutrophils/100 WBC (Bld) 65.4 % Normal 37.0 - 80.0 % AO Workflow SS Platelet mean volume (Bld) [Entitic vol] 8.3 fL Normal 7.4 - 10.4 fL AO Workflow SS Platelets (Bld) [#/Vol] 206 103/mcL Normal 130 - 400 10^3/mcL AO Workflow SS Potassium [Moles/Vol] 4.4 mmol/L Normal 3.5 - 5.1 mmol/L AO ADM SS RBC (Bld) [#/Vol] 5.03 106/mcL Normal 4.04 - 6.1 3 10^6/mcL AO Workflow SS Sodium [Moles/Vol] 142 mmol/L Normal 136 - 145 mmol/L AO ADM SS Troponin I.cardiac DL <= 0.01 ng/mL [Mass/Vol] 6 ng/L Normal 0 - 76 ng/L AO ADM SS Comment on above: Interpretive Data: H igh Sensitive Troponin I Reference Ranges: Female: 0-51 ng/L Male: 0-76 ng/L Testing performed on [employer] using a homogeneous sandwich chemiluminescent immunoassay based on [employer] technology. Urea nitrogen [Mass/Vol] 11 mg/dL Normal 7 - 18 mg/dL AO ADM SS Urea nitrogen/Creatinine [Mass ratio] 11 ratio Normal 7 - 27 ratio AO ADM SS WBC (Bld) [#/Vol] 5.9 103/mcL Normal 4.6 - 10.8 10^3/mcL AO Workflow SS LABORATORYOrdered By: Gigi Jimenez on 01-19-2024 Fibrin D-dimer DDU (PPP) [Mass/Vol] ng/mL D-DU Normal 0 - 230 ng/mL D-DU AO [employer] SS Comment on above: Result Comment: DDN: Results reported in D-DU ng/mL. Negative for D-dimer. DVT/PE is highly unlikely. Note: False negative results may be seen in patients on anticoagulant therapy. Interpretive Data: T he result of the D-Dimer test should be evaluated in the context of all the clinical and laboratory data available. In those instances where the laboratory result does not agree with the clinical evaluation, additional tests should be performed accordingly. If the D-Dimer result is used to exclude DVT or PE, the recommended cutoff value is less than 230 ng/mL. The D-Dimer result should not be used alone to rule in DVT/PE, but should be used in conjunction with a clinical pretest probability (PTP)assessment model to exclude venous thromboembolism (VTE) in outpatients suspected of deep venous thrombosis (DVT) and pulmonary embolism (PE). [facility] 01-19-2024 High Sensitivity Troponin I 5 ng/L Normal 0-76 [facility] ([place]) Comment on above: Result Comment: High Sensitive Troponin I Reference Ranges: Female: 0-51 ng/L Male: 0-76 ng/L Testing performed on [employer] using a homogeneous sandwich chemiluminescent immunoassay based on [employer] technology. Performed By: #### T [facility] #### [address] [address] High Sensitivity Troponin I 6 ng/L Normal 0-76 [facility] ([place]) Comment on above: Result Comment: High Sensitive Troponin I Reference Ranges: Female: 0-51 ng/L Male: 0-76 ng/L Testing performed on [employer] using a homogeneous sandwich chemiluminescent immunoassay based on [employer] technology. Performed By: #### B MP, KYREE, GFR, CBC, ANEU, MDW, TROPHS #### [address], [place] [address] Emergency Department Summary on 01-17-2022 Emergency Department Summary [facility] Medical Records Department [address] [place] [address] Emergency Department Summary 01/17/22 MR#: [id number] Acct: [id number] Name: BOO SWEENEY Rep #: [id number] : 1970 51 From: Yannick Roca DO PCP: Care Physician,No Primary Status:DEP ER Location: ED HPI History of Present Illness Chief Complaint: Dental Detail of Chief Complaint: Dental pain x3 days Onset/Context/Timing Current Severity: Severe Narrative Narrative: Patient presents to the ER with complaint of left lower dental pain that started 3 days ago. Patient states that his dentist called him in a prescription for Keflex yesterday but feels like he is getting worse. He has pain that kind of radiates under his jaw and to the back of his throat. He complains of a headache. He denies fever but has had some chills. Patient otherwise has no medical history. Prior similar symptoms: No PFSH PFSH Medical History (Updated 01/17/22 @ 18:[address] Yannick Roca DO) Bilateral groin pain Dental abscess Excessive cerumen in ear canal Psoriasis Home Medications clindamycin HCl [Cleocin HCl] 300 mg PO Q6H #40 capsule 01/17/22 [Rx Last Taken Unknown] hydrocodone-acetamino phen 1 tab PO Q4H PRN PRN 2 Days #10 tablet 01/17/22 [Rx Last Taken Unknown] Allergy/AdvReac Type Severity Reaction Status Date / Time Penicillins Allergy Shortness Verified 01/17/22 18:03 of breath Family History Mother Colon cancer Surgical History history left inguinal herniorrhaphy Social History (Updated 03/29/20 @ 09:[address] Dariusz Godwin MD) Smoking Status: Current every day smoker tobacco type: cigarettes alcohol intake: never substance use type: does not use ROS ROS ED Constitutional Constitutional ED: Reports systems reviewed and no addt'l complaints, except as documented; Denies body ache(s), change in weight or chills Eyes Eyes: Denies acute decrease in peripheral vision, change in vision, double vision or loss of vision ENT ENT ED: Reports none, sore throat and other Details: Dental pain ; Denies ear pain, lip swelling, loss taste/smell, neck pain or otalgia Cardiovascular Cardiovascular: Reports none; Denies abdominal pain, chest pain with activity, leg edema, lightheadedness, palpitations, rapid heart rate or syncope Respiratory/Chest Respiratory/Chest: Reports none; Denies change in mental status, dry cough, dyspnea, hemoptysis, shortness of breath at rest or shortness of breath with exertion Gastrointestinal Gastrointestinal: Reports none; Denies abdominal pain, change in stool character, diarrhea, hematemesis, hematochezia, melena, rectal bleeding or vomiting Genitourinary Genitourinary ED: Reports none; Denies abdominal discomfort, anuria, dysuria, genital pain or polyuria Musculoskeletal Musculoskeletal: Reports none; Denies arthralgias, back pain, difficulty walking, extremity pain, muscle weakness or myalgias Integumentary Reports none; Denies abscess or rash Neurologic Neurologic: Reports none; Denies abnormal gait, confusion, focal weakness, frequent falls, headache(s), loss of vision, numbness, paresthesias, radicular pain, vertigo or weakness Psychiatric Psychiatric: Reports systems reviewed and no addt'l complaints, except as documented and none; Denies behavioral changes, confusion, difficulty concentrating, hallucinations, suicidal ideation, tactile hallucinations or visual hallucinations Endocrine Endocrinology: Denies none, cold intolerance, excessive sweating, fatigue or heat intolerance Hematologic/Lymphatic Hematologic/Lymphatic : Reports none; Denies anemia, easy bleeding or easy bruising Allergic/Immunologic Allergic/Immunologic ED: Denies as per HPI, none, lip swelling, mouth swelling, throat swelling, tongue swelling or hives EXAM Physical Exam Const Vital Signs: 01/17/22 18:04 Temperature 97 F L Temperature Source Temporal Pulse Rate 119 H Respiratory Rate 18 Blood Pressure 141/120 H Blood Pressure Mean 127 Pulse Ox 95 Oxygen Delivery Method Room Air Positive well nourished and well developed General Appearance ED: well developed and NAD HEENT Reports TM's clear and moist mucous membranes HEENT Narrative: Dentition-patient has tenderness to palpation over left lower molar #19. No gingival erythema or abscess noted. No facial erythema or cellulitis. No significant adenopathy. Pharynx is nonerythematous. Uvula is midline. No trismus. normocephalic and atraumatic; Negative for trauma or tenderness Tympanic Membrane ED: Yes TM's clear Eyes PERRL and EOMs intact bilaterally General Eye ED: Negative for pale conjunctiva or scleral icterus Neck no lymphadenopathy, supple and no JVD General: (more content not included)... Normal [facility] No Panel Informationon 09-19 Radiology Study observation (narrative) [facility] XR Foot - right AP and Later al and obliqueon 09-19-2021 IMPRESSION: Unremarkable. Odd Bundle Worker: MARIAH Transcribe Date/Time: Sep 19 2021 1:59P Dictated by : CHIDI PAN MD This examination was interpreted and the report reviewed and electronically signed by: CHIDI PAN MD on Sep 19 2021 2:01PM [facility] DIVISION OF RADIOLOGY * * *Final Report* * * DATE OF EXAM: Sep 19 2021 1:57PM WOX [id number] - XR FOOT 3V AP/LAT/OBL RT / PROCEDURE REASON: Foot pain, right * * * * Physician Interpretation * * * * EXAMINATION: XR FOOT 3V AP/LAT/OBL RT HISTORY: Right plantar heel pain x 2 months after starting a new job but pain has significantly increased over the last 3 days. No direct injury. Foot pain, right. TECHNIQUE: XR FOOT 3V AP/LAT/OBL RT Laterality: RIGHT Number of different views (projections): 3 M: XB_1 COMPARISON: There are no prior relevant examinations available for comparison within the [facility] Imaging Archives. RESULT: Standing frontal radiographs of the bilateral feet with oblique and lateral weightbearing views of the right foot show no acute osseous, articular or soft tissue process. Joint spaces are preserved and there is no erosive change. No evidence for calcaneal spurs. DIVISION OF RADIOLOGY Provider, Cc Charmainein g Percival - 09/19/2021 * * *Final Report* * * DATE OF EXAM: Sep 19 2021 1:57PM WOX 5337 - XR FOOT 3V AP/LAT/OBL RT / PROCEDURE REASON: Foot pain, right * * * * Physician Interpretation * * * * EXAMINATION: XR FOOT 3V AP/LAT/OBL RT HISTORY: Right plantar heel pain x 2 months after starting a new job but pain has significantly increased over the last 3 days. No direct injury. Foot pain, right. TECHNIQUE: XR FOOT 3V AP/LAT/OBL RT Laterality: RIGHT Number of different views (projections): 3 M: XB_1 COMPARISON: There are no prior relevant examinations available for comparison within the [facility] Imaging Archives. RESULT: Standing frontal radiographs of the bilateral feet with oblique and lateral weightbearing views of the right foot show no acute osseous, articular or soft tissue process. Joint spaces are preserved and there is no erosive change. No evidence for calcaneal spurs. IMPRESSION IMPRESSION: Unremarkable. Odd Bundle Worker: MARIAH Transcribe Date/Time: Sep 19 2021 1:59P Dictated by : CHIDI PAN MD This examination was interpreted and the report reviewed and electronically signed by: CHIDI PAN MD on Sep 19 2021 2:01PM EST [facility] XR Foot - right AP and Later al and obliqueOrdered By: [facility] Provider on 09-19-2021 [facility] XR Tibia and Fibula - right AP and Lateralon 09-19-2021 IMPRESSION: Postsurgical changes without interval complication. Odd Bundle Worker: [facility] Transcribe Date/Time: Sep 19 2021 2:02P Dictated by : CHIDI PAN MD This examination was interpreted and the report reviewed and electronically signed by: CHIDI PAN MD on Sep 19 2021 2:03PM [facility] DIVISION OF RADIOLOGY * * *Final Report* * * DATE OF EXAM: Sep 19 2021 1:57PM WOX 5266 - XR TIBIA FIBULA 2V AP/LAT RT / PROCEDURE REASON: Foot pain, right * * * * Physician Interpretation * * * * EXAMINATION: XR TIBIA FIBULA 2V AP/LAT RT HISTORY: Hx of surgery in 1993, Posterior and lateral right lower leg pain increasing over the last 2 months after starting a new job. Foot pain, right . TECHNIQUE: XR TIBIA FIBULA 2V AP/LAT RT Laterality: RIGHT Number of different views (projections): 2 M: XB_1 COMPARISON: There are no prior relevant examinations available for comparison within the [facility] Imaging Archives. RESULT: AP and lateral radiographs of the right tibia and fibula demonstrate remote healed fractures involving the mid aspect of the right tibia and fibula. Long segment intramedullary aman with proximal interlocking screws present. Visualized surgical hardware is intact and there is no radiographic evidence for loosening or superimposed fracture. DIVISION OF RADIOLOGY Provider, [facility] - 09/19/2021 * * *Final Report* * * DATE OF EXAM: Sep 19 2021 1:57PM WOX 5266 - XR TIBIA FIBULA 2V AP/LAT RT / PROCEDURE REASON: Foot pain, right * * * * Physician Interpretation * * * * EXAMINATION: XR TIBIA FIBULA 2V AP/LAT RT HISTORY: Hx of surgery in 1993, Posterior and lateral right lower leg pain increasing over the last 2 months after starting a new job. Foot pain, right . TECHNIQUE: XR TIBIA FIBULA 2V AP/LAT RT Laterality: RIGHT Number of different views (projections): 2 M: XB_1 COMPARISON: There are no prior relevant examinations available for comparison within the [facility] Imaging Archives. RESULT: AP and lateral radiographs of the right tibia and fibula demonstrate remote healed fractures involving the mid aspect of the right tibia and fibula. Long segment intramedullary aman with proximal interlocking screws present. Visualized surgical hardware is intact and there is no radiographic evidence for loosening or superimposed fracture. IMPRESSION IMPRESSION: Postsurgical changes without interval complication. Odd Bundle Worker: PSCB Transcribe Date/Time: Sep 19 2021 2:02P Dictated by : CHIDI PAN MD This examination was interpreted and the report reviewed and electronically signed by: CHIDI PAN MD on Sep 19 2021 2:03PM [facility] CTA Non Coronaryon 7 CTA Non Coronary Patient Name: BOO SWEENEY CT Exam Date/Time 05/22/2017 15:25:33 EDT Exam CTA Aorta Ordering Physician LUIS ALBERTO SANZ MADELINE Chong Accession Number [id number] CPT4 Codes 45941 (CTA Non Coronary), Q9967 () Reason For Exam thoracic aneurysm Report Gated Thoracic Aorta CTA Indication: 46-year-old man with known dilated ascending aorta. Study performed to evaluate for interval change in the size and morphology of the thoracic aorta. Technique: Computed tomography of the chest was performed using a [employer] Aquilion One 320 detector scanner. Images were reconstructed and analyzed on an advanced post-processing 3D workstation. Contrast: 100 mL Total DLP: 545.60 mGy-cm Comparison: 03/12/2016 Study Quality: The images are of good quality. Extravascular Findings: The included portions of the chest wall, lungs, and mediastinum are unremarkable. Cardiac Chambers and Valves: The pericardium is unremarkable. The left and right ventricles are normal in size. The left and right atria are normal in size. The mitral valve is unremarkable by CT appearance. The aortic valve is trileaflet. Coronary Arteries: The coronaries have normal origins. There is a pattern of right coronary dominance. There is no evidence of coronary atherosclerosis. The present study was not optimized for evaluation of the coronary arteries. Aorta: All vascular measurements are performed using a centerline technique (perpendicular to the axis of blood flow). Description: There is no significant atheroma in the ascending aorta. There is mild atheroma in the arch and descending thoracic aorta. There is no evidence of aortic dissection or intramural hematoma. Sinuses of Valsalva: 3.3 cm Sinotubular junction: 3.0 cm Mid ascendin.2 cm Proximal Arch: 3.6 cm Distal Arch: 2.9 cm Proximal descendin.5 cm Mid descendin.3 cm At diaphragm: 2.1 cm CONCLUSIONS: 1. Dilated ascending thoracic aorta with maximal diameter of 4.2 cm at the mid ascending level as detailed above. Compared side by side to the 03/12/2016 study, this represents no significant change. 2. The descending thoracic aorta is normal in size. 3. Given patient's age and stability of measurements, consider another modality for surveillance such as echocardiography or noncontrast MRA. Report Dictated on Final Dictated: 05/23/2017 8:15 am Dictating Physician: MD. BRENNA, DEMAR PEREZ Signed Date and Time: 05/23/2017 8:29 am Signed by: MD. BRENNA, DEMAR PEREZ Transcribed Date and Time: 05/23/2017 8:15 Normal [facility] Vital Signs Date Time Vital Sign Value Performing Clinician Facility 01-21-2025 10:01-0400 Body mass index (BMI) [Ratio] 31.48 kg/m2 Jenaro Yadav MD Work Phone: [facility] 01-21-2025 10:01-0400 Body weight 107.5 kg Jenaro Yadav MD Work Phone: [facility] 01-21-2025 10:01-0400 Diastolic blood pressure 81 mm[Hg] Jenaro Ydaav MD Work Phone: [facility] 01-21-2025 10:01-0400 Heart rate 99 /min Jenaro Yadav MD Work Phone: [facility] 01-21-2025 10:01-0400 SaO2% (BldA) [Mass fraction] 97 % Jenaro Yadav MD Work Phone: [facility] 01-21-2025 10:01-0400 Systolic blood pressure 137 mm[Hg] Jenaro Yadav MD Work Phone: [facility] 10-31-2024 00:25-0500 Body temperature 98.06 [degF] JONES RIBEIRO MD [facility] 10-31-2024 00:25-0500 Body weight 113.4 kg JONES RIBEIRO MD [facility] 10-31-2024 00:25-0500 Diastolic Blood Pressure Non-Invasive 98 mm[Hg] JONES RIBEIRO MD [facility] 10-31-2024 00:25-0500 Heart rate 105 /min JONES RIBEIRO MD [facility] 10-31-2024 00:25-0500 Respiratory rate 18 /min JONES RIBEIRO MD [facility] 10-31-2024 00:25-0500 Systolic Blood Pressure Non-Invasive 162 mm[Hg] JONES RIBEIRO MD [facility] 05-06-2024 13:00-0400 Body height 184.8 cm Leida Podlogar [employer]ACH[employer] TIER.IMPACT HAMMER OPERATOR Work Phone: [facility] 05-06-2024 13:00-0400 Body mass index (BMI) [Ratio] 31.48 kg/m2 Leida Podlogar [employer] TI[employer].IMPACT HAMMER OPERATOR Work Phone: [facility] 05-06-2024 13:00-0400 Body weight 107.5 kg Leida Podlogar [employer] TIER.IMPACT HAMMER OPERATOR Work Phone: [facility] 05-06-2024 13:00-0400 Diastolic blood pressure 86 mm[Hg] Leida Podlogar [employer] TIER.IMPACT HAMMER OPERATOR Work Phone: [facility] 05-06-2024 13:00-0400 Heart rate 105 /min Leida Podlogar [employer] TI[employer].IMPACT HAMMER OPERATOR Work Phone: [facility] 05-06-2024 13:00-0400 Respiratory rate 18 /min Leida Podlogar [employer] TIER.IMPACT HAMMER OPERATOR Work Phone: [facility] 05-06-2024 13:00-0400 SaO2% (BldA) [Mass fraction] 93 % Leida Podlogar [employer] TI[employer].IMPACT HAMMER OPERATOR Work Phone: [facility] 05-06-2024 13:00-0400 Systolic blood pressure 112 mm[Hg] Leida Podlogar [employer] TI[employer].IMPACT HAMMER OPERATOR Work Phone: [facility] 01-19-2024 13:52-0400 Diastolic blood pressure 97 mm[Hg] THOMPSON HONEYCUTT MD [facility] 01-19-2024 13:52-0400 Heart rate 66 /min THOMPSON HONEYCUTT MD [facility] 01-19-2024 13:52-0400 Respiratory rate 16 /min THOMPSON HONEYCUTT MD [facility] 01-19-2024 13:52-0400 Systolic blood pressure 153 mm[Hg] THOMPSON HONEYCUTT MD [facility] 01-19-2024 12:50-0400 Diastolic Blood Pressure Non-Invasive 90 mm[Hg] THOMPSON HONEYCUTT MD [facility] 01-19-2024 12:50-0400 Respiratory rate 16 /min THOMPSON HONEYCUTT MD [facility] 01-19-2024 12:50-0400 Systolic Blood Pressure Non-Invasive 141 mm[Hg] THOMPSON HONEYCUTT MD [facility] 01-19-2024 11:09-0400 Body temperature 98.06 [degF] THOMPSON HONEYCUTT MD [facility] 01-19-2024 11:09-0400 Body weight 114.9 kg THOMPSON HONEYCUTT MD [facility] 01-19-2024 11:09-0400 Diastolic Blood Pressure Non-Invasive 93 mm[Hg] THOMPSON HONEYCUTT MD [facility] 01-19-2024 11:09-0400 Heart rate 99 /min THOMPSON HONEYCUTT MD [facility] 01-19-2024 11:09-0400 Respiratory rate 16 /min THOMPSON HONEYCUTT MD [facility] 01-19-2024 11:09-0400 Systolic Blood Pressure Non-Invasive 140 mm[Hg] THOMPSON HONEYCUTT MD [facility] 01-10-2024 15:34-0400 Body temperature 97.2 [degF] [facility] [employer].IMPACT HAMMER OPERATOR Work Phone: [facility] 01-10-2024 15:34-0400 Body weight 116.3 kg [facility] [employer].IMPACT HAMMER OPERATOR Work Phone: [facility] 01-10-2024 15:34-0400 Diastolic blood pressure 89 mm[Hg] [facility] [employer].IMPACT HAMMER OPERATOR Work Phone: [facility] 01-10-2024 15:34-0400 Heart rate 105 /min [facility] [employer] TI[employer].IMPACT HAMMER OPERATOR Work Phone: [facility] 01-10-2024 15:34-0400 Respiratory rate 20 /min [facility] [employer] TI[employer].IMPACT HAMMER OPERATOR Work Phone: [facility] 01-10-2024 15:34-0400 SaO2% (BldA) [Mass fraction] 97 % [facility] [employer] TI[employer].IMPACT HAMMER OPERATOR Work Phone: [facility] 01-10-2024 15:34-0400 Systolic blood pressure 139 mm[Hg] [facility] [employer] TI[employer].IMPACT HAMMER OPERATOR Work Phone: [facility] 01-17-2022 18:04-0400 Body height 193.04 cm [facility] Work Phone: 01-17-2022 18:04-0400 Body mass index (BMI) [Ratio] 28.5 kg/m2 [facility] Work Phone: 01-17-2022 18:04-0400 Body temperature 97 [degF] [facility] Work Phone: 01-17-2022 18:04-0400 Body weight 106.59 kg [facility] Work Phone: 01-17-2022 18:04-0400 Diastolic blood pressure 120 mm[Hg] [facility] Work Phone: 01-17-2022 18:04-0400 Heart rate 119 /min [facility] Work Phone: 01-17-2022 18:04-0400 Respiratory rate 18 /min [facility] Work Phone: 01-17-2022 18:04-0400 SaO2% (BldA) [Mass fraction] 95 % [facility] Work Phone: 01-17-2022 18:04-0400 Systolic blood pressure 141 mm[Hg] [facility] Work Phone: Encounters Encounter Date Encounter Type Care Provider Facility Start: 06-23-2025 End: 06-23-2025 ambulatory [facility] Facility:[facility] Start: 04-28-2025 End: 04-28-2025 Specialty Pharmacy Sis [facility] Comment on above: SPP Inflammatory Con ditions - Medication Refill (Dupixent) Start: 04-27-2025 End: 04-[facility] Start: 04-27-2025 End: 04-27-2025 [facility] Comment on above: SPP Inflammatory Con ditions - Follow-up (Dupixent); Insurance Authorization (PA submitted new insurance) Start: 03-23-2025 End: 03-23-2025 Specialty Pharmacy [facility] Comment on above: SPP Inflammatory Con ditions - Medication Refill (Dupixent) Start: 02-22-2025 End: 02-22-2025 Specialty Pharmacy S[facility] Comment on above: SPP Inflammatory Con ditions - Medication Refill (Dupixent ) Start: 01-22-2025 End: 01-22-2025 Specialty Pharmacy [facility] Comment on above: SPP Inflammatory Con ditions - Medication Refill (Dupixent) Start: 01-21-2025 End: 01-21-2025 ambulatory JENARO YADAV Facility:[facility] Start: 01-21-2025 End: 01-21-2025 Patient encounter procedure Jenaro Yadav MD Work Phone: Pain Management Comment on above: Sciatica, left side (Primary Dx); Acute back pain with sciatica, left; Plantar fasciitis of left foot; Health counseling; Myofascial pain Start: 12-24-2024 End: 12-24-2024 Specialty Pharmacy Sis Robledo [facility] Comment on above: SPP Inflammatory Con ditions - Medication Refill (Dupixent) Start: 12-23-2024 End: 12-23-2024 ambulatory Sisly Gomezley [facility] Start: 12-23-2024 End: 12-23-2024 Follow-up encounter Sis Sha [facility] Comment on above: SPP Inflammatory Con ditions - Follow-up (Dupixent); Insurance Authorization (Prior Auth Submitted) Start: 12-21-2024 End: 12-21-2024 ambulatory Lauryn Sky PA-C Work Phone: Dermatology Comment on above: Eczema, unspecified type (Primary Dx); Dermatitis Start: 12-21-2024 End: 12-21-2024 Telemedicine consultation with patient Lauryn Sky PA-C Work Phone: Dermatology Start: 12-11-2024 End: 12-11-2024 ambulatory LAURYN SKY Facility:[facility] Start: 11-25-2024 End: 11-25-2024 Refill Kathryn Obrien MD Work Phone: Dermatology Comment on above: Refill Request Start: 10-31-2024 End: 10-31-2024 Emergency department patient visit JONES RIBEIRO MD [facility] Start: 09-10-2024 End: 09-10-2024 Refill Kathryn Obrien MD Work Phone: Dermatology Comment on above: Refill Request SPP Inflammatory Con ditions - Medication Refill (Dupixent) Start: 09-10-2024 End: 09-10-2024 Refill Kathryn Obrien MD Work Phone: Dermatology Comment on above: Refill Request Start: 08-05-2024 End: 08-05-2024 Specialty Pharmacy Sis Robledo [facility] Comment on above: SPP Inflammatory Con ditions - Medication Refill (Dupixent) Start: 07-10-2024 End: 07-10-2024 [facility] Comment on above: SPP Inflammatory Con ditions - Medication Refill (Dupixent) Start: 06-02-2024 [facility] Comment on above: SPP Inflammatory Con ditions - Medication Refill (Dupixent) Start: 05-12-2024 [facility] Comment on above: SPP Inflammatory Con ditions - Medication Refill (Dupixent) Start: 05-06-2024 End: 05-06-2024 Patient encounter procedure Leida Whelan APRN.IMPACT HAMMER OPERATOR Work Phone: [facility] Comment on above: Near syncope (Primar y Dx); Screening for hyperlipidemia; Mild dilation of ascending aorta (HCC); Fatigue, unspecified type; Blurry vision Start: 04-06-2024 [facility] Comment on above: SPP Inflammatory Con ditions - Medication Refill (Dupixent) Start: 03-10-2024 Specialty Pharmacy [facility] Comment on above: SPP Inflammatory Con ditions - Medication Refill (Dupixent) Start: 02-07-2024 Specialty Pharmacy [facility] Comment on above: SPP Inflammatory Con ditions - Medication Refill (Dupixent) Start: 01-19-2024 End: 01-19-2024 Emergency department patient visit THOMPSON HONEYCUTT MD Facility:B Start: 01-19-2024 End: 01-19-2024 Emergency department patient visit THOMPSON HONEYCUTT MD [facility] Start: 01-13-2024 Specialty Pharmacy Sis Robledo [facility] Comment on above: SPP Inflammatory Con ditions - Medication Refill (Dupixent) Start: 01-10-2024 End: 01-10-2024 Office outpatient visit 15 minutes Rey Santillan APRN.IMPACT HAMMER OPERATOR Work Phone: [facility] Comment on above: Chest pain, unspecif ied type (Primary Dx) Start: 08-29-2023 Specialty Pharmacy Lea Wheat [facility] Comment on above: SPP Inflammatory Con ditions - Medication Refill (Dupixent - going from pens to syringe) Start: 08-08-2023 End: 08-08-2023 ambulatory Kathryn Girard MD Work Phone: Dermatology Comment on above: Eczema, unspecified type (Primary Dx); Tinea versicolor Start: 08-08-2023 End: 08-08-2023 Telemedicine consultation with patient Kathryn Girard MD Work Phone: [facility] Start: 05-31-2023 Specialty Pharmacy Lea Wheat [facility] Comment on above: SPP Inflammatory Con ditions - Medication Refill (Dupixent) Start: 04-29-2023 Specialty Pharmacy Lea Wheat [facility] Comment on above: SPP Inflammatory Con ditions - Medication Refill (Dupixent) Start: 03-25-2023 Specialty Pharmacy Lea Wheat [facility] Comment on above: SPP Inflammatory Con ditions - Medication Refill (Dupixent) Start: 02-22-2023 Specialty Pharmacy Lea Wheat [facility] Comment on above: SPP Inflammatory Con ditions - Medication Refill (Dupixent) Start: 01-23-2023 Specialty Pharmacy Lea Wheat [facility] Comment on above: SPP Inflammatory Con ditions - Medication Refill (Dupixent) Start: 12-24-2022 Specialty Pharmacy Lea Wheat [facility] Comment on above: SPP Inflammatory Con ditions - Medication Refill (Dupixent) Start: 12-21-2022 Refill Rayne casas MD Work Phone: Dermatology Comment on above: Refill Request Start: 11-12-2022 ambulatory Lea Wheat [facility] Comment on above: Opened In Error Start: 09-24-2022 Specialty Pharmacy Isauro Haider [facility] Comment on above: SPP Inflammatory Con ditions - Medication Refill (Dupixent) Start: 08-24-2022 Specialty Pharmacy Isauro Vitaly [facility] Comment on above: SPP Inflammatory Con ditions - Medication Refill (Dupixent) Start: 08-22-2022 Refill Rayne casas MD Work Phone: Dermatology Comment on above: Refill Request Start: 07-31-2022 Refill Rayne casas MD Work Phone: Dermatology Comment on above: Refill Request Start: 07-19-2022 Specialty Pharmacy Isauro [facility] Comment on above: SPP Inflammatory Con ditions - Medication Refill (Dupixent) Start: 06-19-2022 Specialty Pharmacy Isauro [facility] Comment on above: SPP Inflammatory Con ditions - Medication Refill (Dupixent) Start: 05-25-2022 Specialty Pharmacy Lea Wheat [facility] Comment on above: SPP Inflammatory Con ditions - Medication Refill (Dupixent) Start: 05-03-2022 [facility] Comment on above: SPP Inflammatory Con ditions - Medication Refill (Dupixent) Start: 03-13-2022 [facility] Comment on above: SPP Inflammatory Con ditions - Medication Refill (Dupixent ) Start: 02-09-2022 Specialty Pharmacy [facility]a [facility] Comment on above: SPP Inflammatory Con ditions - Medication Refill (Dupixent) Start: 01-17-2022 End: 01-17-2022 Emergency department patient visit [facility] Start: 01-09-2022 Specialty Pharmacy Lea Wheat [facility] Comment on above: SPP Inflammatory Con ditions - Medication Refill (Dupixent) Start: 01-04-2022 End: 01-04-2022 Patient encounter procedure Derrick Shankar Work Phone: Podiatry Comment on above: Plantar fasciitis of right foot (Primary Dx); Right foot pain Start: 09-19-2021 End: 09-19-2021 Subsequent hospital visit by physician [facility] Work Phone: Radiology Comment on above: Foot pain, right [M7 9.671] Start: 05-22-2017 Ambulatory MADELINE SANZ [facility] Procedures Date Procedure Procedure Detail Performing Clinician Start: 05-18-2024 Lipid 1996 panel - S cullen or Plasma Sis [facility] Start: 05-06-2024 Ecg routine ecg w/le ast 12 lds i&r only [facility] Provider Start: 09-19-2021 Radex foot complete minimum 3 views Iona Sb [employer] TIER.IMPACT HAMMER OPERATOR Work Phone: Start: 08-11-2020 Repair of right ingu inal hernia THOMPSON HONEYCUTT MD Start: 07-24-2016 Adult depression screening assessment Lea Wheat [facility] Open reduction of fracture with internal fixation THOMPSON HONEYCUTT MD Comment on above: RLE Repair of inguinal hernia WI STEVEN HONEYCUTT MD Comment on above: RIGHT-DR. PUGH Plan of Treatment Date Care Activity Detail Author Start: 05-18-2029 Lipid panel Lipid Screening [facility] Start: 05-18-2027 Diabetes Screening Diabetes Screenin g [facility] Start: 06-21-2025 Influenza vaccination C [facility] Start: 04-30-2025 End: 04-30-2025 Specialty Pharmacy 04/30/2025 10:15 AM EDT Specialty Pharmacy [facility] [employer] [address] [address] Pharmacist, [facility] [address] [place] [address] [place] [address] refill - Dupixent - PA exp 04/27/26 injects 1st and 15th of month- ND 05/04 [facility] Comment on above: refill - Dupixent - PA exp 04/27/26 injects 1st and 15th of month- ND 05/04 Start: 04-28-2025 End: 04-28-2025 Specialty Pharmacy 04/28/2025 10:15 AM EDT Specialty Pharmacy [facility] [employer] [address] [place] [address] Pharmacist, [facility] [address] [place] [address] [place] [address] refill - Dupixent - PA exp 12/21/25 injects 1st and 15th of month- 05/04 PA new insurance Sub 04/27 [facility] Comment on above: refill - Dupixent - PA exp 12/21/25 injects 1st and 15th of month- ND 05/04 PA new insurance Sub 7/8 Start: 04-26-2025 End: 04-26-2025 Specialty Pharmacy 04/26/2025 7:00 AM EDT Specialty Pharmacy [facility] [address] [place] [id number] Pharmacist, [facility] [address] [place] [id number] refill - Dupixent - PA exp 12/21/25 injects 1st and 15th of month- 05/04 [facility] Comment on above: refill - Dupixent - PA exp 12/21/25 injects 1st and 15th of month- 05/04 Start: 03-23-2025 End: 03-23-2025 Specialty Pharmacy [facility] Comment on above: refill - Dupixent - PA exp 12/21/25 injects 1st and 15th of month- 04/04 est care Start: 02-22-2025 End: 02-22-2025 Specialty Pharmacy 02/22/2025 10:00 AM EDT Specialty Pharmacy [facility] [address] [place] [id number] Pharmacist, [facility] [address] [place] [id number] refill - Dupixent - PA exp 12/21/25 injects 1st and 15th of month- [facility] Comment on above: refill - Dupixent - PA exp 12/21/25 injects 1st and 15th of month- Start: 01-22-2025 End: 01-22-2025 Specialty Pharmacy 01/22/2025 10:00 AM EDT Specialty Pharmacy [facility] [address] [place] [phone] Pharmacist, [facility] [address] [place] [address] [place] [address] refill - Dupixent - PA exp 12/21/25 injects 1st and 15th of month- [facility] Comment on above: refill - Dupixent - PA exp 12/21/25 injects 1st and 15th of month- Start: 12-28-2024 End: 12-28-2024 Specialty Pharmacy 12/28/2024 10:15 AM EDT Specialty Pharmacy [facility] [address] [place] [phone] Pharmacist, [facility] [address] [place] [address] [place] [address] refill - Dupixent - PA exp 12/21/25 injects 1st and 15th of month-LVM 12/24 [facility] Comment on above: refill - Dupixent - PA exp 12/21/25 injects 1st and 15th of month-LVM 3 Start: 12-24-2024 End: 12-24-2024 Specialty Pharmacy 12/24/2024 10:15 AM EST [facility]ty [facility]acy [facility] [address] [place] [phone] Pharmacist, [facility] [address] [place] [address] [place] [address] refill - Dupixent - PA exp 08/13 injects 1st and 15th of month - new rx sent over will need new PA- submitted 12/23 [facility] Comment on above: refill - Dupixent - PA exp 08/13 injects 1st and 15th of month - new rx sent over will need new PA- submitted 12/23 Start: 11-26-2024 End: 11-26-2024 Specialty Pharmacy 11/26/2024 10:15 AM EST [facility]ty [facility]acy [facility] [address] [place] [phone] Pharmacist, [facility] [address] [place] [address] [place] [address] refill - Dupixent - PA exp 08/13 injects 1st and 15th of month - - will schedule appt -reminded him 10/23 - 12/05-refill req 11/25 [facility] Comment on above: refill - Dupixent - PA exp 08/13 injects 1st and 15th of month - - will schedule appt -reminded him 10/23 - 12/05-refill req 11/25 Start: 10-23-2024 End: 10-23-2024 Specialty Pharmacy 10/23/2024 10:00 AM EST [facility]ty [facility]acy [facility] [address] [place] [phone] Pharmacist, [facility] [address] [place] [address] [place] [address] refill - Dupixent - PA exp 08/13 injects 1st and 15th of month - - will schedule appt [facility] Comment on above: refill - Dupixent - PA exp 08/13 injects 1st and 15th of month - - will schedule appt Start: 09-10-2024 End: 09-10-2024 Specialty Pharmacy 09/10/2024 10:00 AM EST [facility] [address] [place] [phone] Pharmacist, [facility] [address] [place] [address] [place] [address] refill - Dupixent - PA exp 08/13 injects 1st and 15th of month - [facility] Comment on above: refill - Dupixent - PA exp 08/13 injects 1st and 15th of month - Start: 08-18-2024 End: 08-18-2024 Patient encounter procedure 08/18/2024 10:20 AM EDT Office Visit Family Medicine [place] [address] [place], [place] [id number] PodlogLeida hartmann APRN.IMPACT HAMMER OPERATOR [address] [place], [place] [id number] establish care Family Medicine [place] Comment on above: establish care Start: 08-05-2024 End: 08-05-2024 Specialty Pharmacy 08/05/2024 10:00 AM EDT Specialty Pharmacy [facility] [address] [place] [address] Pharmacist, [facility] [address] [place] [address] [place] [address] refill - Dupixent - PA exp 08/13 injects 1st and 15th of month - ND 08/19 - PA renewal needed [facility] Comment on above: refill - Dupixent - PA exp 08/13 injects 1st and 15th of month - ND 08/19 - PA renewal needed Start: 07-10-2024 End: 07-10-2024 Specialty Pharmacy 07/10/2024 10:00 AM EDT Specialty Pharmacy [facility] [address] [place] [address] Pharmacist, [facility] [address] [place] [address] [place] [address] refill - Dupixent - PA exp 08/13 injects 1st and 15th of month - ND 07/21 [facility] Comment on above: refill - Dupixent - PA exp 08/13 injects 1st and 15th of month - 07/21 Start: 06-21-2024 Covid-19 Vaccine ( season) Covid-19 Vaccine ( season) [facility] Start: 06-21-2024 Covid-19 Vaccine ( season) Covid-19 Vaccine ( season) [facility] Start: 06-21-2024 Influenza vaccination C [facility] Start: 06-09-2024 End: 06-09-2024 Patient encounter procedure 06/09/2024 11:00 AM EDT Office Visit Vasculary Surgery [address] [place] [address] Episodic lightheadedness [R42] Vasculary Surgery Comment on above: Episodic lightheaded ness [R42] Start: 06-04-2024 End: 06-04-2024 Patient encounter procedure 06/04/2024 9:40 AM EDT Office Visit Cardiology [address] [place] [address] rescheduled from 05/21 Cardiology Comment on above: rescheduled from Start: 06-02-2024 End: 06-02-2024 Specialty Pharmacy 06/02/2024 10:00 AM EDT Specialty Pharmacy [facility] [address] [id number] [place] [address] Pharmacist, [facility] 2 [facility] [place] [address] refill - Dupixent - PA exp 08/13 injects 1st and 15th of month - 06/12 [facility] Comment on above: refill - Dupixent - PA exp 08/13 injects and 15th of month - 06/12 Start: 05-21-2024 End: 05-21-2024 Patient encounter procedure 05/21/2024 12:40 PM EDT Office Visit Family Medicine [place] [address] [facility] [place] [address] Madhav Canales MD [address] [facility] [place] [address] Establish Care Family [facility] [place] Comment on above: Establish Care Start: 05-18-2024 End: 05-18-2024 Patient encounter procedure 05/18/2024 8:00 AM EDT Office Visit Cardiology [address] [place] [address] Mild dilation of ascending aorta (HCC) [I77.810] Cardiology Comment on above: Mild dilation of asc ending aorta (HCC) [I77.810] Start: 05-12-2024 End: 05-12-2024 Specialty Pharmacy 05/12/2024 10:00 AM EDT Specialty Pharmacy [facility] [address] [place] [address] [address] Pharmacist, [facility] [address] [place] [address] [place] [address] refill - Dupixent - PA exp 08/13 injects 1st and 15th of month [facility] Comment on above: refill - Dupixent - PA exp 08/13 injects 1st and 15th of month Start: 05-06-2024 End: 08-05-2024 CBC W Auto Differential panel - Blood COMPLETE BLOOD COUNT AND DIFFERENTIAL Lab Routine Fatigue, unspecified type Near syncope Blurry vision Expected: 05/06/2024, Expires: 08/05/2024 [facility] Comment on above: Expected: 05/06/2024 , Expires: 08/05/2024 Start: 05-06-2024 End: 08-05-2024 Comprehensive metabolic 2000 panel - Serum or Plasma COMPREHENSIVE METABOLIC PANEL Lab Routine Fatigue, unspecified type Near syncope Blurry vision Expected: 05/06/2024, Expires: 08/05/2024 [facility] Comment on above: Expected: 05/06/2024 , Expires: 08/05/2024 Start: 05-06-2024 End: 08-05-2024 Lipid 1996 panel - Serum or Plasma LIPID PANEL BASIC Lab Routine Screening for hyperlipidemia Expected: 05/06/2024, Expires: 08/05/2024 [facility] Comment on above: Expected: 05/06/2024 , Expires: 08/05/2024 Start: 05-06-2024 End: 08-05-2024 Thyrotropin [Units/volume] in Serum or Plasma THYROID STIMULATING HORMONE Lab Routine Fatigue, unspecified type Expected: 05/06/2024, Expires: 08/05/2024 [facility] Comment on above: Expected: 05/06/2024 , Expires: 08/05/2024 Start: 03-13-2024 End: 03-13-2024 Specialty Pharmacy 03/13/2024 10:00 AM EDT Specialty Pharmacy [id number] [place] [address] Pharmacist, [facility] [address] [place] [address] [place] [address] refill - Dupixent - PA exp 08/13 - LVM 03/10 [facility] Comment on above: refill - Dupixent - PA exp 08/13 - LVM 03/10 Start: 10-21-2023 Behavioral Health Screening Behavioral Health Screening [facility] Start: 10-21-2023 Depression Assessment Depression Ass [facility] Start: 06-21-2023 Covid-19 Vaccine () Covid-19 Vaccine () [facility] Start: 06-21-2023 Influenza vaccination C [facility] Start: 10-21-2022 DEPRESSION ASSESSMENT [facility] Start: 06-21-2022 Influenza vaccination C [facility] Start: 10-21-2021 DEPRESSION ASSESSMENT DEPRESSION ASS [facility] Start: 2021 Influenza vaccination LUNG CANCER SC REENING [facility] Start: 2021 Screening for malign ant neoplasm of lung Lung Cancer Screening [facility] Start: 2021 SHINGRIX VACCINE (1 of 2) PRADHAN GRIX VACCINE (1 of 2) [facility] Start: 06-21-2021 Influenza vaccination INFLUENZA (#1) [facility] Start: 07-24-2019 DIABETES SCREEN DIABETES SCREEN [facility] Start: 07-24-2019 Diabetes Screening Diabetes Screenin g [facility] Start: 07-24-2017 Adult depression screening assessment DEPRESSION SCREENING [facility] Start: 2016 COLOGUARD (FIT-DNA) COLOGUARD (FIT-D NA) [facility] Start: 2016 Colonoscopy COLONOSCOPY [facility] Start: 2016 COLORECTAL CANCER SCREENING COLORECTAL CANCER SCREENING [facility] Start: [address] COLONOGRAPHY [facility] Start: 2016 FECAL OCCULT BLOOD FECAL OCCULT BLOO D [facility] Start: 2016 Screening for malign ant neoplasm of colon [facility] Start: 2016 SIGMOIDOSCOPY SIGMOIDOSCOPY [facility] Start: 2006 Lipid 1996 panel - S cullen or Plasma Lipid Screening [facility] Start: 2006 Lipid panel Lipid Screening [facility] Start: 2006 LIPID SCREEN LIPID SCREEN [facility] Start: 1990 Hepatitis B Vaccine (1 of 3 - 19+ 3-dose series) Hepatitis B Vaccine (1 of 3 - 19+ 3-dose series) [facility] Start: 1990 ONE PNEUMOVAX PRIOR TO AGE 65 ONE PNEUMOVAX PRIOR TO AGE 65 [facility] Start: 1990 Pneumococcal Vaccine : 50+ (1 of 2 - PCV) Pneumococcal Vaccine: 50+ (1 of 2 - PCV) [facility] Start: 1990 Urine microalbumin profile [facility] Start: 1989 Depression Screening Depression Scre ening [facility] Start: 1989 HEPATITIS C SCREENING HEPATITIS C [facility] Start: 1989 Hepatitis C screening Hepatitis C [facility] Start: 1989 HIV SCREENING HIV SCREENING [facility] Start: 1989 HIV screening HIV Screening [facility] Start: 1977 PNEUMOCOCCAL (1 - PCV) PNEUMOCOCCAL (1 - PCV) [facility] Start: 1977 Pneumococcal vaccination [facility] Start: 1976 COVID-19 VACCINE (#1) COVID-19 VACCI NE (#1) [facility] Start: 1976 COVID-19 VACCINE (1) COVID-19 VACCIN E (1) [facility] Start: 03-08-1972 COVID-19 VACCINE (#1) COVID-19 VACCI NE (#1) [facility] Start: 1971 HEPATITIS B (1 of 3 - 3-dose series) HEPATITIS B (1 of 3 - 3-dose series) [facility] Start: 1971 Hepatitis B Vaccine (1 of 3 - 3-dose series) Hepatitis B Vaccine (1 of 3 - 3-dose series) [facility] ECG COMPLETE [facility] Work Phone: Comment on above: Ordered: 05/06/2024 End: 05-06-2025 Echocardiography ECHO Cardiology Routine Mild dilation of ascending aorta (HCC) 1 Occurrences starting 05/06/2024 until 05/06/2025 [facility] Comment on above: 1 Occurrences starti ng 05/06/2024 until 05/06/2025 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 Work Phone: Patient referral [facility] Work Phone: End: 05-06-2025 US Carotid arteries - bilateral US CAROTID ARTERIES [facility] Vascular Lab Routine Near syncope Blurry vision 1 Occurrences starting 05/06/2024 until 05/06/2025 [facility] Comment on above: 1 Occurrences starti ng 05/06/2024 until 05/06/2025 End: 02-20-2026 XR Lumbar spine Views W flexion and W extension XR LUMBAR MOTION 4V AP/LAT/ FLEX/EXT Radiology Routine Acute back pain with sciatica, left 1 Occurrences starting 01/21/2025 until 02/20/2026 [place] Work Phone: Comment on above: 1 Occurrences starti ng 01/21/2025 until 02/20/2026 [facility] Payers Date Payer Category Payer Unknown [id number] 2020 Unknown 2013 Medicaid [employer] [facility] [employer] [id number] 2013-Present [phone] [address] [place] [address] Medicaid [id number] 2013 Medicaid [id number] 1971 Unknown [id number] 1971 Unknown [id number] Self-pay [employer] INSURANCE [id number] Unknown SEL[employer] PAY INSURANCE [id number] Social History Date Type Detail Facility Start: 02-25-2013 End: 01-21-2025 Tobacco smoking status NHIS Smokes tobacco daily [facility] Work Phone: History of tobacco use Cigarette Smoker C [facility] Work Phone: Start: 02-25-2013 End: 02-22-2023 Cigarettes smoked current (pack per day) - Reported 1 [facility] Start: 02-25-2013 End: 01-21-2025 Tobacco use and exposure Smokeless tobacco non-user [facility] Work Phone: Start: 01-04-2022 End: 01-21-2025 Alcohol intake Current drinker of alcohol (finding) [facility] Start: 1970 Sex Assigned At Male [facility] Start: 08-20-2021 End: 01-04-2022 Exposure to SARS-CoV-2 (event) Not sure [facility] Start: 01-17-2022 Tobacco smoking status NHIS Unknown if ever smoked [facility] Work Phone: Start: 11-29-[address] [facility] Work Phone: Start: 11-29-[address] [facility] Work Phone: Start: 11-29-[address] [facility] Work Phone: Start: 02-23-2022 End: 02-22-2023 Tobacco use panel [facility] National Score (1-10 0), lower number is lower risk 51 [facility] Start: 12-23-2020 Gender identity Identifies as male gender (finding) [facility] Start: 12-23-2020 Sexual orientation Heterosexual (finding) [facility] Start: 05-25-2019 Tobacco smoking status Heavy tobacco smoker (finding) [facility] Sex Assigned At [facility] Has the [employer] s, oil, or water company threatened to shut off services in your home in past 12Mo Yes [facility] Do you belong to any clubs or organizations such as mormonism groups, unions, fraternal or athletic groups, or school groups? No [facility] Are you now , , , , never or living with a partner? [facility] How often to you hav e a drink containing alcohol? Never [facility] Do you feel stress - tense, restless, nervous, or anxious, or unable to sleep at night because your mind is troubled all the time - these days [OSQ] Not at all [facility] (I/We) worried wheth er (my/our) food would run out before (I/we) got money to buy more. Never true [facility] Start: 10-22-2016 Sex Male (finding) [facility] Functional Status Date Assessment Result Facility 10-31-2024 Functional Status ID band on, Allergy Band on, Call device within reach, Bed in low position, Wheels locked, Phone within reach, personal items within reach, Safety level maintained [facility] 01-19-2024 Functional Status Independent [facility] 01-19-2024 Functional Status Standard Safet y ID band on, Allergy Band on, Call device within reach, Bed in low position, Wheels locked [facility] Mental Status Date Assessment Result Facility 10-31-2024 Mental Status Oriented x 4 [facility] 01-19-2024 Mental Status Orientation Oriented x 4 [facility] 01-19-2024 Mental Status [facility] Clinical Notes 09-19-2021 to 05-25-2025 Monique Lopez - 04/27/2025 7:22 AM Monique Plascencia - 04/27/2025 7:22 AM Yoko Colón - 03/23/2025 7:08 AM Monique Plascencia - 02/22/2025 9:11 AM Monique Plascencia - 01/22/2025 9:50 AM EDT Note Date & Type Note Facility 05-25-2025 Note HNO ID: [id number] Author: SIS ROBLEDO RPh Service: ? Author Type: ? Type: Progress Notes Filed: 06/23/2025 09:06 Note Text: Attestation signed by Sis Robledo RPh at 06/23/2025 9:06 AM Sis Robledo PharmD Clinical Pharmacist, [employer] [facility] Specialty Pharmacy ; Pool: P [facility] Pool #: [id number] Discontinuation Assessment completed for the medication Dupixent . Patient no longer requires [facility] Patient Management Program Services at this time for this medication. Multiple attempts made for pt to reach out to Dupixent copay card to reactivate pending account unable to reach Monique Lopez [facility] Specialty Pharmacy, Inflammatory/Allergy P:[phone] [facility] 04-28-2025 Note HNO ID: [id number] Author: ?, ?, ? Service: ? Author Type: ? Type: Progress Notes Filed: 05/03/2025 15:35 Note Text: [facility] Specialty Refill Assessment Medication(s): Dupixent Patient's current medication list and adherence status to current therapy were reviewed by Specialty Pharmacy clinical pharmacist to identify any new drug interactions or non-compliance to therapy. Therapy continues to be appropriate for disease, patient response, and medical condition. Verification of therapeutic benefit and effectiveness with current therapy was completed. Adverse events, barriers in adherence, and side effects were assessed and addressed if applicable. Will proceed with refill with no changes in therapy - patient progressing towards achieving therapeutic goals based on medication-specific laboratory parameters, disease state markers and outcomes. Office/provider notes have been reviewed prior to dispensing the medication. [facility] Assessment Patient confirmed: Yes Med/dose confirmed: Yes Supplies needed: No supplies needed Missed doses: No Estimated days supply on hand: 0 Next cycle/dose due: 05/05/25 Copay amount: 0 Payment confirmed: Yes Delivery method: FedEx Signature required: No Delivery address: [address] [place] [address] Delivery date: 05/05/25 Questions or concerns for the pharmacist?: No Did you have any side effects believed to be related to this medication, that resulted in hospitalization?: No Current Outpatient Medications on File Prior to Visit Medication Sig methylPREDNISolone (MEDROL, KRISTINA,) 4 mg Dose-Pack As Instructed per package dupilumab 300 mg/2 mL subcutaneous syringe (DUPIXENT SYRINGE) Inject 1 syringe (300 mg) subcutaneously every 2 weeks triamcinolone acetonide (KENALOG) 0.1 % cream Apply to affected areas twice daily Saturday-Saturday as needed. Avoid face, groin, and armpits ketoconazole (NIZORAL) 2 % shampoo Use as a body wash once daily for 4 weeks. After 4 weeks, decrease use to once per week as maintenance (Patient not taking: Reported on 12/21/2024) No current facility-administered medications on file prior to visit. [facility] CLINICAL ASSESSMENT - INFLAMMATORY CONDITIONS V6: Assessment to use: Refill Date of influenza vaccination reminder: 07/13/2024 Date of most recent vaccination assessment: 07/13/2024 Treatment Plan Information: Dupxient 300mg/2mL syringe Inject 1 syringe (300 mg) subcutaneously every 2 weeks L30.9 Dermatitis Est. Tx Plan Start Date: No information available Estimated Start Date Info: No information available Est. Estimated Treatment Duration: Until loss of efficacy and/or no longer tolerated. Monique Lopez CPhT Specialty Pharmacy, Inflammatory/Allergy P:[phone] [facility] 04-27-2025 History of Presen t illness Narrative [facility] Pharmacy received prescription(s) for Dupixent from Lauryn Sky PA-C. Benefits investigation was conducted, indicating that a prior authorization is required by patient's NEW insurance plan with [employer]. Encounter will be updated once prior authorization has been submitted by [facility]. Monique Lopez [facility] Specialty Pharmacy, Inflammatory/Allergy P:[phone] Dupixent PA was initiated and pending review. Plan Name: [employer] / [employer] (new insurance) Plan Agent/Masters: [id number] Timeline: URGENT Monique Lopez [facility] Specialty Pharmacy, Inflammatory/Allergy P:[phone] documented in this encounter [facility] 04-27-2025 Note HNO ID: [id number] Author: ?, ?, ? Service: ? Author Type: ? Type: Progress Notes Filed: 04/27/2025 17:40 Note Text: Dupixent PA was approved with details listed below. Plan Name: [employer]/ [employer] PA reference number: [id number] Approval Dates: 04/27/25-04/27/26 Prescriptions will now be processed through [facility] for determination of next steps. Monique Lopez [facility] Pharmacy, Inflammatory/Allergy P:[phone] [facility] 04-27-2025 Note HNO ID: [id number] Author: ?, ?, ? Service: ? Author Type: ? Type: Progress Notes Filed: 04/27/2025 07:43 Note Text: Dupixent PA was initiated and pending review. Plan Name: [employer] / [employer] (new insurance) Plan Agent/Masters: [id number] Timeline: URGENT Monique Lopez [facility] Special[facility] Pharmacy, Inflammatory/Allergy P:[phone] [facility] 04-27-2025 Note HNO ID: [id number] Author: ?, ?, ? Service: ? Author Type: ? Type: Progress Notes Filed: 04/27/2025 07:25 Note Text: [facility] received prescription(s) for Dupixent from Lauryn Sky PA-C. Benefits investigation was conducted, indicating that a prior authorization is required by patient's NEW insurance plan with [employer]. Encounter will be updated once prior authorization has been submitted by [facility]. Monique Lopez [facility] Specialty Pharmacy, Inflammatory/Allergy P:[phone] [facility] 03-23-2025 History of Presen t illness Narrative [facility] Refill Assessment Medication(s): Dupixent Patient's current medication list and adherence status to current therapy were reviewed by Specialty Pharmacy clinical pharmacist to identify any new drug interactions or non-compliance to therapy. Therapy continues to be appropriate for disease, patient response, and medical condition. Verification of therapeutic benefit and effectiveness with current therapy was completed. Adverse events, barriers in adherence, and side effects were assessed and addressed if applicable. Will proceed with refill with no changes in therapy - patient progressing towards achieving therapeutic goals based on medication-specific laboratory parameters, disease state markers and outcomes. Office/provider notes have been reviewed prior to dispensing the medication. [facility] Assessment Patient confirmed: Yes Med/dose confirmed: Yes Supplies needed: No supplies needed Missed doses: No Estimated days supply on hand: 0 Next cycle/dose due: 04/04/25 Copay amount: 0 Delivery method: FedEx Signature required: Waived on patient request Delivery address: [address] [place] [id number] Delivery date: 03/26/25 Questions or concerns for the pharmacist?: No Did you have any side effects believed to be related to this medication, that resulted in hospitalization?: No Current Outpatient Medications on File Prior to Visit Medication Sig methylPREDNISolone (MEDROL, KRISTINA,) 4 mg Dose-Pack As Instructed per package acetaminophen (TYLENOL 8 HOUR) 650 mg CR tablet Take 1 tablet by mouth every 8 hours as needed for pain. dupilumab 300 mg/2 mL subcutaneous syringe (DUPIXENT SYRINGE) Inject 1 syringe (300 mg) subcutaneously every 2 weeks triamcinolone acetonide (KENALOG) 0.1 % cream Apply to affected areas twice daily Saturday-Saturday as needed. Avoid face, groin, and armpits ketoconazole (NIZORAL) 2 % shampoo Use as a body wash once daily for 4 weeks. After 4 weeks, decrease use to once per week as maintenance (Patient not taking: Reported on 12/21/2024) No current facility-administered medications on file prior to visit. [facility] SPECIALTY CLINICAL ASSESSMENT - INFLAMMATORY CONDITIONS V6: Assessment to use: Refill Date of influenza vaccination reminder: 07/13/2024 Date of most recent vaccination assessment: 07/13/2024 Treatment Plan Information: Dupxient 300mg/2mL syringe Inject 1 syringe (300 mg) subcutaneously every 2 weeks L30.9 Dermatitis Est. Tx Plan Start Date: No information available Estimated Start Date Info: No information available Est. Estimated Treatment Duration: Until loss of efficacy and/or no longer tolerated. Yoko Cuellar documented in this encounter [facility] 03-23-2025 Note HNO ID: [id number] Author: ?, ?, ? Service: ? Author Type: ? Type: Progress Notes Filed: 03/23/2025 09:39 Note Text: [facility] Refill Assessment Medication(s): Dupixent Patient's current medication list and adherence status to current therapy were reviewed by Specialty Pharmacy clinical pharmacist to identify any new drug interactions or non-compliance to therapy. Therapy continues to be appropriate for disease, patient response, and medical condition. Verification of therapeutic benefit and effectiveness with current therapy was completed. Adverse events, barriers in adherence, and side effects were assessed and addressed if applicable. Will proceed with refill with no changes in therapy - patient progressing towards achieving therapeutic goals based on medication-specific laboratory parameters, disease state markers and outcomes. Office/provider notes have been reviewed prior to dispensing the medication. [facility] Assessment Patient confirmed: Yes Med/dose confirmed: Yes Supplies needed: No supplies needed Missed doses: No Estimated days supply on hand: 0 Next cycle/dose due: 04/04/25 Copay amount: 0 Delivery method: FedEx Signature required: Waived on patient request Delivery address: formerly [facility] [place] [address] Delivery date: 03/26/25 Questions or concerns for the pharmacist?: No Did you have any side effects believed to be related to this medication, that resulted in hospitalization?: No Current Outpatient Medications on File Prior to Visit Medication Sig methylPREDNISolone (MEDROL, KRISTINA,) 4 mg Dose-Pack As Instructed per package acetaminophen (TYLENOL 8 HOUR) 650 mg CR tablet Take 1 tablet by mouth every 8 hours as needed for pain. dupilumab 300 mg/2 mL subcutaneous syringe (DUPIXENT SYRINGE) Inject 1 syringe (300 mg) subcutaneously every 2 weeks triamcinolone acetonide (KENALOG) 0.1 % cream Apply to affected areas twice daily Saturday-Saturday as needed. Avoid face, groin, and armpits ketoconazole (NIZORAL) 2 % shampoo Use as a body wash once daily for 4 weeks. After 4 weeks, decrease use to once per week as maintenance (Patient not taking: Reported on 12/21/2024) No current facility-administered medications on file prior to visit. [facility] SPECIALTY CLINICAL ASSESSMENT - INFLAMMATORY CONDITIONS V6: Assessment to use: Refill Date of influenza vaccination reminder: 07/13/2024 Date of most recent vaccination assessment: 07/13/2024 Treatment Plan Information: Dupxient 300mg/2mL syringe Inject 1 syringe (300 mg) subcutaneously every 2 weeks L30.9 Dermatitis Est. Tx Plan Start Date: No information available Estimated Start Date Info: No information available Est. Estimated Treatment Duration: Until loss of efficacy and/or no longer tolerated. Yoko Cuellar [facility] 02-22-2025 History of Presen t illness Narrative [facility] Refill Assessment Medication(s): Dupixent Patient's current medication list and adherence status to current therapy were reviewed by Specialty Pharmacy clinical pharmacist to identify any new drug interactions or non-compliance to therapy. Therapy continues to be appropriate for disease, patient response, and medical condition. Verification of therapeutic benefit and effectiveness with current therapy was completed. Adverse events, barriers in adherence, and side effects were assessed and addressed if applicable. Will proceed with refill with no changes in therapy - patient progressing towards achieving therapeutic goals based on medication-specific laboratory parameters, disease state markers and outcomes. Office/provider notes have been reviewed prior to dispensing the medication. [facility] Assessment Patient confirmed: Yes Med/dose confirmed: Yes Supplies needed: No supplies needed Missed doses: No Estimated days supply on hand: 0 Next cycle/dose due: 03/04/25 Copay amount: 0 Payment confirmed: Yes Delivery method: FedEx Signature required: Waived on patient request Delivery address: [address] [place], [place] [address]on [facility] [address] Delivery date: 02/24/25 Questions or concerns for the pharmacist?: No Did you have any side effects believed to be related to this medication, that resulted in hospitalization?: No Current Outpatient Medications on File Prior to Visit Medication Sig diclofenac, EC, (VOLTAREN) 75 mg EC tablet Take 1 tablet by mouth two times a day. methylPREDNISolone (MEDROL, KRISTINA,) 4 mg Dose-Pack As Instructed per package acetaminophen (TYLENOL 8 HOUR) 650 mg CR tablet Take 1 tablet by mouth every 8 hours as needed for pain. cyclobenzaprine (FLEXERIL) 10 mg tablet Take 1 tablet by mouth three times a day as needed for muscle spasm or pain. dupilumab 300 mg/2 mL subcutaneous syringe (DUPIXENT SYRINGE) Inject 1 syringe (300 mg) subcutaneously every 2 weeks triamcinolone acetonide (KENALOG) 0.1 % cream Apply to affected areas twice daily Saturday-Saturday as needed. Avoid face, groin, and armpits ketoconazole (NIZORAL) 2 % shampoo Use as a body wash once daily for 4 weeks. After 4 weeks, decrease use to once per week as maintenance (Patient not taking: Reported on 12/21/2024) No current facility-administered medications on file prior to visit. [facility] SPECIALTY CLINICAL ASSESSMENT - INFLAMMATORY CONDITIONS V6: Assessment to use: Refill Date of influenza vaccination reminder: 07/13/2024 Date of most recent vaccination assessment: 07/13/2024 Treatment Plan Information: Dupxient 300mg/2mL syringe Inject 1 syringe (300 mg) subcutaneously every 2 weeks L30.9 Dermatitis Est. Tx Plan Start Date: No information available Estimated Start Date Info: No information available Est. Estimated Treatment Duration: Until loss of efficacy and/or no longer tolerated. Monique Lopez CPhT Specialty Pharmacy, Inflammatory/Allergy [phone] documented in this encounter [facility] 02-22-2025 Note HNO ID: [id number] Author: ?, ?, ? Service: ? Author Type: ? Type: Progress Notes Filed: 02/22/2025 09:16 Note Text: [facility] Refill Assessment Medication(s): Dupixent Patient's current medication list and adherence status to current therapy were reviewed by Specialty Pharmacy clinical pharmacist to identify any new drug interactions or non-compliance to therapy. Therapy continues to be appropriate for disease, patient response, and medical condition. Verification of therapeutic benefit and effectiveness with current therapy was completed. Adverse events, barriers in adherence, and side effects were assessed and addressed if applicable. Will proceed with refill with no changes in therapy - patient progressing towards achieving therapeutic goals based on medication-specific laboratory parameters, disease state markers and outcomes. Office/provider notes have been reviewed prior to dispensing the medication. [facility] Assessment Patient confirmed: Yes Med/dose confirmed: Yes Supplies needed: No supplies needed Missed doses: No Estimated days supply on hand: 0 Next cycle/dose due: 03/04/25 Copay amount: 0 Payment confirmed: Yes Delivery method: FedEx Signature required: Waived on patient request Delivery address: [address] [place] [id number] Delivery date: 02/24/25 Questions or concerns for the pharmacist?: No Did you have any side effects believed to be related to this medication, that resulted in hospitalization?: No Current Outpatient Medications on File Prior to Visit Medication Sig diclofenac, EC, (VOLTAREN) 75 mg EC tablet Take 1 tablet by mouth two times a day. methylPREDNISolone (MEDROL, KRISTINA,) 4 mg Dose-Pack As Instructed per package acetaminophen (TYLENOL 8 HOUR) 650 mg CR tablet Take 1 tablet by mouth every 8 hours as needed for pain. cyclobenzaprine (FLEXERIL) 10 mg tablet Take 1 tablet by mouth three times a day as needed for muscle spasm or pain. dupilumab 300 mg/2 mL subcutaneous syringe (DUPIXENT SYRINGE) Inject 1 syringe (300 mg) subcutaneously every 2 weeks triamcinolone acetonide (KENALOG) 0.1 % cream Apply to affected areas twice daily Saturday-Saturday as needed. Avoid face, groin, and armpits ketoconazole (NIZORAL) 2 % shampoo Use as a body wash once daily for 4 weeks. After 4 weeks, decrease use to once per week as maintenance (Patient not taking: Reported on 12/21/2024) No current facility-administered medications on file prior to visit. [facility] SPECIALTY CLINICAL ASSESSMENT - INFLAMMATORY CONDITIONS V6: Assessment to use: Refill Date of influenza vaccination reminder: 07/13/2024 Date of most recent vaccination assessment: 07/13/2024 Treatment Plan Information: Dupxient 300mg/2mL syringe Inject 1 syringe (300 mg) subcutaneously every 2 weeks L30.9 Dermatitis Est. Tx Plan Start Date: No information available Estimated Start Date Info: No information available Est. Estimated Treatment Duration: Until loss of efficacy and/or no longer tolerated. Monique Lopez CPhT Specialty Pharmacy, Inflammatory/Allergy [phone] [facility] 01-22-2025 History of Presen t illness Narrative [facility] Refill Assessment Medication(s): Dupixent Patient's current medication list and adherence status to current therapy were reviewed by Specialty Pharmacy clinical pharmacist to identify any new drug interactions or non-compliance to therapy. Therapy continues to be appropriate for disease, patient response, and medical condition. Verification of therapeutic benefit and effectiveness with current therapy was completed. Adverse events, barriers in adherence, and side effects were assessed and addressed if applicable. Will proceed with refill with no changes in therapy - patient progressing towards achieving therapeutic goals based on medication-specific laboratory parameters, disease state markers and outcomes. Office/provider notes have been reviewed prior to dispensing the medication. [facility] Assessment Patient confirmed: Yes Med/dose confirmed: Yes Supplies needed: No supplies needed Missed doses: No Estimated days supply on hand: 0 Next cycle/dose due: 02/02/25 Copay amount: 0 Payment confirmed: Yes Delivery method: FedEx Signature required: Waived on patient request Delivery address: [address] [place] [id number] Delivery date: 01/26/25 Questions or concerns for the pharmacist?: No Did you have any side effects believed to be related to this medication, that resulted in hospitalization?: No Current Outpatient Medications on File Prior to Visit Medication Sig diclofenac, EC, (VOLTAREN) 75 mg EC tablet Take 1 tablet by mouth two times a day. methylPREDNISolone (MEDROL, KRISTINA,) 4 mg Dose-Pack As Instructed per package acetaminophen (TYLENOL 8 HOUR) 650 mg CR tablet Take 1 tablet by mouth every 8 hours as needed for pain. cyclobenzaprine (FLEXERIL) 10 mg tablet Take 1 tablet by mouth three times a day as needed for muscle spasm or pain. dupilumab 300 mg/2 mL subcutaneous syringe (DUPIXENT SYRINGE) Inject 1 syringe (300 mg) subcutaneously every 2 weeks triamcinolone acetonide (KENALOG) 0.1 % cream Apply to affected areas twice daily Saturday-Saturday as needed. Avoid face, groin, and armpits ketoconazole (NIZORAL) 2 % shampoo Use as a body wash once daily for 4 weeks. After 4 weeks, decrease use to once per week as maintenance (Patient not taking: Reported on 12/21/2024) No current facility-administered medications on file prior to visit. [facility] SPECIALTY CLINICAL ASSESSMENT - INFLAMMATORY CONDITIONS V6: Assessment to use: Refill Date of influenza vaccination reminder: 07/13/2024 Date of most recent vaccination assessment: 07/13/2024 Treatment Plan Information: Dupxient 300mg/2mL syringe Inject 1 syringe (300 mg) subcutaneously every 2 weeks L30.9 Dermatitis Est. Tx Plan Start Date: No information available Estimated Start Date Info: No information available Est. Estimated Treatment Duration: Until loss of efficacy and/or no longer tolerated. Monique Lopez [facility] Pharmacy, Inflammatory/Allergy [phone] documented in this encounter [facility] 01-22-2025 Note HNO ID: [id number] Author: ?, ?, ? Service: ? Author Type: ? Type: Progress Notes Filed: 01/22/2025 09:56 Note Text: [facility] Refill Assessment Medication(s): Dupixent Patient's current medication list and adherence status to current therapy were reviewed by Specialty Pharmacy clinical pharmacist to identify any new drug interactions or non-compliance to therapy. Therapy continues to be appropriate for disease, patient response, and medical condition. Verification of therapeutic benefit and effectiveness with current therapy was completed. Adverse events, barriers in adherence, and side effects were assessed and addressed if applicable. Will proceed with refill with no changes in therapy - patient progressing towards achieving therapeutic goals based on medication-specific laboratory parameters, disease state markers and outcomes. Office/provider notes have been reviewed prior to dispensing the medication. [facility] Assessment Patient confirmed: Yes Med/dose confirmed: Yes Supplies needed: No supplies needed Missed doses: No Estimated days supply on hand: 0 Next cycle/dose due: 02/02/25 Copay amount: 0 Payment confirmed: Yes Delivery method: FedEx Signature required: Waived on patient request Delivery address: [address] [place] [id number] Delivery date: 01/26/25 Questions or concerns for the pharmacist?: No Did you have any side effects believed to be related to this medication, that resulted in hospitalization?: No Current Outpatient Medications on File Prior to Visit Medication Sig diclofenac, EC, (VOLTAREN) 75 mg EC tablet Take 1 tablet by mouth two times a day. methylPREDNISolone (MEDROL, KRISTINA,) 4 mg Dose-Pack As Instructed per package acetaminophen (TYLENOL 8 HOUR) 650 mg CR tablet Take 1 tablet by mouth every 8 hours as needed for pain. cyclobenzaprine (FLEXERIL) 10 mg tablet Take 1 tablet by mouth three times a day as needed for muscle spasm or pain. dupilumab 300 mg/2 mL subcutaneous syringe (DUPIXENT SYRINGE) Inject 1 syringe (300 mg) subcutaneously every 2 weeks triamcinolone acetonide (KENALOG) 0.1 % cream Apply to affected areas twice daily Saturday-Saturday as needed. Avoid face, groin, and armpits ketoconazole (NIZORAL) 2 % shampoo Use as a body wash once daily for 4 weeks. After 4 weeks, decrease use to once per week as maintenance (Patient not taking: Reported on 12/21/2024) No current facility-administered medications on file prior to visit. [facility] SPECIALTY CLINICAL ASSESSMENT - INFLAMMATORY CONDITIONS V6: Assessment to use: Refill Date of influenza vaccination reminder: 07/13/2024 Date of most recent vaccination assessment: 07/13/2024 Treatment Plan Information: Dupxient 300mg/2mL syringe Inject 1 syringe (300 mg) subcutaneously every 2 weeks L30.9 Dermatitis Est. Tx Plan Start Date: No information available Estimated Start Date Info: No information available Est. Estimated Treatment Duration: Until loss of efficacy and/or no longer tolerated. Monique Lopez [facility], Inflammatory/Allergy [phone] [facility] 01-21-2025 Instructions Jenaro Yadav MD - 01/21/2025 10:46 AM EDT We discussed your low back pain and sciatica: - You reported experiencing constant pain for the past 5-6 weeks, starting in your lower back and radiating down your left leg, with associated numbness and tingling. This pain is interfering with your sleep and daily activities. - I administered an injection today to help reduce your pain. This was a muscle relaxant and anti-inflammatory injection, not a spinal injection. - I prescribed a 5-day course of a steroid pack to reduce inflammation. After completing the steroid pack, you should start taking an anti-inflammatory medication twice daily for one month. I also prescribed a muscle relaxant to use as needed. All prescriptions have been sent to your pharmacy at [facility] in [place]. - I recommend you undergo an x-ray of your lower back. You can complete this at a [facility] location in [place] so I can review the results. - To help manage your symptoms, I recommend starting physical therapy and/or seeing a chiropractor: - For physical therapy, you can go to [facility] in [place] or a [facility] location. I provided a referral for you to take to [facility] if you choose to go there. - For care transition coordinator, I provided a referral that you can take to any chiropractor in your area. - If your symptoms do not improve within 6-8 weeks, we will consider obtaining an MRI to evaluate for potential disc issues in your spine. This will require completion of physical therapy first, as it is necessary for insurance approval. We discussed establishing primary care: - You do not currently have a primary care provider. I recommend establishing care with a primary care physician in [place] to help manage your overall health and coordinate any future care needs. Please follow the care plan outlined above. If your symptoms worsen or do not improve despite these measures, please contact our office for further evaluation. documented in this encounter [facility] 01-21-2025 Note HNO ID: [id number] Author: JENARO YADAV MD Service: ? Author Type: Physician Type: Procedures Filed: 01/21/2025 10:54 Note Text: TRIGGER POINTS INJECTION: ASSESSMENT: Pre-procedure diagnosis: Muscular pain/ Painful trigger points Post-procedure diagnosis: Same INFORMED CONSENT The risks, benefits and anticipated outcomes of the procedure, the risks involved from doping the procedure, potential benefits form the procedure , alternatives to the procedure and the roles and tasks of the personnel to be involved were discussed with the patient and the patient consents to the procedure and agrees to proceed. I verify that I personally obtained Boo Sweeney informed consent to perform the injection. Name: Jenaro Yadav MD Date: January 21, 2025 UNIVERSAL PROTOCOL / SAFETY CHECKLIST I. CORRECT PATIENT: Correct Name: Yes Correct : Yes Correct Patient Agreed by Each Member of the Procedural Team: Yes II. CORRECT PROCEDURE: Patient Understands/Agrees to the Procedure: Yes Correct Procedure by Each Member of the Procedural Team: Yes Procedure Matches Informed Consent: Yes III. CORRECT SIDE/SITE Correct Side/Site Marked YES or Physician Initials by Physician: Yes Demar Will be Visible After Patient is Prepped: Yes Correct Side/Site Agreed by Each Member of the Procedural Team: Yes IV. CORRECT PATIENT POSITIONING: Yes V. SURGICAL PREP DRY: Yes TIMEOUT PROCEDURE PERFORMED AT: 10:34 AM PROCEDURE Procedure: Trigger point injections to the left gluteal muscles The procedure was performed in the usual manner. After patient appropriate postioning in Side /supine, injection area was prepped with sterile solution. After identified the sites of injection, A solution of 0.5% Bupivacaine 3 ml and 40 Mg Triamcinolone was administered using 25 gauge needle 1 inch length . Patient has tolerated the procedure well and was discharged home in stable condition. Toradol 30 mg IM x 1 Post injection discharge instructions were given. Pre Procedure Pain Level: Same as above Post Procedure Pain Level: 1 on a scale of 0-10. SIGN OUT 1044 No instruments, equipment or retained foreign bodies applicable. PLAN: follow up in 3-4 weeks Signature: Jenaro Yadav MD Date: January 21, 2025 [facility] 01-21-2025 Procedure note TRIGGER POINTS INJECTION: ASSESSMENT: Pre-procedure diagnosis: Muscular pain/ Painful trigger points Post-procedure diagnosis: Same INFORMED CONSENT The risks, benefits and anticipated outcomes of the procedure, the risks involved from doping the procedure, potential benefits form the procedure , alternatives to the procedure and the roles and tasks of the personnel to be involved were discussed with the patient and the patient consents to the procedure and agrees to proceed. I verify that I personally obtained Boo Sweeney informed consent to perform the injection. Name: Jenaro Yadav MD Date: January 21, 2025 UNIVERSAL PROTOCOL / SAFETY CHECKLIST I. CORRECT PATIENT: Correct Name: Yes Correct : Yes Correct Patient Agreed by Each Member of the Procedural Team: Yes II. CORRECT PROCEDURE: Patient Understands/Agrees to the Procedure: Yes Correct Procedure by Each Member of the Procedural Team: Yes Procedure Matches Informed Consent: Yes III. CORRECT SIDE/SITE Correct Side/Site Marked YES or Physician Initials by Physician: Yes Demar Will be Visible After Patient is Prepped: Yes Correct Side/Site Agreed by Each Member of the Procedural Team: Yes IV. CORRECT PATIENT POSITIONING: Yes V. SURGICAL PREP DRY: Yes TIMEOUT PROCEDURE PERFORMED AT: 10:34 AM PROCEDURE Procedure: Trigger point injections to the left gluteal muscles The procedure was performed in the usual manner. After patient appropriate postioning in Side /supine, injection area was prepped with sterile solution. After identified the sites of injection, A solution of 0.5% Bupivacaine 3 ml and 40 Mg Triamcinolone was administered using 25 gauge needle 1 inch length . Patient has tolerated the procedure well and was discharged home in stable condition. Toradol 30 mg IM x 1 Post injection discharge instructions were given. Pre Procedure Pain Level: Same as above Post Procedure Pain Level: 1 on a scale of 0-10. SIGN OUT 1044 No instruments, equipment or retained foreign bodies applicable. PLAN: follow up in 3-4 weeks Signature: Jenaro Yadav MD Date: January 21, 2025 T [facility] 01-21-2025 Procedure note TRIGGER POINTS INJECTION: ASSESSMENT: Pre-procedure diagnosis: Muscular pain/ Painful trigger points Post-procedure diagnosis: Same INFORMED CONSENT The risks, benefits and anticipated outcomes of the procedure, the risks involved from doping the procedure, potential benefits form the procedure , alternatives to the procedure and the roles and tasks of the personnel to be involved were discussed with the patient and the patient consents to the procedure and agrees to proceed. I verify that I personally obtained Boo Sweeney informed consent to perform the injection. Name: Jenaro Yadav MD Date: January 21, 2025 UNIVERSAL PROTOCOL / SAFETY CHECKLIST I. CORRECT PATIENT: Correct Name: Yes Correct : Yes Correct Patient Agreed by Each Member of the Procedural Team: Yes II. CORRECT PROCEDURE: Patient Understands/Agrees to the Procedure: Yes Correct Procedure by Each Member of the Procedural Team: Yes Procedure Matches Informed Consent: Yes III. CORRECT SIDE/SITE Correct Side/Site Marked YES or Physician Initials by Physician: Yes Demar Will be Visible After Patient is Prepped: Yes Correct Side/Site Agreed by Each Member of the Procedural Team: Yes IV. CORRECT PATIENT POSITIONING: Yes V. SURGICAL PREP DRY: Yes TIMEOUT PROCEDURE PERFORMED AT: 10:34 AM PROCEDURE Procedure: Trigger point injections to the left gluteal muscles The procedure was performed in the usual manner. After patient appropriate postioning in Side /supine, injection area was prepped with sterile solution. After identified the sites of injection, A solution of 0.5% Bupivacaine 3 ml and 40 Mg Triamcinolone was administered using 25 gauge needle 1 inch length . Patient has tolerated the procedure well and was discharged home in stable condition. Toradol 30 mg IM x 1 Post injection discharge instructions were given. Pre Procedure Pain Level: Same as above Post Procedure Pain Level: 1 on a scale of 0-10. SIGN OUT 1044 No instruments, equipment or retained foreign bodies applicable. PLAN: follow up in 3-4 weeks Signature: Jenaro Yadav MD Date: January 21, 2025 documented in this encounter [facility] 01-21-2025 History of Presen t illness Narrative Images from the original note were not included. Pain Management New Patient Evaluation Patient Name: Boo Sweeney MR #: [id number] Age: [age] year old Date: 01/21/2025 Referred by: No referring provider defined for this encounter. Phone: N/A Fax: Chief Complaint: This patient is a 54 year old male Patient presents with: Low Back Pain: LBP that radiates down into left buttock and wraps around into left frontal thigh x 5-6 weeks. Pt recalls last incident of low back pain was 10 years ago. This Episode: Date of Onset for this episode: 5-6 weeks Pattern: Constant, Daily, and Worsening. Character: Electric Shock going down his back Severity: VAS Pain: 7/10 Current; 10/10 Worst; 5/10 Best. Radiation: radiating to left leg. Exacerbating Factors: prolonged standing . Always there Alleviating Factors: heat-hot bath . Associated Signs/Symptoms: Sleep disturbance; awakens during night due to pain. Sensory/Motor Changes: Tingling or Numbness. Progressive Weakness?: No. AM Stiffness?: Yes. Duration: 10-15 minutes. Changes in Bowel/Bladder Control?: No. Past History of Pain in similar or same area: No 12/21/2024 01/21/2025 INTAKE PAIN ASSESSMENT Are you having pain associated with your visit today? No Yes, Provider notified Pain Scales Verbal (Numeric Rating or Visual Analog Scale) Pain Level 7 Pain Location Back-Lower Description Other: See comment Duration Amount of Time 6 Duration Units Weeks Frequency Continuous Intervention/Comfort measure Heat Previous Treatments: OTC Meds: muscle cream Effect: no relief Prescription Meds: none Effect: NA General: heat . Effect: temporary relief Assistive Devices: NA Physical Therapy: none Pain Procedure(s): No Effects of Pain: Personal Care: Independent . Household Tasks: Independent . Job Functions: Independent . 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 PAST MEDICAL HISTORY Diagnosis Date Mild dilation of ascending aorta 04/09/2018 Smoker 12/27/2015 Started at age 17, 1PPD PAST SURGICAL HISTORY Procedure Laterality Date LAPAROSCOPY SURG RPR INITIAL INGUINAL HERNIA Right 07/2020 PAST SURGICAL HISTORY OF pins/screws right lower leg Social History Tobacco Use Smoking status: Every Day Current packs/day: 1.00 Average packs/day: 1 pack/day for 25.0 years (25.0 ttl pk-yrs) Types: Cigarettes Smokeless tobacco: Never Substance Use Topics Alcohol use: Yes Alcohol/week: 12.0 standard drinks of alcohol Types: 12 Cans of Beer (12oz) per week Drug use: No FAMILY HISTORY Problem Relation Age of Onset Diabetes Maternal Grandfather Psychiatry Mother other (parkinson's) Mother Coronary Artery Disease Father 40's other (meningitis) Father Current Outpatient Medications on File Prior to Visit Medication Sig dupilumab 300 mg/2 mL subcutaneous syringe (DUPIXENT SYRINGE) Inject 1 syringe (300 mg) subcutaneously every 2 weeks triamcinolone acetonide (KENALOG) 0.1 % cream Apply to affected areas twice daily Saturday-Saturday as needed. Avoid face, groin, and armpits ketoconazole (NIZORAL) 2 % shampoo Use as a body wash once daily for 4 weeks. After 4 weeks, decrease use to once per week as maintenance (Patient not taking: Reported on 12/21/2024) No current facility-administered medications on file prior to visit. ALLERGIES Allergen Reactions Penicillins Anaphylaxis REVIEW OF SYSTEMS / Per patient verbal report . Review of Systems: General Appearance: pleasant. General: Normal/Negative. Skin: rash. Heart/Lungs: mild dilatation of ascending aorta, palpitations. GI: Normal/Negative. /INCLINOMETER TESTER: renal insufficiency. Heme: Normal/Negative. Endo: Normal/Negative. Neuro: anxiety. HEENT: Normal/Negative Skeletal: low back pain. Is patient on blood thinners? No Patient feels safe at home: Yes BP 137/81 Pulse 99 Wt 107.5 kg (237 lb) SpO2 97% BMI 31.48 kg/m Imaging / Lab Results: no imaging Latest Reference Range & Units 05/18/24 08:35 Sodium 136 - 144 mmol/L 139 Potassium 3.7 - 5.1 mmol/L 4.4 Chloride 98 - 107 mmol/L 105 CO2 22 - 30 mmol/L 24 BUN 9 - 24 mg/dL 15 Creatinine 0.73 - 1.22 mg/dL 0.93 Glucose 74 - 99 mg/dL 102 (H) Protein, Total 6.3 - 8.0 g/dL 6.8 Calcium 8.5 - 10.2 mg/dL 9.1 Albumin 3.9 - 4.9 g/dL 4.3 Bilirubin, Total 0.2 - 1.3 mg/dL 0.4 Alkaline Phosphatase 38 - 113 U/L 88 ALT 10 - 54 U/L 17 AST 14 - 40 U/L 15 (H): Data is abnormally high Latest Reference Range & Units 05/18/24 08:35 WBC 3.70 - 11.00 k/uL 7.30 RBC 4.20 - 6.00 m/uL 5.51 Hemoglobin 13.0 - 17.0 g/dL 16.0 Hematocrit 39.0 - 51.0 % 50.7 Platelet Count 150 - 400 k/uL 260 Patient Entered Questionnaires PROMIS Score Percentiles 08/01/2023 05/21/2024 12/21/2024 PROMIS Global Health Scale Physical Health Percentile 15 31 22* Mental Health Percentile 26* 43 73 Patient-reported Percentiles provide an indication of how the patient's score ranks in relation to the general population. Higher percentile rankings indicate better function/quality of life. 50th percentile is the average of the general population and indicates half of respondents had a worse score. > 31st percentile is within normal limits or better * < 31st percentile is at least SD worse than population, which may be clinically relevant < 16th percentile is at least 1 SD worse than population and warrants attention Director Of Student Affairs: Ross Horvath RN - all information received per patient verbal report I have personally reviewed the above information: including chief complaint, past medical history, surgical history, social history and have verified the relevant aspects of patient's review of systems, this were explored in detail with the patient and edited as necessary after I have personally evaluated the patient and conducted my face to face interview. I have also reviewed the above reported work up . Reviewing the above work up was clinically necessary for my final decision regarding the patient's future management and plan of care. Jenaro Yadav MD January 21, 2025, 10:47 AM Physical Examination: No Data Recorded Patient Entered Questionnaires: PROMIS Score Percentiles 08/01/2023 05/21/2024 12/21/2024 PROMIS Global Health Scale Physical Health Percentile 15 31 22* Mental Health Percentile 26* 43 73 Patient-reported Percentiles provide an indication of how the patient's score ranks in relation to the general population. Higher percentile rankings indicate better function/quality of life. 50th percentile is the average of the general population and indicates half of respondents had a worse score. > 31st percentile is within normal limits or better * < 31st percentile is at least SD worse than population, which may be clinically relevant < 16th percentile is at least 1 SD worse than population and warrants attention History of Present Illness: Boo is a 54-year-old male presenting with low back pain radiating to the left leg. Boo reports a 5-6 week history of low back pain radiating to the left leg, described as sciatic nerve pain. The pain originates in the lower back, extends through the left gluteal region, and wraps around the anterior aspect of the left leg. The pain is constant, worsening over time, and is severe enough to disrupt sleep. 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 He suspects the pain may be related to his work activities. He also reports associated paresthesia in the left leg and exacerbation of pre-existing plantar fasciitis in the left foot since the onset of the back pain. He denies any issues with bowel or bladder control and does not feel like he is tripping or falling when walking. He has not sought prior medical evaluation or treatment for this issue and has not undergone any imaging studies. Physical Exam: Dr Ej DO, Fellow was present during the interview and physical exam. BP 137/81 Pulse 99 Wt 237 lb (107.5kg) SpO2 97% Physical Exam Vitals and nursing note reviewed. Constitutional: General: He is not in acute distress (mild distress but more pain related and due to discomfort). Appearance: Normal appearance. He is normal weight. He is not toxic-appearing. HENT: Head: Normocephalic and atraumatic. Nose: Nose normal. Mouth/Throat: Mouth: Mucous membranes are moist. Eyes: Extraocular Movements: Extraocular movements intact. Pupils: Pupils are equal, round, and reactive to light. Cardiovascular: Rate and Rhythm: Normal rate and regular rhythm. Pulmonary: Effort: Pulmonary effort is normal. No respiratory distress. Abdominal: General: Abdomen is flat. Palpations: Abdomen is soft. Musculoskeletal: Cervical back: Normal, normal range of motion and neck supple. Thoracic back: Normal. Lumbar back: Tenderness present. Decreased range of motion. Positive left straight leg raise test. Back: Legs: Skin: General: Skin is warm. Neurological: General: No focal deficit present. Mental Status: He is alert and oriented to person, place, and time. Mental status is at baseline. Cranial Nerves: No cranial nerve deficit. Sensory: No sensory deficit. Motor: No weakness. Coordination: Coordination normal. Gait: Gait abnormal. Deep Tendon Reflexes: Reflexes normal. Psychiatric: Mood and Affect: Mood normal. Behavior: Behavior normal. Thought Content: Thought content normal. Judgment: Judgment normal. OARRS website checked and validated General: No acute distress. Back: Tenderness to palpation over the left paraspinal region. MSK/Ext: Pain on palpation of the left lower extremity. OARRS website checked and validated. All prescriptions have been APPROPRIATELY filled. No suspicious activity was identified. - by Jenaro Yadav MD Assessment: Boo Sweeney is a 54 year old male with has a past medical history of Mild dilation of ascending aorta (04/09/2018) and Smoker (12/27/2015). has a past surgical history that includes past surgical history of and laparoscopy surg rpr initial inguinal hernia (Right, 07/2020). Today patient presents with acute low back and left lower extremity for 4 weeks following probably heavy lifting at his work. Suspect probable cause with disc injury, proceed with managing his acute presentation with conservative protocol since he has no neurological red flag . He has significant muscular component causing most of his pain , will manage with injection as noted below. M54.32 Sciatica, left side (primary encounter diagnosis) M54.42 Acute back pain with sciatica, left M72.2 Plantar fasciitis of left foot Z71.9 Health counseling M79.18 Myofascial pain Comment: left gluteal Plan of care & Recommendations: # Acute back pain with sciatica, left (M54.42) # Sciatica, left side (M54.32) Patient presents with acute low back pain radiating to the left leg, consistent with sciatica. Pain is constant, worsening over the past 5-6 weeks, and associated with numbness and tingling. No bowel or bladder incontinence reported. No falls or tripping noted. 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 - Administered intramuscular injection for immediate pain relief. - Prescribed a 5-day course of oral corticosteroids, followed by a month-long regimen of NSAIDs twice daily. - Prescribed muscle relaxant for symptomatic relief. - Ordered lumbar spine X-ray to be performed at a [facility] facility in [place]. - Referred to physical therapy at [facility] in [place]. - Provided referral for care transition coordinator in [place]. - Discussed potential need for MRI if symptoms do not improve within 6-8 weeks. - Advised patient to establish care with a primary care physician for ongoing management. # Health counseling (Z71.9) Patient educated on the importance of following the treatment plan, including medication adherence, physical therapy, and care transition coordinator. Discussed the potential need for further imaging if symptoms persist. - Provided detailed instructions on medication use and referrals. - Emphasized the importance of completing physical therapy to facilitate insurance approval for MRI if needed. # Myofascial pain (M79.18) Contributing to the overall pain syndrome; likely secondary to occupational strain. - Addressed with prescribed muscle relaxant and physical therapy. # Plantar fasciitis of left foot (M72.2) Exacerbated by current sciatica and back pain. - Management to be integrated with overall treatment for sciatica and back pain. Medical necessity statement for performing urgent procedure with trigger points injections. : Based on the severity of patient pain , correlated with his clinical presentation and exam. He has been experiencing moderate to severe muscular and gluteal muscular pain causing difficulty with standing and performing ADL, It was determined to be medically appropriate to provide him with treatment to help his acute muscular severe pain component and helping him to resume some of basic ADL and return to work and avoid unnecessary ER visit. . Orders Placed This Encounter *TRIGGER POINT INJECTION 3 OR MORE MUSCLES XR LUMBAR MOTION 4V AP/LAT/ FLEX/EXT Standing Status: Future Expiration Date: 02/20/2026 SPINE REHAB - Consult to Physical Therapy Standing Status: Future Expiration Date: 01/21/2026 Scheduling Instructions: For an appointment call: [facility]: [phone]. [facility]: [phone], Option 1. [facility]: [phone] [facility]: [phone] [facility]: [phone] [facility]) ADULTS - For an appointment call: [place], [place]: [phone] ([address]) [place], [place]: [phone] ([address]) or [phone] ([address] [place], [place]: [phone] ([address]) or [phone] ([address], [address]) or [phone] ([address], [address]) PEDIATRICS - For an appointment call: [place], [place]: [phone] ([address] [facility]) The service agent will assist you in selecting the location and specialty service that will best meet your needs. For a list of sites and services: [email or web address] Order Date: January 21, 2025 Ordering Physician: Jenaro Yadav MD (Signed Electronically in [employer]) Type of PT: Spine Spine: Spine Rehab Does consulting provider have [facility] Epic access?: Yes Treatment Plan: Eval and Treat Surgical Procedures: No Surgical Procedure Precautions/Protocols: No Specific Preferred Therapist: First Available Preferred Location: First Available CONSULT TO CHIROPRACTOR Standing Status: Future Expiration Date: 01/21/2026 Scheduling Instructions: Locations/Phone Numbers: [facility]/[place] /[place]: [phone] [facility]: Does consulting provider have [facility] Epic access?: Yes ESTABLISH WITH PRIMARY CARE - NEW PATIENT Order Comments: The Population Health Navigation team will perform outreach to assist the patient with scheduling into the their preferred location and department. Standing Status: Future Expiration Date: 01/21/2026 Does consulting provider have [facility] Epic access?: Yes diclofenac, EC, (VOLTAREN) 75 mg EC tablet Sig: Take 1 tablet by mouth two times a day. Dispense: 60 tablet Refill: 1 methylPREDNISolone (MEDROL, KRISTINA,) 4 mg Dose-Pack Sig: As Instructed per package Dispense: 21 tablet Refill: 0 acetaminophen (TYLENOL 8 HOUR) 650 mg CR tablet Sig: Take 1 tablet by mouth every 8 hours as needed for pain. Dispense: 270 each Refill: 0 cyclobenzaprine (FLEXERIL) 10 mg tablet Sig: Take 1 tablet by mouth three times a day as needed for muscle spasm or pain. Dispense: 90 tablet Refill: 1 keTORolac 30 mg injection (Toradol) triamcinolone acetonide 40 mg injection (KeNALog 40) BUPivacaine (PF) 0.5 % (5 mg/mL) 15 mg injection I discussed the main goal of the injection / Nerve block to help and reduce severe pain and increase the overall ability to function with less pain and discomfort. I have explained that this type of minimally invasive pain management interventions, together with involving in active physical therapy and proper weight management are intended to help managing painful symptoms and not for the purpose of cure of any chronic condition. Patient may require to still pursue more investigational work ups and/or seeking other referral to discuss other available options for the ongoing problem; if not receiving the level of relief is looking for, patient acknowledged and expressed full understanding. During this visit, discussed with patient the treatment plan as outlined until RTC in after x ray and PT/ medical treatment, consider MRI if no relief . Patient is advised to follow up personally on scheduling appointments for follow ups, any required medical test or referrals. The above plan and management options were discussed at length with patient. Patient is in agreement with the above and verbalized understanding. I spent a total of 45 minutes on the date of the service which included preparing to see the patient, [id number] patient care, completing clinical documentation, obtaining and/or reviewing separately obtained history, performing a medically appropriate examination, counseling and educating the patient/family/caregiver, ordering medications, tests, or procedures, communicating with other HCPs (not separately reported), independently interpreting results (not separately reported), communicating results to the patient/family/caregiver, care coordination (not separately reported), and time excludes procedure 10 , with more than 50% of the total [id number] time of the visit in counseling / coordination of care. Electronically signed: Jenaro Yadav MD Date: January 21, 2025 The consultation is to be transmitted via electronic medical record for those providers who practice within [facility] and for those with access to [facility] via MD Connect or via letter. documented in this encounter [facility] 01-21-2025 Note HNO ID: [id number] Author: JENARO YADAV MD Service: ? Author Type: Physician Type: Progress Notes Filed: 01/21/2025 10:54 Note Text: Pain Management New Patient Evaluation Patient Name: Boo Sweeney MR #: [id number] Age: [age] year old Date: 01/21/2025 Referred by: No referring provider defined for this encounter. Phone: N/A Fax: Chief Complaint: This patient is a 54 year old male Patient presents with: Low Back Pain: LBP that radiates down into left buttock and wraps around into left frontal thigh x 5-6 weeks. Pt recalls last incident of low back pain was 10 years ago. This Episode: Date of Onset for this episode: 5-6 weeks Pattern: Constant, Daily, and Worsening. Character: Electric Shock going down his back Severity: VAS Pain: 7/10 Current; 10/10 Worst; 5/10 Best. Radiation: radiating to left leg. Exacerbating Factors: prolonged standing . Always there Alleviating Factors: heat-hot bath . Associated Signs/Symptoms: Sleep disturbance; awakens during night due to pain. Sensory/Motor Changes: Tingling or Numbness. Progressive Weakness?: No. AM Stiffness?: Yes. Duration: 10-15 minutes. Changes in Bowel/Bladder Control?: No. Past History of Pain in similar or same area: No 12/21/2024 01/21/2025 INTAKE PAIN ASSESSMENT Are you having pain associated with your visit today? No Yes, Provider notified Pain Scales Verbal (Numeric Rating or Visual Analog Scale) Pain Level 7 Pain Location Back-Lower Description Other: See comment Duration Amount of Time 6 Duration Units Weeks Frequency Continuous Intervention/Comfort measure Heat Previous Treatments: OTC Meds: muscle cream Effect: no relief Prescription Meds: none Effect: NA General: heat . Effect: temporary relief Assistive Devices: NA Physical Therapy: none Pain Procedure(s): No Effects of Pain: Personal Care: Independent . Household Tasks: Independent . Job Functions: Independent . 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 PAST MEDICAL HISTORY Diagnosis Date Mild dilation of ascending aorta 04/09/2018 Smoker 12/27/2015 Started at age 17, 1PPD PAST SURGICAL HISTORY Procedure Laterality Date LAPAROSCOPY SURG RPR INITIAL INGUINAL HERNIA Right 07/2020 PAST SURGICAL HISTORY OF pins/screws right lower leg Social History Tobacco Use Smoking status: Every Day Current packs/day: 1.00 Average packs/day: 1 pack/day for 25.0 years (25.0 ttl pk-yrs) Types: Cigarettes Smokeless tobacco: Never Substance Use Topics Alcohol use: Yes Alcohol/week: 12.0 standard drinks of alcohol Types: 12 Cans of Beer (12oz) per week Drug use: No FAMILY HISTORY Problem Relation Age of Onset Diabetes Maternal Grandfather Psychiatry Mother other (parkinson's) Mother Coronary Artery Disease Father 40's other (meningitis) Father Current Outpatient Medications on File Prior to Visit Medication Sig dupilumab 300 mg/2 mL subcutaneous syringe (DUPIXENT SYRINGE) Inject 1 syringe (300 mg) subcutaneously every 2 weeks triamcinolone acetonide (KENALOG) 0.1 % cream Apply to affected areas twice daily Saturday-Saturday as needed. Avoid face, groin, and armpits ketoconazole (NIZORAL) 2 % shampoo Use as a body wash once daily for 4 weeks. After 4 weeks, decrease use to once per week as maintenance (Patient not taking: Reported on 12/21/2024) No current facility-administered medications on file prior to visit. ALLERGIES Allergen Reactions Penicillins Anaphylaxis REVIEW OF SYSTEMS / Per patient verbal report . Review of Systems: General Appearance: pleasant. General: Normal/Negative. Skin: rash. Heart/Lungs: mild dilatation of ascending aorta, palpitations. GI: Normal/Negative. /INCLINOMETER TESTER: renal insufficiency. Heme: Normal/Negative. Endo: Normal/Negative. Neuro: anxiety. HEENT: Normal/Negative Skeletal: low back pain. Is patient on blood thinners? No Patient feels safe at home: Yes BP 137/81 Pulse 99 Wt 107.5 kg (237 lb) SpO2 97% BMI 31.48 kg/m? Imaging / Lab Results: no imaging Latest Reference Range AND Units 05/18/24 08:35 Sodium 136 - 144 mmol/L 139 Potassium 3.7 - 5.1 mmol/L 4.4 Chloride 98 - 107 mmol/L 105 CO2 22 - 30 mmol/L 24 BUN 9 - 24 mg/dL 15 Creatinine 0.73 - 1.22 mg/dL 0.93 Glucose 74 - 99 mg/dL 102 (H) Protein, Total 6.3 - 8.0 g/dL 6.8 Calcium 8.5 - 10.2 mg/dL 9.1 Albumin 3.9 - 4.9 g/dL 4.3 Bilirubin, Total 0.2 - 1.3 mg/dL 0.4 Alkaline Phosphatase 38 - 113 U/L 88 ALT 10 - 54 U/L 17 AST 14 - 40 U/L 15 (H): Data is abnormally high Latest Reference Range AND Units 05/18/24 08:35 WBC 3.70 - 11.00 k/uL 7.30 RBC 4.20 - 6.00 m/uL 5.51 Hemoglobin 13.0 - 17.0 g/dL 16.0 Hematocrit 39.0 - 51.0 % 50.7 Platelet Count 150 - 400 k/uL 260 Patient Entered Questionnaires PROMIS Score Percentiles 08/01/2023 05/21/2024 12/21/2024 PROMIS Global Health Scale Physical Health Percentile 15 31 22* Mental Health Percentile 26* 43 73 Patient-reported Percentiles provid (more content not included)... [facility] 12-24-2024 Note HNO ID: [id number] Author: SIS ROBLEDO RPh Service: ? Author Type: ? Type: Progress Notes Filed: 12/28/2024 16:54 Note Text: [facility] Specialty Refill Assessment Medication(s): Dupixent Patient's current medication list and adherence status to current therapy were reviewed by Specialty Pharmacy clinical pharmacist to identify any new drug interactions or non-compliance to therapy. Therapy continues to be appropriate for disease, patient response, and medical condition. Verification of therapeutic benefit and effectiveness with current therapy was completed. Adverse events, barriers in adherence, and side effects were assessed and addressed if applicable. Will proceed with refill with no changes in therapy - patient progressing towards achieving therapeutic goals based on medication-specific laboratory parameters, disease state markers and outcomes. Office/provider notes have been reviewed prior to dispensing the medication. Plan from OV 12/21/24: flare at lower abdomen, likely contact dermatitis to belt buckle; otherwise well controlled on dupixent; tolerating well without side effects Sis Robledo, PharmD Clinical Pharmacist, [employer] [facility] ; Pool: P [facility] Pool #: [id number] [employer] Assessment Patient confirmed: Yes Med/dose confirmed: Yes Supplies needed: No supplies needed Missed doses: No Estimated days supply on hand: 0 Next cycle/dose due: 01/02/25 Copay amount: 0 Payment confirmed: Yes Delivery method: FedEx Signature required: Waived on patient request Delivery address: [address] [place] [address] Delivery date: 12/30/24 Questions or concerns for the pharmacist?: No Did you have any side effects believed to be related to this medication, that resulted in hospitalization?: No Current Outpatient Medications on File Prior to Visit Medication Sig dupilumab 300 mg/2 mL subcutaneous syringe (DUPIXENT SYRINGE) Inject 1 syringe (300 mg) subcutaneously every 2 weeks triamcinolone acetonide (KENALOG) 0.1 % cream Apply to affected areas twice daily Saturday-Saturday as needed. Avoid face, groin, and armpits ketoconazole (NIZORAL) 2 % shampoo Use as a body wash once daily for 4 weeks. After 4 weeks, decrease use to once per week as maintenance (Patient not taking: Reported on 12/21/2024) No current facility-administered medications on file prior to visit. [facility] CLINICAL ASSESSMENT - INFLAMMATORY CONDITIONS V6: Assessment to use: Refill Assessment of injection issues: Yes Infection screening, including annual TB assessment when applicable to medication: Yes Current medication list (including drug interaction assessment): Yes Experience of adverse reactions to the medication: Yes Date of influenza vaccination reminder: 07/13/2024 Date of most recent vaccination assessment: 07/13/2024 Treatment Plan Information: Dupxient 300mg/2mL syringe Inject 1 syringe (300 mg) subcutaneously every 2 weeks L30.9 Dermatitis Est. Tx Plan Start Date: No information available Estimated Start Date Info: No information available Est. Estimated Treatment Duration: Until loss of efficacy and/or no longer tolerated. [facility]23-[facility]24 History of Presen t illness Narrative Kenny DANIELLE renewal for was initiated and pending review. Plan Name: Rusty Connors Agent/Masters: [id number] Case: [id number] Timeline: Standard Rema Aguilar CPhT [facility] documented in this encounter [facility] 12-23-2024 Note HNO ID: [id number] Author: ?, ?, ? Service: ? Author Type: ? Type: Progress Notes Filed: 12/23/2024 14:22 Note Text: Kenny DANIELLE renewal for was initiated and pending review. Plan Name: Rusty Connors Agent/Masters: [id number] Case: [id number] Timeline: Standard Rema Aguilar CPhT [facility] 12-23-2024 Note HNO ID: [id number] Author: ?, ?, ? Service: ? Author Type: ? Type: Progress Notes Filed: 12/24/2024 09:42 Note Text: Isaura DANIELLE renewal was approved with details listed below. Plan Name: Rusty SHASHI reference number: [id number] Approval Dates: 12/22/2024-12/21/2025 Prescriptions will now be processed through [facility] for determination of next steps. Rema Aguilar CPhT [facility] 12-21-2024 Note HNO ID: [id number] Author: LAURYN SKY PA-C Service: ? Author Type: Physician Kiln Firer Type: Progress Notes Filed: 12/21/2024 16:30 Note Text: DISTANCE HEALTH VISIT This Team Access Model visit is a virtual encounter. It required patient-provider interaction for the medical decision making as documented below. I have communicated my name and active licensure. The patient's identity and physical location were verified at the time of this visit. Either the patient or their legal hardware supplies sales representative has been informed of the risks and benefits of -- and alternatives to -- treatment through a remote evaluation and consents to proceed with the evaluation remotely. Boo Sweeney is a 54 year old male who presents today for Patient presents with: Dermatitis Current Treatment: Dupixent triamcinolone Past Treatment: Taltz (ixekizumab) Cimzia 400 mg (certolizumab pegol) Prednisone tapers History of nonmelanoma skin cancer: none History of Melanoma: none Family history of skin cancer: none Dermatology History: Specialty Problems None Allergies: Penicillins Past Medical History: PAST MEDICAL HISTORY Diagnosis Date Mild dilation of ascending aorta (HCC) 04/09/2018 Smoker 12/27/2015 Started at age 17, 1PPD MEDS: Current Outpatient Medications on File Prior to Visit Medication Sig dupilumab 300 mg/2 mL subcutaneous syringe (DUPIXENT SYRINGE) Inject 1 syringe (300 mg) subcutaneously every 2 weeks triamcinolone acetonide (KENALOG) 0.1 % cream Apply to affected areas twice daily Saturday-Saturday as needed. Avoid face, groin, and armpits ketoconazole (NIZORAL) 2 % shampoo Use as a body wash once daily for 4 weeks. After 4 weeks, decrease use to once per week as maintenance No current facility-administered medications on file prior to visit. Review of systems NA Has pacemaker / defibrillator No Takes aspirin / anticoagulant daily No Has valve disorders No Other problems elsewhere on skin No Altagracia Travis MA The above was entered by the nursing staff. I have reviewed the documentation and I concur. Lauryn DANIELLE HPI: Chief Complaint Dermatitis, eczema Location Flare around waist Duration years Timing constant Severity mild Quality Plaques around belt buckle Modifying Factors: Needs refills. Doing well on dupixent and triamcinolone Physical Exam - Area(s) Examined: No images are attached to the encounter. The pt is alert and oriented, in NAD. Skin examination of head/face and Abdomen was significant for: Items identified on Diagram above Eczematous plaques of the lower abdomen Assessment / Plan: (L30.9) Eczema, unspecified type (primary encounter diagnosis) (L30.9) Dermatitis Comment: flare at lower abdomen, likely contact dermatitis to belt buckle; otherwise well controlled on dupixent; tolerating well without side effects Plan: dupilumab 300 mg/2 mL subcutaneous syringe (DUPIXENT SYRINGE) triamcinolone acetonide (KENALOG) 0.1 % cream R/b/a for the medication(s) including possible side effects discussed and reviewed with patient. By signing my name below, I, Altagracia Travis MA, attest that this documentation has been prepared under the direction and in the presence of Lauryn DANIELLE. Electronically Signed: Altagracia Travis MA, Scribe. December 21, 2024 2:36 PM. I, Lauryn Sky PA-C, personally performed the services described in this documentation. All medical record entries made by the scribe were at my direction and in my presence. I have reviewed the chart and discharge instructions (if applicable) and agree that the record reflects my personal performance and is accurate and complete. Electronically Signed: Lauryn Sky PA-C December 21, 2024 4:23 PM. Patient to return to clinic in ~6 months or PRN for follow-up re-evaluation Patient to contact office as needed with questions/concerns, unimproved or worsening of symptoms Lauryn Sky PA-C [facility] 12-21-2024 History of Presen t illness Narrative DISTANCE HEALTH VISIT This Team Access Model visit is a virtual encounter. It required patient-provider interaction for the medical decision making as documented below. I have communicated my name and active licensure. The patient's identity and physical location were verified at the time of this visit. Either the patient or their legal hardware supplies sales representative has been informed of the risks and benefits of -- and alternatives to -- treatment through a remote evaluation and consents to proceed with the evaluation remotely. Boo Sweeney is a 54 year old male who presents today for Patient presents with: Dermatitis Current Treatment: Dupixent triamcinolone Past Treatment: Taltz (ixekizumab) Cimzia 400 mg (certolizumab pegol) Prednisone tapers History of nonmelanoma skin cancer: none History of Melanoma: none Family history of skin cancer: none Dermatology History: Specialty Problems None Allergies: Penicillins Past Medical History: PAST MEDICAL HISTORY Diagnosis Date Mild dilation of ascending aorta (HCC) 04/09/2018 Smoker 12/27/2015 Started at age 17, 1PPD MEDS: Current Outpatient Medications on File Prior to Visit Medication Sig dupilumab 300 mg/2 mL subcutaneous syringe (DUPIXENT SYRINGE) Inject 1 syringe (300 mg) subcutaneously every 2 weeks triamcinolone acetonide (KENALOG) 0.1 % cream Apply to affected areas twice daily Saturday-Saturday as needed. Avoid face, groin, and armpits ketoconazole (NIZORAL) 2 % shampoo Use as a body wash once daily for 4 weeks. After 4 weeks, decrease use to once per week as maintenance No current facility-administered medications on file prior to visit. Review of systems NA Has pacemaker / defibrillator No Takes aspirin / anticoagulant daily No Has valve disorders No Other problems elsewhere on skin No Altagracia Travis MA The above was entered by the nursing staff. I have reviewed the documentation and I concur. Lauryn DANIELLE HPI: Chief Complaint Dermatitis, eczema Location Flare around waist Duration years Timing constant Severity mild Quality Plaques around belt buckle Modifying Factors: Needs refills. Doing well on dupixent and triamcinolone Physical Exam - Area(s) Examined: No images are attached to the encounter. The pt is alert and oriented, in NAD. Skin examination of head/face and Abdomen was significant for: Items identified on Diagram above Eczematous plaques of the lower abdomen Assessment / Plan: (L30.9) Eczema, unspecified type (primary encounter diagnosis) (L30.9) Dermatitis Comment: flare at lower abdomen, likely contact dermatitis to belt buckle; otherwise well controlled on dupixent; tolerating well without side effects Plan: dupilumab 300 mg/2 mL subcutaneous syringe (DUPIXENT SYRINGE) triamcinolone acetonide (KENALOG) 0.1 % cream R/b/a for the medication(s) including possible side effects discussed and reviewed with patient. By signing my name below, I, Altagracia Travis MA, attest that this documentation has been prepared under the direction and in the presence of Lauryn DANIELLE. Electronically Signed: Altagracia Travis MA, Scribe. December 21, 2024 2:36 PM. I, Lauryn Sky PA-C, personally performed the services described in this documentation. All medical record entries made by the scribe were at my direction and in my presence. I have reviewed the chart and discharge instructions (if applicable) and agree that the record reflects my personal performance and is accurate and complete. Electronically Signed: Lauryn Sky PA-C December 21, 2024 4:23 PM. Patient to return to clinic in ~6 months or PRN for follow-up re-evaluation Patient to contact office as needed with questions/concerns, unimproved or worsening of symptoms Lauryn Sky PA-C documented in this encounter [facility] 11-25-2024 Telephone encounter Note I only refilled as a covering physician and he has not seen anyone since 2022. He must establish with a new provider. Kathryn Obrien MD [facility] 11-25-2024 Miscellaneous Notes I only refilled as a covering physician and he has not seen anyone since 2022. He must establish with a new provider. Kathryn Obrien MD Patient needs refill of Dupixent Date of Boo Sweeney's last Dermatology office visit: 08/08/2023 Next appointment date: None scheduled Last labs: 05/18/2024 Last TB test: No results found for: TBGRES Requested Prescriptions Pending Prescriptions Disp Refills dupilumab 300 mg/2 mL subcutaneous syringe (DUPIXENT SYRINGE) 4 mL 1 Sig: Inject 1 syringe (300 mg) subcutaneously every 2 weeks Patient prefers: [facility] Thank you! Brii Hoffmann PharmD Clinical Pharmacist, [facility] ; Pool: [facility] Pool #: [id number] documented in this encounter [facility] 11-25-2024 Telephone encounter Note Patient needs refill of Dupixent Date of Boo Sweeney'araceli last Dermatology office visit: 08/08/2023 Next appointment date: None scheduled Last labs: 05/18/2024 Last TB test: No results found for: TBGRES Requested Prescriptions Pending Prescriptions Disp Refills dupilumab 300 mg/2 mL subcutaneous syringe (DUPIXENT SYRINGE) 4 mL 1 Sig: Inject 1 syringe (300 mg) subcutaneously every 2 weeks Patient prefers: [facility] Thank you! Brii Hoffmann PharmD Clinical Pharmacist, [facility] ; Pool: [facility] Pool #: [id number] [facility] 10-31-2024 Hospital Discharg e instructions Patient Education 10/31/2024 00:50:11 Abscess, Antibiotic Treatment Only Abscess (Antibiotic Treatment Only) An abscess (sometimes called a boil ) happens when bacteria get trapped under the skin and start to grow. Pus forms inside the abscess as the body responds to the bacteria. An abscess can happen with an insect bite, ingrown hair, blocked oil gland, pimple, cyst, or puncture wound. In the early stages, your wound may be red and tender. For this stage, you may get antibiotics. If the abscess does not get better with antibiotics, it will need to be drained with a small cut. Home care These tips will help you care for your abscess at home: Soak the wound in hot water or apply hot packs (small towel soaked in hot water) to the area for 20 minutes at a time. Do this 3 to 4 times a day. Do not cut, squeeze, or pop the boil yourself. Apply antibiotic cream or ointment to the skin 3 to 4 times a day, unless something else was prescribed. Some ointments include an antibiotic plus a pain reliever. If your doctor prescribed antibiotics, do not stop taking them until you have finished the medicine or the doctor tells you to stop. You may use an wzxa-wyl-wzuqyfs pain medicine to control pain, unless another pain medicine was prescribed. If you have chronic liver or kidney disease or ever had a stomach ulcer or gastrointestinal bleeding, talk with your doctor before using these any of these. Follow-up care Follow up with your healthcare provider, or as advised. Check your wound each day for the signs of worsening infection listed below. When to seek medical advice Get prompt medical attention if any of these occur: An increase in redness or swelling Red streaks in the skin leading away from the abscess An increase in local pain or swelling Fever of 100.4 F (38 C) or higher, or as directed by your healthcare provider Pus or fluid coming from the abscess Boil returns after getting better [id number] The [employer]. [address] [place] [address]. All rights reserved. This information is not intended as a substitute for professional medical care. Always follow your healthcare professional's instructions. Follow Up Care 10/31/2024 00:24:24 With:[facility] Address: [address] [place] [address]- When:2-4 days With:Follow up with primary care provider Address:Unknown When:2-4 days [facility] 10-31-2024 Emergency department Discharge summary Discharge Instructions Thank you for allowing [facility] to assist you with your healthcare needs. The following is important discharge information regarding your hospital visit. Diagnosis from Today's Visit Nasal abscess What to Do Next Instructions from Your Care Team No qualifying data available. Post Acute Orders No qualifying data available. You Need to Schedule the Following Appointments Follow Up with [facility] When:Within 2-4 days Where:[address] [place] [address]- Follow Up with Follow up with primary care provider When:Within 2-4 days Allergies penicillin Medications Please ask your primary doctor or pharmacist before taking any other medication not listed, including over the counter drugs, herbal medications, vitamins and or supplements as they may interact with your home medications. What How Much When Instructions Last Dose New sulfamethoxazole-trimethoprim (Bactrim DS 800 mg-160 mg oral tablet) 1 tab(s) by mouth Two (2) times a day Duration: 7 Days Pickup at [facility] Pharmacy Information [facility]: [address] [place], [place] [phone] Please take this list to your next doctor s visit. Bring all medications you take, including over the counter medications, herbals and other supplements with you to your doctor s visit. Patients and families are reminded to discard old lists and to update any records with all medication providers or retail pharmacies. Education Materials Abscess (Antibiotic Treatment Only) An abscess (sometimes called a boil ) happens when bacteria get trapped under the skin and start to grow. Pus forms inside the abscess as the body responds to the bacteria. An abscess can happen with an insect bite, ingrown hair, blocked oil gland, pimple, cyst, or puncture wound. In the early stages, your wound may be red and tender. For this stage, you may get antibiotics. If the abscess does not get better with antibiotics, it will need to be drained with a small cut. Home care These tips will help you care for your abscess at home: Soak the wound in hot water or apply hot packs (small towel soaked in hot water) to the area for 20 minutes at a time. Do this 3 to 4 times a day. Do not cut, squeeze, or pop the boil yourself. Apply antibiotic cream or ointment to the skin 3 to 4 times a day, unless something else was prescribed. Some ointments include an antibiotic plus a pain reliever. If your doctor prescribed antibiotics, do not stop taking them until you have finished the medicine or the doctor tells you to stop. You may use an dkrg-uen-oxmxhpo pain medicine to control pain, unless another pain medicine was prescribed. If you have chronic liver or kidney disease or ever had a stomach ulcer or gastrointestinal bleeding, talk with your doctor before using these any of these. Follow-up care Follow up with your healthcare provider, or as advised. Check your wound each day for the signs of worsening infection listed below. When to seek medical advice Get prompt medical attention if any of these occur: An increase in redness or swelling Red streaks in the skin leading away from the abscess An increase in local pain or swelling Fever of 100.4 F (38 C) or higher, or as directed by your healthcare provider Pus or fluid coming from the abscess Boil returns after getting better [phone] [employer]. [address] [place] [address]. All rights reserved. This information is not intended as a substitute for professional medical care. Always follow your healthcare professional's instructions. Additional Information VACCINATE! IT SAVES LIVES! Members of the community who have not yet received the COVID-19 vaccine and would like to receive it can visit one of [facility] vaccine clinics. There are many vaccine clinic locations within the [facility]. For locations and available times, please visit [email or web address] [email or web address] It is important to note that some COVID mobile vaccine clinics are held outdoors and may be canceled in rainy or stormy conditions. To learn more about pediatric vaccinations (ages 5-11), we invite you to visit the [facility] webpage. [email or web address] [email or web address]-[email or web address] ddzaud-Hrfvw-[email or web address] To learn more about the COVID-19 vaccine, we invite you to visit the CDC website for a list of frequently asked questions. https://www.cdc.gov/coronavirus/ 2019-ncov/vaccines/faq.html [facility] Patient [facility] Access Instructions: Stay connected with your healthcare team and access your personal medical information anytime with the [facility] Patient Portal. If you would like a full copy of your medical records please contact the [facility] Medical Records Department Saturday through Saturday between 8a.m. and 4:30p.m. Please follow the directions below to access the portal: 1.Access the email account you provided upon registration to the hospital.2.Look for an invitation email from [facility].3.Open the email and access the invitation link: Accept Invitation to [facility].Fill in the required hopson to create your account. Sign into [email or web address] with your username and password that you created in the above steps to stay up to date. You can then view a summary of results, a summary of your visits, and the ability to download your summaries to your computer or send the information securely to a physician. Remember that your healthcare information is confidential, so carefully consider who you will allow to register on the [facility] Patient Portal for access to your information. You can also access the [facility] Patient Portal on the [employer] roe. Simply click on Health Records under Health Data and then click on the [facility] logo. HOW TO SAFELY DISPOSE OF PRESCRIPTION MEDICATIONS Please use one of the following methods to safely dispose of your unused medications. 1.Use a drug disposal kit: the drug disposal pouch allows you to safely discard your old and unused drugs. Ask your nurse to give you one when you are discharged.2.Visit a local take-back location: Many local pharmacies and police departments have programs that collect old and unwanted prescription drugs. Call your local pharmacy or go to http://[employer]Kite.ly/5J7Hz3m to find one close to you.3.Make use of household items: Use cat litter or old coffee grounds to dispose medications if other options are not available. Mix your drugs with these household products, seal them in an airtight container and throw it into the garbage. Call [facility]: [phone] to be sure your drugs can be disposed of in this way. Some medicines may require a different approach.4.Never flush your medications down the toilet. IF YOU HAVE BEEN PRESCRIBED AN OPIOIDS FOR PAIN If you have been prescribed an opioid (such as hydrocodone, oxycodone or morphine), it is critical to understand the possible side effects and risks of opioid pain medications. Even when taken as directed, opioids can have several side effects including: Tolerance, meaning you might need to take more of a medication for the same pain relief. Nausea, vomiting and/or constipation. Sleepiness, dizziness, dry mouth, confusion, depression or itching. Physical dependence, meaning you have withdrawal symptoms when a medication is stopped ? this can develop within a few days. KNOW YOUR RESPONSIBILITIES It is important to know exactly how much and how often to take the opioid pain medications you are prescribed. Never take opioids in higher amounts or more often than prescribed. Do not combine opioids with alcohol or other drugs that cause drowsiness, such as benzodiazepines, also known as benzos, including diazepam and alprazolam, muscle relaxants or sleep aids. Never sell or share prescription opioids. This is illegal. Store opioids in a secure place and out of reach of others (including children, family, friends and visitors). The last page(s) of this document has been signed and retained as a CHART COPY Signatures Patient Education Materials Abscess, Antibiotic Treatment Only Medication Leaflets My discharge plan and instructions have been reviewed and explained to me and I,BOO SWEENEY understand my current condition and have read and understand these discharge instructions. I have received a written copy of the plan/instructions. If I have questions, I am aware that I should contact my doctor. 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 Service: ? Author Type: ? Type: Progress Notes Filed: 10/23/2024 09:36 Note Text: [facility] Refill Assessment Medication(s): Dupixent Patient's current medication list and adherence status to current therapy were reviewed by Specialty Pharmacy clinical pharmacist to identify any new drug interactions or non-compliance to therapy. Therapy continues to be appropriate for disease, patient response, and medical condition. Verification of therapeutic benefit and effectiveness with current therapy was completed. Adverse events, barriers in adherence, and side effects were assessed and addressed if applicable. Will proceed with refill with no changes in therapy - patient progressing towards achieving therapeutic goals based on medication-specific laboratory parameters, disease state markers and outcomes. Office/provider notes have been reviewed prior to dispensing the medication. [facility] Assessment Patient confirmed: Yes Med/dose confirmed: Yes Supplies needed: No supplies needed Missed doses: No Estimated days supply on hand: 0 Next cycle/dose due: 11/04/24 Copay amount: 0 Payment confirmed: Yes Delivery method: FedEx Signature required: Waived on patient request Delivery address: [address] [place] [address] Delivery date: 10/27/24 Questions or concerns for the pharmacist?: No Did you have any side effects believed to be related to this medication, that resulted in hospitalization?: No Current Outpatient Medications on File Prior to Visit Medication Sig dupilumab 300 mg/2 mL subcutaneous syringe (DUPIXENT SYRINGE) Inject 1 syringe (300 mg) subcutaneously every 2 weeks triamcinolone acetonide (KENALOG) 0.1 % cream Apply to affected areas twice daily Saturday-Saturday as needed. Avoid face, groin, and armpits ketoconazole (NIZORAL) 2 % shampoo Use as a body wash once daily for 4 weeks. After 4 weeks, decrease use to once per week as maintenance No current facility-administered medications on file prior to visit. [facility]TY CLINICAL ASSESSMENT - INFLAMMATORY CONDITIONS V6: Assessment to use: Refill Date of influenza vaccination reminder: 07/13/2024 Date of most recent vaccination assessment: 07/13/2024 Treatment Plan Information: Dupxient 300mg/2mL syringe Inject 1 syringe (300 mg) subcutaneously every 2 weeks L30.9 Dermatitis Est. Tx Plan Start Date: No information available Estimated Start Date Info: No information available Est. Estimated Treatment Duration: Until loss of efficacy and/or no longer tolerated. Rema Aguilar CPhT [facility] 10-23-2024 Note HNO ID: [id number] Author: SIS ROBLEDO RPh Service: ? Author Type: ? Type: Progress Notes Filed: 12/11/2024 08:12 Note Text: Attestation signed by Sis Robledo [facility] at 12/11/2024 8:12 AM Pt aware he needs appt. Sis Robledo PharmD Clinical Pharmacist, [employer] [facility] ; Pool: [facility] Pool #: [id number] [facility] Discontinuation Assessment: Disease group: Inflammatory Medication: DUPIXENT SYRINGE SUBCUTANEOUS Discontinue reason: Other Patient needs office visit for refills. Rema Aguilar pediatric physical therapy assistant [facility] 09-10-2024 Telephone encounter Note Refill sent today. Duplicate. Elmira Monge RN [facility] 09-10-2024 Miscellaneous Notes Refill sent today. Duplicate. Elmira Monge RN documented in this encounter [facility] 09-10-2024 History of Presen t illness Narrative [facility] Specialty Refill Assessment Medication(s): Dupixent Patient's current medication list and adherence status to current therapy were reviewed by Specialty Pharmacy clinical pharmacist to identify any new drug interactions or non-compliance to therapy. Therapy continues to be appropriate for disease, patient response, and medical condition. Verification of therapeutic benefit and effectiveness with current therapy was completed. Adverse events, barriers in adherence, and side effects were assessed and addressed if applicable. Will proceed with refill with no changes in therapy - patient progressing towards achieving therapeutic goals based on medication-specific laboratory parameters, disease state markers and outcomes. Office/provider notes have been reviewed prior to dispensing the medication. [facility] Assessment Patient confirmed: Yes Med/dose confirmed: Yes Supplies needed: No supplies needed Missed doses: No Estimated days supply on hand: 1 Next cycle/dose due: 09/20/24 Copay amount: 0 Payment confirmed: Yes Delivery method: FedEx Signature required: Waived on patient request Delivery address: [address] [place], [place] [id number] Delivery date: 09/22/24 Questions or concerns for the pharmacist?: No Did you have any side effects believed to be related to this medication, that resulted in hospitalization?: No Current Outpatient Medications on File Prior to Visit Medication Sig dupilumab 300 mg/2 mL subcutaneous syringe (DUPIXENT SYRINGE) Inject 1 syringe (300 mg) subcutaneously every 2 weeks triamcinolone acetonide (KENALOG) 0.1 % cream Apply to affected areas twice daily Saturday-Saturday as needed. Avoid face, groin, and armpits ketoconazole (NIZORAL) 2 % shampoo Use as a body wash once daily for 4 weeks. After 4 weeks, decrease use to once per week as maintenance No current facility-administered medications on file prior to visit. [facility] CLINICAL ASSESSMENT - INFLAMMATORY CONDITIONS V6: Assessment to use: Refill Date of influenza vaccination reminder: 07/13/2024 Date of most recent vaccination assessment: 07/13/2024 Treatment Plan Information: Dupxient 300mg/2mL syringe Inject 1 syringe (300 mg) subcutaneously every 2 weeks L30.9 Dermatitis Est. Tx Plan Start Date: No information available Estimated Start Date Info: No information available Est. Estimated Treatment Duration: Until loss of efficacy and/or no longer tolerated. Rema Aguilar CPhT [facility] documented in this encounter [facility] 09-10-2024 Note HNO ID: [id number] Author: SIS ROBLEDO RPh Service: ? Author Type: ? Type: Progress Notes Filed: 09/14/2024 08:45 Note Text: [facility] Special[facility] Refill Assessment Medication(s): Dupixent Patient's current medication list and adherence status to current therapy were reviewed by Specialty Pharmacy clinical pharmacist to identify any new drug interactions or non-compliance to therapy. Therapy continues to be appropriate for disease, patient response, and medical condition. Verification of therapeutic benefit and effectiveness with current therapy was completed. Adverse events, barriers in adherence, and side effects were assessed and addressed if applicable. Will proceed with refill with no changes in therapy - patient progressing towards achieving therapeutic goals based on medication-specific laboratory parameters, disease state markers and outcomes. Office/provider notes have been reviewed prior to dispensing the medication. Sis Robledo PharmD Clinical Pharmacist, [employer] [facility] ; Pool: P [facility] Pool #: [id number] [facility] Assessment Patient confirmed: Yes Med/dose confirmed: Yes Supplies needed: No supplies needed Missed doses: No Estimated days supply on hand: 1 Next cycle/dose due: 09/20/24 Copay amount: 0 Payment confirmed: Yes Delivery method: FedEx Signature required: Waived on patient request Delivery address: [address] [place] [address] Delivery date: 09/22/24 Questions or concerns for the pharmacist?: No Did you have any side effects believed to be related to this medication, that resulted in hospitalization?: No Current Outpatient Medications on File Prior to Visit Medication Sig dupilumab 300 mg/2 mL subcutaneous syringe (DUPIXENT SYRINGE) Inject 1 syringe (300 mg) subcutaneously every 2 weeks triamcinolone acetonide (KENALOG) 0.1 % cream Apply to affected areas twice daily Saturday-Saturday as needed. Avoid face, groin, and armpits ketoconazole (NIZORAL) 2 % shampoo Use as a body wash once daily for 4 weeks. After 4 weeks, decrease use to once per week as maintenance No current facility-administered medications on file prior to visit. [facility] CLINICAL ASSESSMENT - INFLAMMATORY CONDITIONS V6: Assessment to use: Refill Assessment of injection issues: Yes Infection screening, including annual TB assessment when applicable to medication: Yes Current medication list (including drug interaction assessment): Yes Experience of adverse reactions to the medication: Yes Date of influenza vaccination reminder: 07/13/2024 Date of most recent vaccination assessment: 07/13/2024 Treatment Plan Information: Dupxient 300mg/2mL syringe Inject 1 syringe (300 mg) subcutaneously every 2 weeks L30.9 Dermatitis Est. Tx Plan Start Date: No information available Estimated Start Date Info: No information available Est. Estimated Treatment Duration: Until loss of efficacy and/or no longer tolerated. Rema Aguilar CPhT [facility] 09-10-2024 Telephone encounter Note Will need follow up for additional refills. Kathryn Obrien MD [facility] 09-10-2024 Miscellaneous Notes Will need follow up for additional refills. Kathryn Obrien MD Patient needs refill of Dupixent Date of Boo Sweeney's last Dermatology office visit: 08/08/23 Next appointment date: None Last labs: 05/18/24 Last TB test: No results found for: TBGRES Requested Prescriptions Pending Prescriptions Disp Refills dupilumab 300 mg/2 mL subcutaneous syringe (DUPIXENT SYRINGE) 4 mL 11 Sig: Inject 1 syringe (300 mg) subcutaneously every 2 weeks Patient prefers: [facility] Thank you! Sis Robledo, PharmD Clinical Pharmacist, [employer] [facility] ; Pool: [facility] Pool #: [id number] documented in this encounter [facility] 09-10-2024 Telephone encounter Note Patient needs refill of Dupixent Date of Boo Sweeney's last Dermatology office visit: 08/08/23 Next appointment date: None Last labs: 05/18/24 Last TB test: No results found for: TBGRES Requested Prescriptions Pending Prescriptions Disp Refills dupilumab 300 mg/2 mL subcutaneous syringe (DUPIXENT SYRINGE) 4 mL 11 Sig: Inject 1 syringe (300 mg) subcutaneously every 2 weeks Patient prefers: [facility] Thank you! Sis Robledo, PharmD Clinical Pharmacist, [employer] [facility] ; Pool: P [facility] Pool #: [id number] [facility] 08-05-2024 History of Presen t illness Narrative [facility] Refill Assessment Medication(s): Dupixent Patient's current medication list and adherence status to current therapy were reviewed by Specialty Pharmacy clinical pharmacist to identify any new drug interactions or non-compliance to therapy. Therapy continues to be appropriate for disease, patient response, and medical condition. Verification of therapeutic benefit and effectiveness with current therapy was completed. Adverse events, barriers in adherence, and side effects were assessed and addressed if applicable. Will proceed with refill with no changes in therapy - patient progressing towards achieving therapeutic goals based on medication-specific laboratory parameters, disease state markers and outcomes. Office/provider notes have been reviewed prior to dispensing the medication. [facility] [employer] [facility] Assessment Patient confirmed: Yes Med/dose confirmed: Yes Supplies needed: No supplies needed Missed doses: No Estimated days supply on hand: 0 Next cycle/dose due: 08/21/24 Copay amount: 0 Payment confirmed: Yes Delivery method: FedEx Signature required: No Delivery address: [address] [place], [place] [phone] Delivery date: 08/12/24 Questions or concerns for the pharmacist?: No Did you have any side effects believed to be related to this medication, that resulted in hospitalization?: No Current Outpatient Medications on File Prior to Visit Medication Sig dupilumab 300 mg/2 mL subcutaneous syringe (DUPIXENT SYRINGE) Inject 1 syringe (300 mg) subcutaneously every 2 weeks triamcinolone acetonide (KENALOG) 0.1 % cream Apply to affected areas twice daily Saturday-Saturday as needed. Avoid face, groin, and armpits ketoconazole (NIZORAL) 2 % shampoo Use as a body wash once daily for 4 weeks. After 4 weeks, decrease use to once per week as maintenance No current facility-administered medications on file prior to visit. [facility] CLINICAL ASSESSMENT - INFLAMMATORY CONDITIONS V6: Assessment to use: Refill Date of influenza vaccination reminder: 07/13/2024 Date of most recent vaccination assessment: 07/13/2024 Treatment Plan Information: Dupxient 300mg/2mL syringe Inject 1 syringe (300 mg) subcutaneously every 2 weeks L30.9 Dermatitis Est. Tx Plan Start Date: No information available Estimated Start Date Info: No information available Est. Estimated Treatment Duration: Until loss of efficacy and/or no longer tolerated. Rema Aguilar CPhT [facility] documented in this encounter [facility] 08-05-2024 Note HNO ID: [id number] Author: ISS ROBLEDO RPh Service: ? Author Type: ? Type: Progress Notes Filed: 08/10/2024 14:19 Note Text: [facility] Refill Assessment Medication(s): Dupixent Patient's current medication list and adherence status to current therapy were reviewed by Specialty Pharmacy clinical pharmacist to identify any new drug interactions or non-compliance to therapy. Therapy continues to be appropriate for disease, patient response, and medical condition. Verification of therapeutic benefit and effectiveness with current therapy was completed. Adverse events, barriers in adherence, and side effects were assessed and addressed if applicable. Will proceed with refill with no changes in therapy - patient progressing towards achieving therapeutic goals based on medication-specific laboratory parameters, disease state markers and outcomes. Office/provider notes have been reviewed prior to dispensing the medication. Sis Robledo PharmD Clinical Pharmacist, [employer] [facility] ; Pool: [facility] Pool #: [id number] [facility] [employer] [facility] Assessment Patient confirmed: Yes Med/dose confirmed: Yes Supplies needed: No supplies needed Missed doses: No Estimated days supply on hand: 0 Next cycle/dose due: 08/21/24 Copay amount: 0 Payment confirmed: Yes Delivery method: FedEx Signature required: No Delivery address: [address] [place] [id number] Delivery date: 08/12/24 Questions or concerns for the pharmacist?: No Did you have any side effects believed to be related to this medication, that resulted in hospitalization?: No Current Outpatient Medications on File Prior to Visit Medication Sig dupilumab 300 mg/2 mL subcutaneous syringe (DUPIXENT SYRINGE) Inject 1 syringe (300 mg) subcutaneously every 2 weeks triamcinolone acetonide (KENALOG) 0.1 % cream Apply to affected areas twice daily Saturday-Saturday as needed. Avoid face, groin, and armpits ketoconazole (NIZORAL) 2 % shampoo Use as a body wash once daily for 4 weeks. After 4 weeks, decrease use to once per week as maintenance No current facility-administered medications on file prior to visit. [facility] CLINICAL ASSESSMENT - INFLAMMATORY CONDITIONS V6: Assessment to use: Refill Assessment of injection issues: Yes Infection screening, including annual TB assessment when applicable to medication: Yes Current medication list (including drug interaction assessment): Yes Experience of adverse reactions to the medication: Yes Date of influenza vaccination reminder: 07/13/2024 Date of most recent vaccination assessment: 07/13/2024 Treatment Plan Information: Dupxient 300mg/2mL syringe Inject 1 syringe (300 mg) subcutaneously every 2 weeks L30.9 Dermatitis Est. Tx Plan Start Date: No information available Estimated Start Date Info: No information available Est. Estimated Treatment Duration: Until loss of efficacy and/or no longer tolerated. Rema Aguilar CPhT [facility] 07-10-2024 History of Presen t illness Narrative [facility] Refill Assessment Medication(s): Dupixent Patient's current medication list and adherence status to current therapy were reviewed by Specialty Pharmacy clinical pharmacist to identify any new drug interactions or non-compliance to therapy. Therapy continues to be appropriate for disease, patient response, and medical condition. Verification of therapeutic benefit and effectiveness with current therapy was completed. Adverse events, barriers in adherence, and side effects were assessed and addressed if applicable. Will proceed with refill with no changes in therapy - patient progressing towards achieving therapeutic goals based on medication-specific laboratory parameters, disease state markers and outcomes. Office/provider notes have been reviewed prior to dispensing the medication. [facility] [employer] [facility] Assessment Patient confirmed: Yes Med/dose confirmed: Yes Supplies needed: No supplies needed Missed doses: No Estimated days supply on hand: 0 Next cycle/dose due: 07/23/24 Copay amount: 0 Payment confirmed: Yes Delivery method: FedEx Signature required: Waived on patient request Delivery address: [address] [place] [id number] Delivery date: 07/15/24 Questions or concerns for the pharmacist?: No Did you have any side effects believed to be related to this medication, that resulted in hospitalization?: No Current Outpatient Medications on File Prior to Visit Medication Sig dupilumab 300 mg/2 mL subcutaneous syringe (DUPIXENT SYRINGE) Inject 1 syringe (300 mg) subcutaneously every 2 weeks triamcinolone acetonide (KENALOG) 0.1 % cream Apply to affected areas twice daily Saturday-Saturday as needed. Avoid face, groin, and armpits ketoconazole (NIZORAL) 2 % shampoo Use as a body wash once daily for 4 weeks. After 4 weeks, decrease use to once per week as maintenance No current facility-administered medications on file prior to visit. [facility] CLINICAL ASSESSMENT - INFLAMMATORY CONDITIONS V6: Assessment to use: Refill Date of influenza vaccination reminder: 08/12/2023 Date of most recent vaccination assessment: 08/12/2023 Treatment Plan Information: Dupxient 300mg/2mL syringe Inject 1 syringe (300 mg) subcutaneously every 2 weeks L30.9 Dermatitis Est. Tx Plan Start Date: No information available Estimated Start Date Info: No information available Est. Estimated Treatment Duration: Until loss of efficacy and/or no longer tolerated. Rema Aguilar CPhT [facility] documented in this encounter [facility] 07-10-2024 Note HNO ID: [id number] Author: SIS ROBLEDO RPh Service: ? Author Type: ? Type: Progress Notes Filed: 07/13/2024 16:55 Note Text: [facility] Refill Assessment Medication(s): Dupixent Patient's current medication list and adherence status to current therapy were reviewed by Specialty Pharmacy clinical pharmacist to identify any new drug interactions or non-compliance to therapy. Therapy continues to be appropriate for disease, patient response, and medical condition. Verification of therapeutic benefit and effectiveness with current therapy was completed. Adverse events, barriers in adherence, and side effects were assessed and addressed if applicable. Will proceed with refill with no changes in therapy - patient progressing towards achieving therapeutic goals based on medication-specific laboratory parameters, disease state markers and outcomes. Office/provider notes have been reviewed prior to dispensing the medication. Sis Robledo PharmD Clinical Pharmacist, [employer] [facility] ; Pool: [facility] Pool #: [id number] [facility] [employer] [facility] Assessment Patient confirmed: Yes Med/dose confirmed: Yes Supplies needed: No supplies needed Missed doses: No Estimated days supply on hand: 0 Next cycle/dose due: 07/23/24 Copay amount: 0 Payment confirmed: Yes Delivery method: FedEx Signature required: Waived on patient request Delivery address: [address] [place] [address] Delivery date: 07/15/24 Questions or concerns for the pharmacist?: No Did you have any side effects believed to be related to this medication, that resulted in hospitalization?: No Current Outpatient Medications on File Prior to Visit Medication Sig dupilumab 300 mg/2 mL subcutaneous syringe (DUPIXENT SYRINGE) Inject 1 syringe (300 mg) subcutaneously every 2 weeks triamcinolone acetonide (KENALOG) 0.1 % cream Apply to affected areas twice daily Saturday-Saturday as needed. Avoid face, groin, and armpits ketoconazole (NIZORAL) 2 % shampoo Use as a body wash once daily for 4 weeks. After 4 weeks, decrease use to once per week as maintenance No current facility-administered medications on file prior to visit. [facility] SPECIALTY CLINICAL ASSESSMENT - INFLAMMATORY CONDITIONS V6: Assessment to use: Refill Assessment of injection issues: Yes Infection screening, including annual TB assessment when applicable to medication: Yes Current medication list (including drug interaction assessment): Yes Experience of adverse reactions to the medication: Yes Date of influenza vaccination reminder: 08/12/2023 Date of most recent vaccination assessment: 08/12/2023 Treatment Plan Information: Dupxient 300mg/2mL syringe Inject 1 syringe (300 mg) subcutaneously every 2 weeks L30.9 Dermatitis Est. Tx Plan Start Date: No information available Estimated Start Date Info: No information available Est. Estimated Treatment Duration: Until loss of efficacy and/or no longer tolerated. Rema Aguilar CPhT [facility] 06-02-2024 History of Presen t illness Narrative [facility] Refill Assessment Medication(s): Dupixent Patient's current medication list and adherence status to current therapy were reviewed by Specialty Pharmacy clinical pharmacist to identify any new drug interactions or non-compliance to therapy. Therapy continues to be appropriate for disease, patient response, and medical condition. Verification of therapeutic benefit and effectiveness with current therapy was completed. Adverse events, barriers in adherence, and side effects were assessed and addressed if applicable. Will proceed with refill with no changes in therapy - patient progressing towards achieving therapeutic goals based on medication-specific laboratory parameters, disease state markers and outcomes. [facility] [employer] [facility] Assessment Patient confirmed: Yes Med/dose confirmed: Yes Supplies needed: No supplies needed Missed doses: No Estimated days supply on hand: 1 Next cycle/dose due: 06/02/24 Copay amount: 0 Payment confirmed: Yes Delivery method: FedEx Signature required: Waived on patient request Delivery address: [address] [place] [address] Delivery date: 06/05/24 Questions or concerns for the pharmacist?: No Did you have any side effects believed to be related to this medication, that resulted in hospitalization?: No Current Outpatient Medications on File Prior to Visit Medication Sig dupilumab 300 mg/2 mL subcutaneous syringe (DUPIXENT SYRINGE) Inject 1 syringe (300 mg) subcutaneously every 2 weeks triamcinolone acetonide (KENALOG) 0.1 % cream Apply to affected areas twice daily Saturday-Saturday as needed. Avoid face, groin, and armpits ketoconazole (NIZORAL) 2 % shampoo Use as a body wash once daily for 4 weeks. After 4 weeks, decrease use to once per week as maintenance No current facility-administered medications on file prior to visit. [facility] CLINICAL ASSESSMENT - INFLAMMATORY CONDITIONS V6: Assessment to use: Refill Date of influenza vaccination reminder: 08/12/2023 Date of most recent vaccination assessment: 08/12/2023 Treatment Plan Information: Dupxient 300mg/2mL syringe Inject 1 syringe (300 mg) subcutaneously every 2 weeks L30.9 Dermatitis Est. Tx Plan Start Date: No information available Estimated Start Date Info: No information available Est. Estimated Treatment Duration: Until loss of efficacy and/or no longer tolerated. Rema Aguilar CPhT [facility] documented in this encounter [facility] 05-12-2024 History of Presen t illness Narrative [facility] Refill Assessment Medication(s): Dupixent Patient's current medication list and adherence status to current therapy were reviewed by Specialty Pharmacy clinical pharmacist to identify any new drug interactions or non-compliance to therapy. Therapy continues to be appropriate for disease, patient response, and medical condition. Verification of therapeutic benefit and effectiveness with current therapy was completed. Adverse events, barriers in adherence, and side effects were assessed and addressed if applicable. Will proceed with refill with no changes in therapy - patient progressing towards achieving therapeutic goals based on medication-specific laboratory parameters, disease state markers and outcomes. [facility] Assessment Patient confirmed: Yes Med/dose confirmed: Yes Supplies needed: No supplies needed Missed doses: No Estimated days supply on hand: 1 Next cycle/dose due: 05/15/24 Copay amount: 0 Payment confirmed: Yes Delivery method: FedEx Signature required: No Delivery address: [address] [place] [id number] Delivery date: 05/20/24 Questions or concerns for the pharmacist?: No Did you have any side effects believed to be related to this medication, that resulted in hospitalization?: No Current Outpatient Medications on File Prior to Visit Medication Sig dupilumab 300 mg/2 mL subcutaneous syringe (DUPIXENT SYRINGE) Inject 1 syringe (300 mg) subcutaneously every 2 weeks triamcinolone acetonide (KENALOG) 0.1 % cream Apply to affected areas twice daily Saturday-Saturday as needed. Avoid face, groin, and armpits ketoconazole (NIZORAL) 2 % shampoo Use as a body wash once daily for 4 weeks. After 4 weeks, decrease use to once per week as maintenance No current facility-administered medications on file prior to visit. [facility]ICAL ASSESSMENT - INFLAMMATORY CONDITIONS V6: Assessment to use: Refill [facility] VACCINE INFORMATION [facility] TREATMENT PLAN INFORMATION Rema Aguilar CPhT [facility] documented in this encounter [facility] 05-06-2024 History of Presen t illness Narrative 05/06/2024 Patient presents with: Blurry Vision Both Eyes: Feelings of about to pass out, headaches. SUBJECTIVE: This is a 53 year old that is here today for Above Complaints.. Reports has had some blurry vision on/off. Normally happens when working in hot weather. Makes him feel like he may pass out. Last about 2-3 minutes. Just started working outside and this has happened to him a couple times in the last moth. Sometimes will get headaches when it is hot and when he cools down they resolve. Admits to feeling fatigued and his left arm feels weaker. Denies hx of syncope, double vision, dizziness,slurred speech, facial drooping, SOB, dyspnea, chest pain, palpitations, extremity numbness or tingling. Reports he has a hx aortic aneurysm that it about 4 cm and he was to follow up years ago. Denies chest, abdominal or back pain. PAST MEDICAL HISTORY Diagnosis Date Mild dilation of ascending aorta (HCC) 04/09/2018 Smoker 12/27/2015 Started at age 17, 1PPD ALLERGIES Penicillins MEDICATIONS Current Outpatient Medications Medication Sig dupilumab 300 mg/2 mL subcutaneous syringe (DUPIXENT SYRINGE) Inject 1 syringe (300 mg) subcutaneously every 2 weeks triamcinolone acetonide (KENALOG) 0.1 % cream Apply to affected areas twice daily Saturday-Saturday as needed. Avoid face, groin, and armpits ketoconazole (NIZORAL) 2 % shampoo Use as a body wash once daily for 4 weeks. After 4 weeks, decrease use to once per week as maintenance triamcinolone acetonide (KENALOG) 0.1 % cream Apply 1 application to affected area twice daily. Apply to affected area. Location: rash eqlsaisd-uvalhtewn-ywznkqzpmgbji e (CORTISPORIN) 3.5-10,000-1 mg/mL-unit/mL-% otic suspension Use 3 Drops in both ears four times daily. (Patient not taking: Reported on 01/04/2022 ) predniSONE (DELTASONE) 10 mg tablet Take 4 tabs daily for 3 days, then 2 tabs daily for 3 days, then 1 tab daily for 3 days with food. (Patient not taking: Reported on 01/04/2022 ) ibuprofen (MOTRIN) 600 mg tablet Take 1 tablet by mouth every 6 hours as needed for pain. (Patient not taking: Reported on 01/04/2022 ) No current facility-administered medications for this visit. Medications and allergies reviewed by this provider. SOCIAL HISTORY Social History Tobacco Use Smoking status: Every Day Packs/day: 1.00 Years: 25.00 Additional pack years: 0.00 Total pack years: 25.00 Types: Cigarettes Smokeless tobacco: Never Substance Use Topics Alcohol use: Yes Alcohol/week: 12.0 standard drinks of alcohol Types: 12 Cans of Beer (12oz) per week Drug use: No REVIEW OF SYSTEMS All other reviewed and negative other than HPI. OBJECTIVE: BP 112/86 Pulse 105 Resp 18 Ht 184.8 cm (6' 0.76) Wt 107.5 kg (237 lb) SpO2 93% BMI 31.48 kg/m . Vital signs reviewed by this provider. APPEARANCE Well appearing, alert, in no acute distress, well-hydrated, well nourished. EYES PERRLA, conjunctiva and sclera normal. NECK Supple, no adenopathy; thyroid symmetric, normal size, no bruits HEART RRR with normal S1 and S2, no murmurs, no gallops, no JVD appreciated LUNG clear to auscultation. No wheezes, rhonchi or rales EXTREMITIES Extremities normal, No deformities, No skin discoloration, and No edema NEURO Awake, alert and oriented x 3, Cranial nerves II-XII grossly intact, Reflexes symmetrical, Normal gait, No involuntary motions., and negative findings: speech normal, mental status intact, gait, including heel, toe, and tandem walking normal, Romberg negative, muscle tone normal, muscle strength normal, rapid alternating movements normal, finger to nose normal, sensation to light touch and pinprick normal, reflexes normal and symmetric, plantar response downgoing bilaterally SKIN Skin color, texture, turgor normal, no suspicious rashes or lesions to exposed skin Pneumococcal Vaccine(1 of 2 - PCV) Never done Hepatitis C Screening Never done HIV Screening Never done DTaP,Tdap,Td Vaccine(1 - Tdap) Never done Hepatitis B Vaccine(1 of 3 - 19+ 3-dose series) Never done Lipid Screening Never done Colorectal Cancer Screening Never done Diabetes Screening due on 07/24/2019 Lung Cancer Screening Never done Shingrix Vaccine(1 of 2) Never done Covid-19 Vaccine( - season) Never done Behavioral Health Screening Never done Influenza Vaccine(1) due on 06/21/2024 ASSESSMENT/PLAN: 1. Near syncope - ICD9: 780.2, ICD10: R55 (primary diagnosis) - likely related to dehydration since this is occurring on hot days - discussed adequate hydration with water and Gatorade - no red flag symptoms or exam findings - red flag symptoms discussed, verbalizes understanding - ECG COMPLETE- normal in office today - COMPREHENSIVE METABOLIC PANEL - COMPLETE BLOOD COUNT AND DIFFERENTIAL - ECG COMPLETE - US CAROTID ARTERIES [facility] - follow-up pending testing to ER with red flag symptoms 2. Screening for hyperlipidemia - ICD9: V77.91, ICD10: Z13.220 - LIPID PANEL BASIC 3. Mild dilation of ascending aorta (HCC) - ICD9: 447.71, ICD10: I77.810 - ECHO - PERFLUTREN LIPID MICROSPHERES 1.1 MG/ML INJECTION IN NS 10 ML - SODIUM CHLORIDE 0.9 % (FLUSH) INJECTION SYRINGE 4. Fatigue, unspecified type - ICD9: 780.79, ICD10: R53.83 - consider anemia vs thyroid vs electrolyte imbalance - COMPREHENSIVE METABOLIC PANEL - COMPLETE BLOOD COUNT AND DIFFERENTIAL - THYROID STIMULATING HORMONE 5. Blurry vision - ICD9: 368.8, ICD10: H53.8 - plan as in #1 - recommend he get complete eye exam - ECG COMPLETE - COMPREHENSIVE METABOLIC PANEL - COMPLETE BLOOD COUNT AND DIFFERENTIAL - ECG COMPLETE - US CAROTID ARTERIES [facility] Leida Podlogmary kate, [employer] Prescription instructions reviewed with patient as applicable. Patient advised if symptoms do not improve or if symptoms worsen sooner, to contact their primary care physician. Potential red flag symptoms discussed with the patient. Reviewed appropriate action plan to take if red flag symptoms occur. Patient agreeable to treatment plan. Medical Decision Making: Problems: Moderate: New problem with uncertain prognosis Data: Unique test(s) ordered: 3+ Risk: Moderate: Moderate risk from testing/treatment Medical Decision Making Level: 4 - Moderate documented in this encounter [facility] 04-06-2024 History of Presen t illness Narrative [facility] Refill Assessment Medication(s): Dupixent Patient's current medication list and adherence status to current therapy were reviewed by Specialty Pharmacy clinical pharmacist to identify any new drug interactions or non-compliance to therapy. Therapy continues to be appropriate for disease, patient response, and medical condition. Verification of therapeutic benefit and effectiveness with current therapy was completed. Adverse events, barriers in adherence, and side effects were assessed and addressed if applicable. Will proceed with refill with no changes in therapy - patient progressing towards achieving therapeutic goals based on medication-specific laboratory parameters, disease state markers and outcomes. [facility] Assessment Patient confirmed: Yes Med/dose confirmed: Yes Supplies needed: No supplies needed Missed doses: No Estimated days supply on hand: 0 Next cycle/dose due: 04/20/24 Copay amount: 0 Payment confirmed: Yes Delivery method: FedEx Signature required: Waived on patient request Delivery address: [address] [place] [address] Delivery date: 04/09/24 Questions or concerns for the pharmacist?: No Current Outpatient Medications on File Prior to Visit Medication Sig dupilumab 300 mg/2 mL subcutaneous syringe (DUPIXENT SYRINGE) Inject 1 syringe (300 mg) subcutaneously every 2 weeks triamcinolone acetonide (KENALOG) 0.1 % cream Apply to affected areas twice daily Saturday-Saturday as needed. Avoid face, groin, and armpits ketoconazole (NIZORAL) 2 % shampoo Use as a body wash once daily for 4 weeks. After 4 weeks, decrease use to once per week as maintenance triamcinolone acetonide (KENALOG) 0.1 % cream Apply 1 application to affected area twice daily. Apply to affected area. Location: rash wrqnfrhx-sdymcuzim-ijfznwwqbapxj e (CORTISPORIN) 3.5-10,000-1 mg/mL-unit/mL-% otic suspension Use 3 Drops in both ears four times daily. (Patient not taking: Reported on 01/04/2022 ) predniSONE (DELTASONE) 10 mg tablet Take 4 tabs daily for 3 days, then 2 tabs daily for 3 days, then 1 tab daily for 3 days with food. (Patient not taking: Reported on 01/04/2022 ) ibuprofen (MOTRIN) 600 mg tablet Take 1 tablet by mouth every 6 hours as needed for pain. (Patient not taking: Reported on 01/04/2022 ) No current facility-administered medications on file prior to visit. [facility] Visit Assessment - Inflammatory Conditions: Assessment to use: Refill Vaccination Assessment: Date of influenza vaccination reminder: 08/12/2023 Date of most recent vaccination assessment: 08/12/2023 Treatment Plan Information: Treatment Plan Information: Dupxient 300mg/2mL syringe Inject 1 syringe (300 mg) subcutaneously every 2 weeks L30.9 Dermatitis Estimated Treatment Duration: Until loss of efficacy and/or no longer tolerated. Rema Aguilar CPhT [facility] documented in this encounter [facility] 01-19-2024 Hospital Discharg e instructions Patient Education 01/19/2024 13:25:23 Chest Pain, Noncardiac Noncardiac Chest Pain Based on your visit today, the healthcare provider doesn t know what is causing your chest pain. In most cases, people who come to the emergency department with chest pain don t have a problem with their heart. Instead, the pain is caused by other conditions. It's important for the healthcare team to be sure you are not having a life threatening cause for chest pain such as a heart attack, blood clot in the lungs, collapsed lung, ruptured esophagus, or tearing of the aorta. Once these major causes have been ruled out, you may have further evaluation for non-heart causes of chest pain. These may be problems with the lungs, muscles, bones, digestive tract, nerves, or mental health. Lung problems Inflammation around the lungs (pleurisy) Collapsed lung (pneumothorax) Fluid around the lungs (pleural effusion) Lung cancer (a rare cause of chest pain) Muscle or bone problems Inflamed cartilage between the ribs (costochondritis) Fibromyalgia Rheumatoid arthritis Chest wall strain Digestive system problems Reflux Stomach ulcer Spasms of the esophagus Gall stones Gallbladder inflammation Mental health conditions Panic or anxiety attacks Emotional distress Your condition doesn t seem serious and your pain doesn t appear to be coming from your heart. But sometimes the signs of a serious problem take more time to appear. Watch for the warning signs listed below. Home care Follow these guidelines when caring for yourself at home: Rest today and avoid strenuous activity. Take any prescribed medicine as directed. Follow-up care Follow up with your healthcare provider, or as advised, if you don t start to feel better within 24 hours. When to seek medical advice Call your healthcare provider right away if any of these occur: A change in the type of pain. Call if it feels different, becomes more serious, lasts longer, or begins to spread into your shoulder, arm, neck, jaw, or back. Shortness of breath You feel more pain when you breathe Cough with dark-colored mucus or blood Weakness, dizziness, or fainting Fever of 100.4 F (38 C) or higher, or as directed by your healthcare provider Swelling, pain, or redness in one leg [phone] [employer]. [address] [place] [address]. All rights reserved. This information is not intended as a substitute for professional medical care. Always follow your healthcare professional's instructions. 01/19/2024 13:25:16 Acute Bronchitis Acute Bronchitis Your healthcare provider has told you that you have acute bronchitis. Bronchitis is infection or inflammation of the bronchial tubes (airways in the lungs). Normally, air moves easily in and out of the airways. Bronchitis narrows the airways, making it harder for air to flow in and out of the lungs. This causes symptoms such as shortness of breath, coughing up yellow or green mucus, and wheezing. Bronchitis can be acute or chronic. Acute means the condition comes on quickly and goes away in a short time, usually within 3 to 10 days. Chronic means a condition lasts a long time and often comes back. What causes acute bronchitis? Acute bronchitis almost always starts as a viral respiratory infection, such as a cold or the flu. Certain factors make it more likely for a cold or flu to turn into bronchitis. These include being very young, being elderly, having a heart or lung problem, or having a weak immune system. Cigarette smoking also makes bronchitis more likely. When bronchitis develops, the airways become swollen. The airways may also become infected with bacteria. This is known as a secondary infection. Diagnosing acute bronchitis Your healthcare provider will examine you and ask about your symptoms and health history. You may also have a sputum culture to test the fluid in your lungs. Chest X-rays may be done to look for infection in the lungs. Treating acute bronchitis Bronchitis usually clears up as the cold or flu goes away. You can help feel better faster by doing the following: Take medicine as directed. You may be told to take ibuprofen or other nffk-cms-zmmktgx medicines. These help relieve inflammation in your bronchial tubes. Your healthcare provider may prescribe an inhaler to help open up the bronchial tubes. Most of the time, acute bronchitis is caused by a viral infection. Antibiotics are usually not prescribed for viral infections. Drink plenty of fluids, such as water, juice, or warm soup. Fluids loosen mucus so that you can cough it up. This helps you breathe more easily. Fluids also prevent dehydration. Make sure you get plenty of rest. Do not smoke. Do not allow anyone else to smoke in your home. Recovery and follow-up Follow up with your doctor as you are told. You will likely feel better in a week or two. But a dry cough can linger beyond that time. Let your doctor know if you still have symptoms (other than a dry cough) after 2 weeks, or if you re prone to getting bronchial infections. Take steps to protect yourself from future infections. These steps include stopping smoking and avoiding tobacco smoke, washing your hands often, and getting a yearly flu shot. When to call your healthcare provider Call the healthcare provider if you have any of the following: Fever of 100.4 F (38.0 C) or higher, or as advised Symptoms that get worse, or new symptoms Trouble breathing Symptoms that don t start to improve within a week, or within 3 days of taking antibiotics [id number] [employer]. [address] [place] [address], [place] [address]. All rights reserved. This information is not intended as a substitute for professional medical care. Always follow your healthcare professional's instructions. Follow Up Care 01/19/2024 11:11:02 With:Call ALEJANDRA Phelps Pt. Refferral [phone] Address:Unknown When:2-4 days [facility] Jackelynwilli Freeman 01-19-2024 Emergency department Discharge summary Discharge Instructions Thank you for allowing [facility] to assist you with your healthcare needs. The following is important discharge information regarding your hospital visit. Diagnosis from Today's Visit Chest pain - Pleuritic What to Do Next Instructions from Your Care Team No qualifying data available. Post Acute Orders No qualifying data available. You Need to Schedule the Following Appointments Follow Up with Call ALEJANDRA Phelps Pt. Refferral [phone] When Within 2-4 days Allergies penicillin Medications Please ask your primary doctor or pharmacist before taking any other medication not listed, including over the counter drugs, herbal medications, vitamins and or supplements as they may interact with your home medications. What How Much When Instructions Last Dose New benzonatate (Tessalon Perles 100 mg oral capsule) 1 cap by mouth Three (3) times a day as needed for as needed for cough Duration: 10 Days Printed Prescription New doxycycline (doxycycline hyclate 100 mg oral capsule) 1 cap by mouth Every 12 hours Duration: 10 Days Printed Prescription Please take this list to your next doctor s visit. Bring all medications you take, including over the counter medications, herbals and other supplements with you to your doctor s visit. Patients and families are reminded to discard old lists and to update any records with all medication providers or retail pharmacies. Medication Leaflets benzonatate (shady linares) What is the most important information I should know about benzonatate? Never suck or chew on a benzonatate capsule. Swallow the pill whole. Sucking or chewing the capsule may cause serious side effects. Benzonatate is not approved for use by anyone younger than 10 years old. An overdose of benzonatate can be fatal to a young child. What is benzonatate? Benzonatate is used to relieve coughing. Benzonatate is a non-narcotic cough medicine that numbs the throat and lungs, making the cough reflex less active. Benzonatate may also be used for purposes not listed in this medication guide. What should I discuss with my healthcare provider before taking benzonatate? You should not use this medicine if you are allergic to benzonatate or topical numbing medicines such as tetracaine or procaine (found in some insect bite and sunburn creams). Tell your doctor if you are or . Benzonatate is not approved for use by anyone younger than 10 years old. An overdose of benzonatate can be fatal, especially to a young child who has accidentally swallowed the medicine. How should I take benzonatate? Follow all directions on your prescription label and read all medication guides or instruction sheets. Use the medicine exactly as directed. Never suck or chew on a benzonatate capsule. Swallow the pill whole. Sucking or chewing the capsule may cause serious side effects. Store at room temperature away from moisture, heat, and light. What happens if I miss a dose? Skip the missed dose and use your next dose at the regular time. Do not use two doses at one time. What happens if I overdose? Seek emergency medical attention or call the Poison Help line at . An overdose of benzonatate can be fatal, especially to a child. Accidental has occurred in children under 10 years old. Overdose symptoms may include tremors, feeling restless, seizure (convulsions), slow heart rate, weak pulse, fainting, and slow breathing (breathing may stop). What should I avoid while taking benzonatate? Avoid eating or drinking anything while you feel numbness or tingling in your mouth or throat. What are the possible side effects of benzonatate? Stop taking this medicine and get emergency medical help if you have signs of an allergic reaction: hives; difficult breathing; swelling of your face, lips, tongue, or throat. Call your doctor at once if you have: severe drowsiness or dizziness; confusion, hallucinations. ongoing numbness or tingling in your mouth, throat, or face; numbness in your chest; a choking feeling; chills; or burning in your eyes. Some of these side effects may result from chewing or sucking on a benzonatate capsule. Common side effects may include: headache, dizziness; nausea, upset stomach; constipation; itching, rash; or stuffy nose. This is not a complete list of side effects and others may occur. Call your doctor for medical advice about side effects. You may report side effects to FDA at 1-019-VXV-6125. What other drugs will affect benzonatate? Using benzonatate with other drugs that make you drowsy can worsen this effect. Ask your doctor before using opioid medication, a sleeping pill, a muscle relaxer, or medicine for anxiety or seizures. Other drugs may affect benzonatate, including prescription and ndqo-bou-lnkemfb medicines, vitamins, and herbal products. Tell your doctor about all your current medicines and any medicine you start or stop using. Where can I get more information? Your pharmacist can provide more information about benzonatate. Remember, keep this and all other medicines out of the reach of children, never share your medicines with others, and use this medication only for the indication prescribed. Every effort has been made to ensure that the information provided by [employer]. ('[employer]') is accurate, up-to-date, and complete, but no guarantee is made to that effect. Drug information contained herein may be time sensitive. [employer] information has been compiled for use by healthcare practitioners and consumers in the [place] and therefore [employer] does not warrant that uses outside of the [place] are appropriate, unless specifically indicated otherwise. [employer] drug information does not endorse drugs, diagnose patients or recommend therapy. [employer] drug information is an informational resource designed to assist licensed healthcare practitioners in caring for their patients and/or to serve consumers viewing this service as a supplement to, and not a substitute for, the expertise, skill, knowledge and judgment of healthcare practitioners. The absence of a warning for a given drug or drug combination in no way should be construed to indicate that the drug or drug combination is safe, effective or appropriate for any given patient. [employer] does not assume any responsibility for any aspect of healthcare administered with the aid of information [employer] provides. The information contained herein is not intended to cover all possible uses, directions, precautions, warnings, drug interactions, allergic reactions, or adverse effects. If you have questions about the drugs you are taking, check with your doctor, nurse or pharmacist. Copyright 8848-5329 [employer]. Version: 08.21. Revision Date: 05/23/2023. doxycycline (oral/injection) (DOX i SYE kleen) Acticlate, Adoxa, Alodox, Avidoxy, Doryx, Doryx MPC, Lymepak, Mondoxyne NL, Monodox, Morgidox, Morgidox [id number], Morgidox [id number], Okebo, Oracea, Targadox, Vibramycin, Vibramycin Monohydrate What is the most important information I should know about doxycycline? You should not take this medicine if you are allergic to any tetracycline antibiotic. Children younger than 8 years old should use doxycycline only in cases of severe or life-threatening conditions. This medicine can cause permanent yellowing or graying of the teeth in children Using doxycycline during could harm the unborn baby or cause permanent tooth discoloration later in the baby's life. What is doxycycline? Doxycycline is a tetracycline antibiotic that Doxycycline is used to treat many different bacterial infections, such as acne, urinary tract infections, intestinal infections, eye infections, gonorrhea, chlamydia, periodontitis (gum disease), and others. Doxycycline is also used to treat blemishes, bumps, and acne-like lesions caused by rosacea. Doxycycline will not treat facial redness caused by rosacea. Some forms of doxycycline are used to prevent malaria, to treat anthrax, or to treat infections caused by mites, ticks, or lice. Doxycycline may also be used for purposes not listed in this medication guide. What should I discuss with my healthcare provider before taking doxycycline? You should not take this medicine if you are allergic to doxycycline or other tetracycline antibiotics such as demeclocycline, minocycline, tetracycline, or tigecycline. Tell your doctor if you have ever had: liver disease; kidney disease; asthma or sulfite allergy; increased pressure inside your skull; or if you also take isotretinoin, seizure medicine, or a blood thinner such as warfarin (Coumadin). If you are using doxycycline to treat gonorrhea, your doctor may test you to make sure you do not also have syphilis, another sexually transmitted disease. Taking this medicine during may affect tooth and bone development in the unborn baby. Taking doxycycline during the last half of can cause permanent tooth discoloration later in the baby's life. Tell your doctor if you are or if you become . Doxycycline can make control pills less effective. Ask your doctor about using a non-hormonal control (condom, diaphragm with spermicide) to prevent . Doxycycline can pass into breast milk and may affect bone and tooth development in a nursing infant. Do not breastfeed while you are taking doxycycline. Doxycycline can cause permanent yellowing or graying of the teeth in children younger than 8 years old. Children should use doxycycline only in cases of severe or life-threatening conditions such as anthrax or [place] spotted fever. The benefit of treating a serious condition may outweigh any risks to the child's tooth development. How should I take doxycycline? Follow all directions on your prescription label and read all medication guides or instruction sheets. Use the medicine exactly as directed. Take doxycycline with a full glass of water. Drink plenty of liquids while you are taking doxycycline. Read and carefully follow any Instructions for Use provided with your medicine. Ask your doctor or pharmacist if you do not understand these instructions. Most brands of doxycyline may be taken with food or milk if the medicine upsets your stomach. Different brands of doxycycline may have different instructions about taking them with or without food. Take Oracea on an empty stomach, at least 1 hour before or 2 hours after a meal. You may need to split a doxycycline tablet to get the correct dose. Follow your doctor's instructions. Swallow a delayed-release capsule or tablet whole. Do not crush, chew, break, or open it. Measure liquid medicine with the dosing syringe provided, or with a special dose-measuring spoon or medicine cup. If you do not have a dose-measuring device, ask your pharmacist for one. If you take doxycycline to prevent malaria: Start taking the medicine 1 or 2 days before entering an area where malaria is common. Continue taking the medicine every day during your stay and for at least 4 weeks after you leave the area. Doxycycline is usually given by injection only if you are unable to take the medicine by mouth. A healthcare provider will give you this injection as an infusion into a vein. Use this medicine for the full prescribed length of time, even if your symptoms quickly improve. Skipping doses can increase your risk of infection that is resistant to medication. Doxycycline will not treat a viral infection such as the flu or a common cold. Store at room temperature away from moisture, heat, and light. Throw away any unused medicine after the expiration date on the label has passed. Using doxycycline can cause damage to your kidneys. What happens if I miss a dose? Take the medicine as soon as you can, but skip the missed dose if it is almost time for your next dose. Do not take two doses at one time. What happens if I overdose? Seek emergency medical attention or call the Poison Help line at . What should I avoid while taking doxycycline? Do not take iron supplements, multivitamins, calcium supplements, antacids, or laxatives within 2 hours before or after taking doxycycline. Avoid taking any other antibiotics with doxycycline unless your doctor has told you to. Doxycycline could make you sunburn more easily. Avoid sunlight or tanning beds. Wear protective clothing and use sunscreen (SPF 30 or higher) when you are outdoors. Antibiotic medicines can cause diarrhea, which may be a sign of a new infection. If you have diarrhea that is watery or bloody, call your doctor. Do not use anti-diarrhea medicine unless your doctor tells you to. What are the possible side effects of doxycycline? Get emergency medical help if you have signs of an allergic reaction (hives, difficult breathing, swelling in your face or throat) or a severe skin reaction (fever, sore throat, burning in your eyes, skin pain, red or purple skin rash that spreads and causes blistering and peeling). Seek medical treatment if you have a serious drug reaction that can affect many parts of your body. Symptoms may include: skin rash, fever, swollen glands, flu-like symptoms, muscle aches, severe weakness, unusual bruising, or yellowing of your skin or eyes. This reaction may occur several weeks after you began using doxycycline. Call your doctor at once if you have: severe stomach pain, diarrhea that is watery or bloody; throat irritation, trouble swallowing; chest pain, irregular heart rhythm, feeling short of breath; little or no urination; low white blood cell counts--fever, chills, swollen glands, body aches, weakness, pale skin, easy bruising or bleeding; increased pressure inside the skull--severe headaches, ringing in your ears, dizziness, nausea, vision problems, pain behind your eyes; or signs of liver or pancreas problems--loss of appetite, upper stomach pain (that may spread to your back), tiredness, nausea or vomiting, fast heart rate, dark urine, jaundice (yellowing of the skin or eyes). Common side effects may include: nausea, vomiting, upset stomach, loss of appetite; mild diarrhea; skin rash or itching; darkened skin color; or vaginal itching or discharge. This is not a complete list of side effects and others may occur. Call your doctor for medical advice about side effects. You may report side effects to FDA at 2-072-CAA-8066. What other drugs will affect doxycycline? Sometimes it is not safe to use certain medications at the same time. Some drugs can affect your blood levels of other drugs you take, which may increase side effects or make the medications less effective. Other drugs may affect doxycycline, including prescription and cqoa-fcd-hievbte medicines, vitamins, and herbal products. Tell your doctor about all your current medicines and any medicine you start or stop using. Where can I get more information? Your pharmacist can provide more information about doxycycline. Remember, keep this and all other medicines out of the reach of children, never share your medicines with others, and use this medication only for the indication prescribed. Every effort has been made to ensure that the information provided by [employer]. ('[employer]') is accurate, up-to-date, and complete, but no guarantee is made to that effect. Drug information contained herein may be time sensitive. [employer] information has been compiled for use by healthcare practitioners and consumers in the [place] and therefore [employer] does not warrant that uses outside of the [place] are appropriate, unless specifically indicated otherwise. [employer] drug information does not endorse drugs, diagnose patients or recommend therapy. [employer] drug information is an informational resource designed to assist licensed healthcare practitioners in caring for their patients and/or to serve consumers viewing this service as a supplement to, and not a substitute for, the expertise, skill, knowledge and judgment of healthcare practitioners. The absence of a warning for a given drug or drug combination in no way should be construed to indicate that the drug or drug combination is safe, effective or appropriate for any given patient. [employer] does not assume any responsibility for any aspect of healthcare administered with the aid of information [employer] provides. The information contained herein is not intended to cover all possible uses, directions, precautions, warnings, drug interactions, allergic reactions, or adverse effects. If you have questions about the drugs you are taking, check with your doctor, nurse or pharmacist. Copyright 9838-4148 [employer]. Version: 25.. Revision Date: 06/26/2023. Education Materials Noncardiac Chest Pain Based on your visit today, the healthcare provider doesn t know what is causing your chest pain. In most cases, people who come to the emergency department with chest pain don t have a problem with their heart. Instead, the pain is caused by other conditions. It's important for the healthcare team to be sure you are not having a life threatening cause for chest pain such as a heart attack, blood clot in the lungs, collapsed lung, ruptured esophagus, or tearing of the aorta. Once these major causes have been ruled out, you may have further evaluation for non-heart causes of chest pain. These may be problems with the lungs, muscles, bones, digestive tract, nerves, or mental health. Lung problems Inflammation around the lungs (pleurisy) Collapsed lung (pneumothorax) Fluid around the lungs (pleural effusion) Lung cancer (a rare cause of chest pain) Muscle or bone problems Inflamed cartilage between the ribs (costochondritis) Fibromyalgia Rheumatoid arthritis Chest wall strain Digestive system problems Reflux Stomach ulcer Spasms of the esophagus Gall stones Gallbladder inflammation Mental health conditions Panic or anxiety attacks Emotional distress Your condition doesn t seem serious and your pain doesn t appear to be coming from your heart. But sometimes the signs of a serious problem take more time to appear. Watch for the warning signs listed below. Home care Follow these guidelines when caring for yourself at home: Rest today and avoid strenuous activity. Take any prescribed medicine as directed. Follow-up care Follow up with your healthcare provider, or as advised, if you don t start to feel better within 24 hours. When to seek medical advice Call your healthcare provider right away if any of these occur: A change in the type of pain. Call if it feels different, becomes more serious, lasts longer, or begins to spread into your shoulder, arm, neck, jaw, or back. Shortness of breath You feel more pain when you breathe Cough with dark-colored mucus or blood Weakness, dizziness, or fainting Fever of 100.4 F (38 C) or higher, or as directed by your healthcare provider Swelling, pain, or redness in one leg [id number] [employer]. [address] [place] [address], [place] [address]. All rights reserved. This information is not intended as a substitute for professional medical care. Always follow your healthcare professional's instructions. Acute Bronchitis Your healthcare provider has told you that you have acute bronchitis. Bronchitis is infection or inflammation of the bronchial tubes (airways in the lungs). Normally, air moves easily in and out of the airways. Bronchitis narrows the airways, making it harder for air to flow in and out of the lungs. This causes symptoms such as shortness of breath, coughing up yellow or green mucus, and wheezing. Bronchitis can be acute or chronic. Acute means the condition comes on quickly and goes away in a short time, usually within 3 to 10 days. Chronic means a condition lasts a long time and often comes back. What causes acute bronchitis? Acute bronchitis almost always starts as a viral respiratory infection, such as a cold or the flu. Certain factors make it more likely for a cold or flu to turn into bronchitis. These include being very young, being elderly, having a heart or lung problem, or having a weak immune system. Cigarette smoking also makes bronchitis more likely. When bronchitis develops, the airways become swollen. The airways may also become infected with bacteria. This is known as a secondary infection. Diagnosing acute bronchitis Your healthcare provider will examine you and ask about your symptoms and health history. You may also have a sputum culture to test the fluid in your lungs. Chest X-rays may be done to look for infection in the lungs. Treating acute bronchitis Bronchitis usually clears up as the cold or flu goes away. You can help feel better faster by doing the following: Take medicine as directed. You may be told to take ibuprofen or other ockp-cgt-gzmchmo medicines. These help relieve inflammation in your bronchial tubes. Your healthcare provider may prescribe an inhaler to help open up the bronchial tubes. Most of the time, acute bronchitis is caused by a viral infection. Antibiotics are usually not prescribed for viral infections. Drink plenty of fluids, such as water, juice, or warm soup. Fluids loosen mucus so that you can cough it up. This helps you breathe more easily. Fluids also prevent dehydration. Make sure you get plenty of rest. Do not smoke. Do not allow anyone else to smoke in your home. Recovery and follow-up Follow up with your doctor as you are told. You will likely feel better in a week or two. But a dry cough can linger beyond that time. Let your doctor know if you still have symptoms (other than a dry cough) after 2 weeks, or if you re prone to getting bronchial infections. Take steps to protect yourself from future infections. These steps include stopping smoking and avoiding tobacco smoke, washing your hands often, and getting a yearly flu shot. When to call your healthcare provider Call the healthcare provider if you have any of the following: Fever of 100.4 F (38.0 C) or higher, or as advised Symptoms that get worse, or new symptoms Trouble breathing Symptoms that don t start to improve within a week, or within 3 days of taking antibiotics [phone] [employer]. [address] [place] [address]. All rights reserved. This information is not intended as a substitute for professional medical care. Always follow your healthcare professional's instructions. Additional Information VACCINATE! IT SAVES LIVES! Members of the community who have not yet received the COVID-19 vaccine and would like to receive it can visit one of [facility] vaccine clinics. There are many vaccine clinic locations within the [facility]. For locations and available times, please visit [email or web address] It is important to note that some COVID mobile vaccine clinics are held outdoors and may be canceled in rainy or stormy conditions. To learn more about pediatric vaccinations (ages 5-11), we invite you to visit the [facility] webpage. [email or web address]/p [email or web address]-Cfrgx-Fgsrokogtaf-Freq [email or web address]-Mmierqegd.[email or web address] To learn more about the COVID-19 vaccine, we invite you to visit the CDC website for a list of frequently asked questions. https://www.cdc.gov/coronavirus/ 2019-ncov/vaccines/faq.html [facility] Patient Portal Access Instructions: Stay connected with your healthcare team and access your personal medical information anytime with the [facility] Patient Portal. If you would like a full copy of your medical records please contact the [facility] Medical Records Department Saturday through Saturday between 8a.m. and 4:30p.m. Please follow the directions below to access the portal: 1.Access the email account you provided upon registration to the hospital.2.Look for an invitation email from [facility].3.Open the email and access the invitation link: Accept Invitation to [facility].Fill in the required hopson to create your account. Sign into www.Payment plugin with your username and password that you created in the above steps to stay up to date. You can then view a summary of results, a summary of your visits, and the ability to download your summaries to your computer or send the information securely to a physician. Remember that your healthcare information is confidential, so carefully consider who you will allow to register on the [facility] Patient Portal for access to your information. You can also access the [facility] Patient Portal on the [employer] roe. Simply click on Health Records under Health Data and then click on the [employer] logo. HOW TO SAFELY DISPOSE OF PRESCRIPTION MEDICATIONS Please use one of the following methods to safely dispose of your unused medications. 1.Use a drug disposal kit: the drug disposal pouch allows you to safely discard your old and unused drugs. Ask your nurse to give you one when you are discharged.2.Visit a local take-back location: Many local pharmacies and police departments have programs that collect old and unwanted prescription drugs. Call your local pharmacy or go to http://[employer]Kite.ly/6M4Ns9b to find one close to you.3.Make use of household items: Use cat litter or old coffee grounds to dispose medications if other options are not available. Mix your drugs with these household products, seal them in an airtight container and throw it into the garbage. Call [facility]: [phone] to be sure your drugs can be disposed of in this way. Some medicines may require a different approach.4.Never flush your medications down the toilet. IF YOU HAVE BEEN PRESCRIBED AN OPIOIDS FOR PAIN If you have been prescribed an opioid (such as hydrocodone, oxycodone or morphine), it is critical to understand the possible side effects and risks of opioid pain medications. Even when taken as directed, opioids can have several side effects including: Tolerance, meaning you might need to take more of a medication for the same pain relief. Nausea, vomiting and/or constipation. Sleepiness, dizziness, dry mouth, confusion, depression or itching. Physical dependence, meaning you have withdrawal symptoms when a medication is stopped ? this can develop within a few days. KNOW YOUR RESPONSIBILITIES It is important to know exactly how much and how often to take the opioid pain medications you are prescribed. Never take opioids in higher amounts or more often than prescribed. Do not combine opioids with alcohol or other drugs that cause drowsiness, such as benzodiazepines, also known as benzos, including diazepam and alprazolam, muscle relaxants or sleep aids. Never sell or share prescription opioids. This is illegal. Store opioids in a secure place and out of reach of others (including children, family, friends and visitors). The last page(s) of this document has been signed and retained as a CHART COPY Signatures Patient Education Materials Chest Pain, Noncardiac Acute Bronchitis Medication Leaflets benzonatate, doxycycline (oral/injection) My discharge plan and instructions have been reviewed and explained to me and I,BOO SWEENEY understand my current condition and have read and understand these discharge instructions. I have received a written copy of the plan/instructions. If I have questions, I am aware that I should contact my doctor. 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 Multiplanar reformatted images are provided for review. MIP images are provided for review. Automated exposure control, iterative reconstruction, and/or weight based adjustment of the mA/kV was utilized to reduce the radiation dose to as low as reasonably achievable. COMPARISON: 10/22/2016. HISTORY: ORDERING SYSTEM PROVIDED HISTORY: Reason for Exam: difficulty breathing; suspect DISSECTION FINDINGS: Pulmonary Arteries: Pulmonary arteries are adequately opacified for evaluation. No evidence of intraluminal filling defect to suggest pulmonary embolism. Main pulmonary artery is normal in caliber. Mediastinum: No evidence of mediastinal lymphadenopathy. The heart and pericardium demonstrate no acute abnormality. The ascending thoracic aorta is 4.4 cm at the main pulmonary artery. No dissection visualized. There is no gating. No unenhanced series performed. Normal aortic arch branching pattern.. Lungs/pleura: Mild emphysematous changes. Bilaterally in the lungs there is dependent atelectasis. There is also mild atelectasis/scarring of lingula. No large focal consolidation or evidence of edema. No pleural effusion or pneumothorax. 3 mm juxtapleural left upper lobe nodule (series 2, image 54). Right upper lobe 3 mm nodule (series 2, image 75). Upper Abdomen: Scattered hepatic hypodensities, likely cysts. Splenomegaly noted.. Soft Tissues/Bones: No acute bone or soft tissue abnormality. Mildly degenerative spine. IMPRESSION: Motion artifacts. Mild ectasia of the ascending thoracic aorta. No dissection is identified Mild emphysema. Scattered tiny pulmonary nodules. See below. I have personally reviewed the images of this examination and agree with the resident's findings and interpretation. RECOMMENDATIONS: Multiple pulmonary nodules. Most significant: Left solid pulmonary nodule within the upper lobe measuring 3 mm. Per Fleischner Society Guidelines, a non-contrast Chest CT at 12 months is optional. If performed and the nodule is stable at 12 months, no further follow-up is recommended. These guidelines do not apply to immunocompromised patients and patients with cancer. Follow up in patients with significant comorbidities as clinically warranted. For lung cancer screening, adhere to Lung-RADS guidelines. Reference: Radiology. 2017; 284(1):228-43. Interpreted by: Sivakumar Desouza MD Preliminary Report By: Edwin Romero Electronically signed By Sivakumar Desouza MD Dictated Date: 01/19/2024 12:53:26 PM Prelim Date: 01/19/2024 1:02:26 PM Sign Date: 01/19/2024 1:36:04 PM Ordering Provider: THOMPSON HONEYCUTT [facility] 01-19-2024 Note Sinus rhythm Electronic Signature: THOMPSON HONEYCUTT MD 01/19/2024 13:19:29 [facility] 01-13-2024 History of Presen t illness Narrative [facility] Refill Assessment Medication(s): Dupixent Patient's current medication list and adherence status to current therapy were reviewed by Specialty Pharmacy clinical pharmacist to identify any new drug interactions or non-compliance to therapy. Therapy continues to be appropriate for disease, patient response, and medical condition. Verification of therapeutic benefit and effectiveness with current therapy was completed. Adverse events, barriers in adherence, and side effects were assessed and addressed if applicable. Will proceed with refill with no changes in therapy - patient progressing towards achieving therapeutic goals based on medication-specific laboratory parameters, disease state markers and outcomes. Raven NicholsonD Clinical Pharmacist, [employer] [facility] ; Pool: [facility] Pool #: [id number] [facility] Assessment Patient confirmed: Yes Med/dose confirmed: Yes Missed doses: No Estimated days supply on hand: 0 Next cycle/dose due: 01/20/24 Copay amount: 0 Delivery method: FedEx Signature required: Waived on patient request [facility] [address] Delivery date: 01/15/24 Questions or concerns for the pharmacist?: No Current Outpatient Medications on File Prior to Visit Medication Sig dupilumab 300 mg/2 mL subcutaneous syringe (DUPIXENT SYRINGE) Inject 1 syringe (300 mg) subcutaneously every 2 weeks triamcinolone acetonide (KENALOG) 0.1 % cream Apply to affected areas twice daily Saturday-Saturday as needed. Avoid face, groin, and armpits ketoconazole (NIZORAL) 2 % shampoo Use as a body wash once daily for 4 weeks. After 4 weeks, decrease use to once per week as maintenance triamcinolone acetonide (KENALOG) 0.1 % cream Apply 1 application to affected area twice daily. Apply to affected area. Location: rash ybctdurn-wnuwcpjuu-larrzwgihkywe e (CORTISPORIN) 3.5-10,000-1 mg/mL-unit/mL-% otic suspension Use 3 Drops in both ears four times daily. (Patient not taking: Reported on 01/04/2022 ) predniSONE (DELTASONE) 10 mg tablet Take 4 tabs daily for 3 days, then 2 tabs daily for 3 days, then 1 tab daily for 3 days with food. (Patient not taking: Reported on 01/04/2022 ) ibuprofen (MOTRIN) 600 mg tablet Take 1 tablet by mouth every 6 hours as needed for pain. (Patient not taking: Reported on 01/04/2022 ) No current facility-administered medications on file prior to visit. [facility] Visit Assessment - Inflammatory Conditions: Ivent complete: No Assessment to use: Refill Vaccination Assessment: Date of influenza vaccination reminder: 08/12/2023 Date of most recent vaccination assessment: 08/12/2023 Treatment Plan Information: Treatment Plan Information: Dupxient 300mg/2mL syringe Inject 1 syringe (300 mg) subcutaneously every 2 weeks L30.9 Dermatitis Estimated Treatment Duration: Until loss of efficacy and/or no longer tolerated. Refill Assessment: Concurrent med therapy and DMARD screening: Yes Assessment of injection issues: Yes Screening for infection: Yes Adverse reactions and mitigation: Yes COPD monitoring (Orencia): N/A Assessment of efficacy: Yes Cade Higginbotham CPhT, Inflammatory/allergy [facility] [phone] documented in this encounter [facility] 01-10-2024 History of Presen t illness Narrative Subjective HPI Nontoxic-appearing male presents urgent care chief complaint right-sided chest pain. Duration of symptom 1 week. Associated symptoms worsening right-sided chest pain. Has not use any OTC medication. Does he have a cough but this is not productive. No OTC medications. Risk factors thoracic aortic aneurysm rupture. Was supposed to follow-up with tester armature or fields followed up for 1 appointment stated did not like tester armature or fields never returned. Medical history prescription medications allergies reviewed. BP 139/89 Pulse 105 Temp 36.2 C (97.2 F) Resp 20 Wt 116.3 kg (256 lb 6.3 oz) SpO2 97% BMI 31.21 kg/m .Patient presents with: Cough: Chest congestion, R lung pain x1 week PAST MEDICAL HISTORY Diagnosis Date Mild dilation of ascending aorta (HCC) 04/09/2018 Smoker 12/27/2015 Started at age 17, 1PPD PAST SURGICAL HISTORY Procedure Laterality Date LAPAROSCOPY SURG RPR INITIAL INGUINAL HERNIA Right 07/2020 PAST SURGICAL HISTORY OF pins/screws right lower leg ALLERGIES Penicillins MEDICATIONS dupilumab 300 mg/2 mL subcutaneous syringe (DUPIXENT SYRINGE) Inject 1 syringe (300 mg) subcutaneously every 2 weeks triamcinolone acetonide (KENALOG) 0.1 % cream Apply to affected areas twice daily Saturday-Saturday as needed. Avoid face, groin, and armpits ketoconazole (NIZORAL) 2 % shampoo Use as a body wash once daily for 4 weeks. After 4 weeks, decrease use to once per week as maintenance triamcinolone acetonide (KENALOG) 0.1 % cream Apply 1 application to affected area twice daily. Apply to affected area. Location: rash rjyrlsdz-ydjnctete-kbaumkcwhccvf e (CORTISPORIN) 3.5-10,000-1 mg/mL-unit/mL-% otic suspension Use 3 Drops in both ears four times daily. (Patient not taking: Reported on 01/04/2022 ) predniSONE (DELTASONE) 10 mg tablet Take 4 tabs daily for 3 days, then 2 tabs daily for 3 days, then 1 tab daily for 3 days with food. (Patient not taking: Reported on 01/04/2022 ) ibuprofen (MOTRIN) 600 mg tablet Take 1 tablet by mouth every 6 hours as needed for pain. (Patient not taking: Reported on 01/04/2022 ) FAMILY HISTORY Problem Relation Age of Onset Diabetes Maternal Grandfather Psychiatry Mother other (parkinson's) Mother Coronary Artery Disease Father 40's other (meningitis) Father Social History Tobacco Use Smoking status: Every Day Packs/day: 1.00 Years: 25.00 Additional pack years: 0.00 Total pack years: 25.00 Types: Cigarettes Smokeless tobacco: Never Substance Use Topics Alcohol use: Yes Alcohol/week: 12.0 standard drinks of alcohol Types: 12 Cans of Beer (12oz) per week Drug use: No Review of Systems Constitutional: Negative for chills, fever and malaise/fatigue. HENT: Negative for congestion, ear discharge, ear pain, sinus pain and sore throat. Eyes: Negative for blurred vision, pain, discharge and redness. Respiratory: Negative for cough, hemoptysis, sputum production, shortness of breath, wheezing and stridor. Cardiovascular: Positive for chest pain. Gastrointestinal: Negative for abdominal pain, diarrhea, nausea and vomiting. Musculoskeletal: Negative for myalgias. Skin: Negative for itching and rash. Neurological: Negative for dizziness and headaches. Objective Physical Exam Constitutional: General: He is not in acute distress. Appearance: He is not toxic-appearing. HENT: Head: Normocephalic. Nose: Nose normal. Eyes: Pupils: Pupils are equal, round, and reactive to light. Cardiovascular: Rate and Rhythm: Tachycardia present. Pulmonary: Effort: Pulmonary effort is normal. No respiratory distress. Breath sounds: No wheezing, rhonchi or rales. Musculoskeletal: Cervical back: Normal range of motion. Skin: General: Skin is warm and dry. Neurological: General: No focal deficit present. Mental Status: He is alert. ASSESSMENT/PLAN: 1. Chest pain, unspecified type - ICD9: 786.50, ICD10: R07.9 Diagnosed with chest pain. No URI-like symptoms. With past medical history recommend patient be seen ED for further evaluation and care. Rey Santillan APRN.DEBI documented in this encounter [facility] 08-29-2023 History of Presen t illness Narrative [facility] Refill Assessment Medication(s): Dupixent Patient's current medication list and adherence status to current therapy were reviewed by Specialty Pharmacy clinical pharmacist to identify any new drug interactions or non-compliance to therapy. Therapy continues to be appropriate for disease, patient response, and medical condition. Verification of therapeutic benefit and effectiveness with current therapy was completed. Adverse events, barriers in adherence, and side effects were assessed and addressed if applicable. Will proceed with refill with no changes in therapy - patient progressing towards achieving therapeutic goals based on medication-specific laboratory parameters, disease state markers and outcomes. Patient switching from pens to syringes, has already discussed with provider and Rx is covered under existing PA. Myrna Wheat, RavenD Clinical Pharmacist, Biologics [facility] ; Pool: P [facility] Pool #: [id number] [employer] Assessment Patient confirmed: Yes Med/dose confirmed: Yes Supplies needed: No supplies needed Missed doses: No Estimated days supply on hand: 0 Next cycle/dose due: 08/30/23 Copay amount: 0 Payment confirmed: Yes Delivery method: FedEx Signature required: Waived on patient request Delivery address: [address] [place] [address] Delivery date: 08/30/23 Questions or concerns for the pharmacist?: No [facility] Visit Assessment - Inflammatory Conditions: Ivent complete: No Assessment to use: Refill Vaccination Assessment: Date of influenza vaccination reminder: 08/12/2023 Date of most recent vaccination assessment: 08/12/2023 Refill Assessment: Concurrent med therapy and DMARD screening: Yes Assessment of injection issues: Yes Screening for infection: Yes Adverse reactions and mitigation: Yes COPD monitoring (Orencia): N/A Assessment of efficacy: Yes Rema Aguilar CPhT [facility] documented in this encounter [facility] 08-08-2023 History of Presen t illness Narrative [facility] Department of Dermatology VIRTUAL VISIT This is a virtual visit. It required patient-provider interaction for the medical decision making as documented below. This visit was completed via [employer] Virtual Platform. Discussed with patient limitations of virtual software with assessment of skin disease/lesions. Patient acknowledged and consented to visit. Patient to update PCP with any medication changes. Chief Complaint: Patient presents with: Psoriasis Date of last visit to [facility]: 05/02/22, Rayne Leo MD History of Present Illness: Boo Sweeney is a 52 year old male Patient is here for: # Eczema Location: groin, buttock, arms, legs Duration: years Symptoms (growing, itching, bleeding, tender): flaring, discoloration Current Treatments: dupixent ( held for 2 months) Past Treatments: triamcinolone 0.1% cream Dupixent works very well; no side effects currently (approximately 9 months ago had a sharp pain in the eye) PERTINENT PAST DERMATOLOGIC HISTORY: -Personal History of Skin Cancer: No -Personal History of Atypical Moles: No PHYSICAL EXAM: -General: well appearing, in no acute distress -Psychiatry: appropriate mood/affect Skin: Chandra phototype: II Skin exam performed of Face, Scalp, Neck, Chest, Abdomen, Back, Bilateral upper extremities, Hands/nails Skin exam normal with the exception of: Hypopigmented macules coalescing into reticulated patches on the upper back Eczematous plaques on the inguinal creases, lower abdomen, arms, lower back; 15% TBSA Specimen #: [id number] Submitting Physician: RAKESH PIPER MD FINAL DIAGNOSIS A. Skin, left flank, punch biopsy - Subacute spongiotic dermatitis, see comment. AF//ka 12/29/2020 COMMENT Sections demonstrate mounds of parakeratosis with serum crust in the stratum corneum overlying an epidermis showing irregular acanthosis and spongiosis. In the superficial and mid dermis, there is perivascular and interstitial inflammatory infiltrate composed mostly of lymphocytes and histiocytes. Eosinophils are not readily identified. The clinical chart and photos are reviewed. In summary, the histologic features are those of an eczematous dermatitis, and the differential diagnosis includes atopic dermatitis, nummular dermatitis, and allergic contact dermatitis. Clinical correlation is recommended. Alex Morrow M.D. PhD (Electronic Signature) ASSESSMENT AND PLAN: Eczema Biopsy confirmed a diagnosis of eczematous dermatitis in 2020 Patient's eczema clears with Dupixent, but ran out 2 months ago Restart topical triamcinolone 0.1% for the body. Apply to affected areas twice daily Saturday-Saturday as needed. Avoid face, groin, and armpits Continue Dupixent 300 mg every 2 weeks thereafter. Discussed risk of injection site reactions and conjunctivitis Tinea versicolor on upper back Start ketoconazole 2% shampoo. During flares: use as a body wash once daily for 4 weeks. After 4 weeks, decrease use to once per week as maintenance Discussed hypopigmentation can take months to fade Patient verbalizes understanding and agrees with treatment plan and will contact us with any further questions or concerns. Return to clinic 1 year for refills or sooner for any worsening in condition. Lapping Machine Operator Attestation: The documentation for this note was completed by Romana Merrill Ma acting as scribe for Kathryn Girard MD. August 08, 2023 1:05 PM. I have communicated my name and active licensure. The patient's identity and physical location were verified at the time of this visit. Either the patient or their legal hardware supplies sales representative has been informed of the risks and benefits of -- and alternatives to -- treatment through a remote evaluation and consents to proceed with the evaluation remotely. I agree with the Chief Complaint, ROS, and Past Histories independently gathered by the clinical client support coordinator and the remaining scribed note accurately describes my personal service to the patient. Kathryn Girard MD documented in this encounter [facility] 04-29-2023 History of Presen t illness Narrative [facility] Refill Assessment Medication(s): Dupixent Patient's current medication list and adherence status to current therapy were reviewed by Specialty Pharmacy clinical pharmacist to identify any new drug interactions or non-compliance to therapy. Therapy continues to be appropriate for disease, patient response, and medical condition. Verification of therapeutic benefit and effectiveness with current therapy was completed. Adverse events, barriers in adherence, and side effects were assessed and addressed if applicable. Will proceed with refill with no changes in therapy - patient progressing towards achieving therapeutic goals based on medication-specific laboratory parameters, disease state markers and outcomes. [employer] Assessment Patient confirmed: Yes Med/dose confirmed: Yes Supplies needed: No supplies needed Missed doses: No Estimated days supply on hand: 1 Next cycle/dose due: 05/04/23 Copay amount: 0 Payment confirmed: Yes Delivery method: FedEx Signature required: Waived on patient request Delivery address: [address] [place] [address] Delivery date: 05/03/23 Questions or concerns for the pharmacist?: No [facility] Visit Assessment - Inflammatory Conditions: Assessment to use: Refill Vaccination Assessment: Date of influenza vaccination reminder: 09/28/2022 Date of most recent vaccination assessment: 09/28/2022 Rema Aguilar CPhT [facility] documented in this encounter [facility] 02-22-2023 History of Presen t illness Narrative [facility] Refill Assessment Medication(s): Dupixent Patient's current medication list and adherence status to current therapy were reviewed by Specialty Pharmacy clinical pharmacist to identify any new drug interactions or non-compliance to therapy. Therapy continues to be appropriate for disease, patient response, and medical condition. Verification of therapeutic benefit and effectiveness with current therapy was completed. Adverse events, barriers in adherence, and side effects were assessed and addressed if applicable. Will proceed with refill with no changes in therapy - patient progressing towards achieving therapeutic goals based on medication-specific laboratory parameters, disease state markers and outcomes. [employer] Assessment Patient confirmed: Yes Med/dose confirmed: Yes Supplies needed: No supplies needed Missed doses: No Estimated days supply on hand: 0 Next cycle/dose due: 03/04/23 Copay amount: 0 Payment confirmed: Yes Signature required: No (pt requested signature be removed) Delivery address: [address] [place] [address] Delivery date: 02/27/23 Questions or concerns for the pharmacist?: No [facility] Visit Assessment - Inflammatory Conditions: Assessment to use: Refill Vaccination Assessment: Date of influenza vaccination reminder: 09/28/2022 Date of most recent vaccination assessment: 09/28/2022 Rema Aguilar CPhT [facility] documented in this encounter [facility] 01-23-2023 History of Presen t illness Narrative [facility] Refill Assessment Medication(s): Dupixent Patient's current medication list and adherence status to current therapy were reviewed by Specialty Pharmacy clinical pharmacist to identify any new drug interactions or non-compliance to therapy. Therapy continues to be appropriate for disease, patient response, and medical condition. Verification of therapeutic benefit and effectiveness with current therapy was completed. Adverse events, barriers in adherence, and side effects were assessed and addressed if applicable. Will proceed with refill with no changes in therapy - patient progressing towards achieving therapeutic goals based on medication-specific laboratory parameters, disease state markers and outcomes. Raven MannD Clinical Pharmacist, Biologics [facility] ; Pool: P [facility] Pool #: [id number] [employer] Assessment Patient confirmed: Yes Med/dose confirmed: Yes Supplies needed: No supplies needed Missed doses: No Estimated days supply on hand: 0 Next cycle/dose due: 02/02/23 Copay amount: 0 Payment confirmed: Yes Delivery method: FedEx Signature required: Yes (, Medicaid, patient preference) (Patient has requested signature to be removed for delivery) Delivery address: [address] [place] [address] Delivery date: 01/25/23 Questions or concerns for the pharmacist?: No [facility] Visit Assessment - Inflammatory Conditions: Ivent complete: No Assessment to use: Refill Vaccination Assessment: Date of influenza vaccination reminder: 09/28/2022 Date of most recent vaccination assessment: 09/28/2022 Refill Assessment: Concurrent med therapy and DMARD screening: Yes Assessment of injection issues: Yes Screening for infection: Yes Adverse reactions and mitigation: Yes COPD monitoring (Orencia): N/A Assessment of efficacy: Yes Lisa Daniel (Airport Maintenance Chief) documented in this encounter [facility] 12-21-2022 Miscellaneous Notes Pt will be due for a refill of Dupixent soon. If therapy is being continued, please sign this order request to send refill via eRx to [facility]. Thanks! Requested Prescriptions Pending Prescriptions Disp Refills dupilumab 300 mg/2 mL subcutaneous syringe (DUPIXENT SYRINGE) 4 mL 5 Sig: Inject 300mg (1 syringe) subcutaneously every 2 weeks. ALLERGIES Allergen Reactions Penicillins Anaphylaxis Penicillin Anaphylaxis Pt reports that he stopped breathing after receiving penicillin when he was a baby. Ani Umana RPh Clinical Pharmacist, Hepatology & HCV [facility] P: ; F: Pool: [facility] documented in this encounter [facility] 09-24-2022 History of Presen t illness Narrative [facility] Refill Assessment Medication(s): Dupxient Patient's current medication list and adherence status to current therapy were reviewed by Specialty Pharmacy clinical pharmacist to identify any new drug interactions or non-compliance to therapy. Therapy continues to be appropriate for disease, patient response, and medical condition. Verification of therapeutic benefit and effectiveness with current therapy was completed. Adverse events, barriers in adherence, and side effects were assessed and addressed if applicable. Will proceed with refill with no changes in therapy - patient progressing towards achieving therapeutic goals based on medication-specific laboratory parameters, disease state markers and outcomes. [employer] Assessment Patient confirmed: Yes Med/dose confirmed: Yes Supplies needed: No supplies needed Missed doses: No Estimated days supply on hand: 0 Next cycle/dose due: 10/04/22 Copay amount: 0 Payment confirmed: Yes Delivery method: FedEx Signature required: No (patient requested siganture requirement be removed) Delivery address: [address] [place] [address] Delivery date: 10/02/22 Questions or concerns for the pharmacist?: No [facility] Visit Assessment - Inflammatory Conditions: Assessment to use: Refill Vaccination Assessment: Date of influenza vaccination reminder: 07/14/2021 Date of most recent vaccination assessment: 07/14/2021 Rema Aguilar CPhT [facility] documented in this encounter [facility] 08-24-2022 History of Presen t illness Narrative [facility] Refill Assessment Medication(s): Dupixent Patient's current medication list and adherence status to current therapy were reviewed by Specialty Pharmacy clinical pharmacist to identify any new drug interactions or non-compliance to therapy. Therapy continues to be appropriate for disease, patient response, and medical condition. Verification of therapeutic benefit and effectiveness with current therapy was completed. Adverse events, barriers in adherence, and side effects were assessed and addressed if applicable. Will proceed with refill with no changes in therapy - patient progressing towards achieving therapeutic goals based on medication-specific laboratory parameters, disease state markers and outcomes. [employer] Assessment Patient confirmed: Yes Med/dose confirmed: Yes Supplies needed: No supplies needed Missed doses: No Estimated days supply on hand: 0 Next cycle/dose due: 09/04/22 Copay amount: 0 Payment confirmed: Yes Delivery method: FedEx Signature required: No (pt requested sig req't be waived) Delivery address: [address] Delivery date: 08/30/22 Questions or concerns for the pharmacist?: No [facility] CLINICAL ASSESSMENT - Inflammatory Conditions Rema Aguilar CPhT [facility] documented in this encounter [facility] 08-23-2022 Miscellaneous Notes Boo Sweeney will be due for a refill soon. Last office visit: 05/02/2022 Pended Orders ID Status Description Pended By When Reason [id number] Pended dupilumab 300 mg/2 mL subcutaneous syringe (DUPIXENT SYRINGE)-EVERY 2 WEEKS Rema Aguilar 08/22/22 0939 If above therapy is being continued, please sign this order request to send refill(s) via eRx to [facility]. Thank you. Isauro Haider, RavenD Clinical Pharmacist, Biologics, Neurology, and Hepatology [facility] ; Pool: P [facility] Pool #: [id number] documented in this encounter [facility] 08-02-2022 Miscellaneous Notes Patient has been identified by name and date of : Yes Patient electronically sent a request for the following prescription(s) If there are any questions regarding this prescription request, call at home at: [phone] (home) [phone] (work) [phone] (cell) RX INSTRUCTIONS: Patient aware RX will be sent to pharmacy. No need to notify patient. 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 Apply to affected area. Location: rash Prescriptions are usually addressed within 24-48 business hours. If patient states they cannot wait 24-48 business hours, please document details. Last 2 Encounter Wt Readings: Date: Wt: 02/23/2022 116.2 kg (256 lb 3.2 oz) 10/05/2021 110.2 kg (243 lb) Last 2 Encounter BP Readings: Date: BP: 02/23/2022 122/80 10/05/2021 120/82 Harsh Buck MA documented in this encounter [facility] 07-19-2022 History of Presen t illness Narrative [facility] Refill Assessment Medication(s): Dupixent Patient's current medication list and adherence status to current therapy were reviewed by Specialty Pharmacy clinical pharmacist to identify any new drug interactions or non-compliance to therapy. Therapy continues to be appropriate for disease, patient response, and medical condition. Verification of therapeutic benefit and effectiveness with current therapy was completed. Adverse events, barriers in adherence, and side effects were assessed and addressed if applicable. Will proceed with refill with no changes in therapy - patient progressing towards achieving therapeutic goals based on medication-specific laboratory parameters, disease state markers and outcomes. [facility] Assessment Patient confirmed: Yes Med/dose confirmed: Yes Supplies needed: No supplies needed Missed doses: No Estimated days supply on hand: 1 Next cycle/dose due: 07/21/22 Copay amount: 0 Payment confirmed: Yes Delivery method: FedEx Signature required: Yes ([facility], Medicaid, patient preference) Delivery address: [address] [place] [address] Delivery date: 07/26/22 Questions or concerns for the pharmacist?: No [facility] Visit Assessment - Inflammatory Conditions: Assessment to use: Refill Vaccination Assessment: Date of influenza vaccination reminder: 07/14/2021 Date of most recent vaccination assessment: 07/14/2021 Rema Aguilar CPhT [facility] documented in this encounter [facility] 05-25-2022 History of Presen t illness Narrative [facility] Specialty Refill Assessment Medication(s): Dupixent Patient's current medication list and adherence status to current therapy were reviewed by Specialty Pharmacy clinical pharmacist to identify any new drug interactions or non-compliance to therapy. Therapy continues to be appropriate for disease, patient response, and medical condition. Verification of therapeutic benefit and effectiveness with current therapy was completed. Adverse events, barriers in adherence, and side effects were assessed and addressed if applicable. Will proceed with refill with no changes in therapy - patient progressing towards achieving therapeutic goals based on medication-specific laboratory parameters, disease state markers and outcomes. [facility] Visit Assessment - Inflammatory Conditions: Assessment to use: Refill Non-Clinical Assessment: Patient confirmed: Yes Med/dose confirmed: Yes Supplies needed: No Missed doses: No Estimated days supply on hand: 0 Next cycle/dose due: 05/29/2022 Copay amount: 0 Payment confirmed: Yes Address confirmed: Yes Delivery method: FedEx Delivery address: [address] [place], [place] [id number] Delivery date: 05/26/2022 Additional questions, comments, concerns: Patient has requested that signature requirement be waived for delivery. Patient has been thrown off schedule he says he will inject on 05/29 and again on 06/12. Vaccination Assessment: Date of influenza vaccination reminder: 07/14/2021 Date of most recent vaccination assessment: 07/14/2021 Rema Aguilar CPhT [facility] documented in this encounter [facility] 01-04-2022 History of Presen t illness Narrative Per Dr. Shankar Boo was provided with Powerstep Original full length inserts, size 11, and instructed/educated in its application, wear, and care. All questions were answered, and patient was able to demonstrate competence with the necessary skills to utilize the above equipment. Leida Parry MA Images from the original note were not included. Follow up podiatric office visit for: Chief Complaint: This 51 year old who presents for follow up:right heel pain Patient presents to clinic for follow-up right heel pain. Patient had been doing very well following injection of the right heel back in September. He also found the inserts were helping. The pain is returning and is mostly to the right heel and arch. Patient feels the pain is most severe with long duration standing or upon getting up from a seated position. Currently, patient is perfomring stretching. He is not doing any medication. PAIN EVALUATION 01/04/2022 1305 Pain Level: 7 Pain Location: Foot-Right Description: Sharp Duration Amount of Time: 3 Duration Units: Weeks Frequency: Intermittent Intervention/Comfort measure: Relaxation has inserts Hemoglobin A1C Date Value Ref Range Status 07/24/2016 5.8 (H) 4.3 - 5.6 % Final Comment: [place] [employer] guidelines indicate that patients with HgbA1c in the range 5.7-6.4% are at increased risk for development of diabetes, and intervention by lifestyle modification may be beneficial. HgbA1c greater or equal to 6.5% is considered diagnostic of diabetes. PCP: No primary care provider on file. PAST MEDICAL HISTORY Diagnosis Date Mild dilation of ascending aorta (HCC) 04/09/2018 Smoker 12/27/2015 Started at age 17, 1PPD Current Outpatient Medications Medication Sig dupilumab 300 mg/2 mL subcutaneous syringe (DUPIXENT SYRINGE) Inject 300mg (1 syringe) subcutaneously every 2 weeks. cssilnkl-hlmftlymk-fnkbuaardnfum e (CORTISPORIN) 3.5-10,000-1 mg/mL-unit/mL-% otic suspension Use 3 Drops in both ears four times daily. (Patient not taking: Reported on 01/04/2022 ) predniSONE (DELTASONE) 10 mg tablet Take 4 tabs daily for 3 days, then 2 tabs daily for 3 days, then 1 tab daily for 3 days with food. (Patient not taking: Reported on 01/04/2022 ) ibuprofen (MOTRIN) 600 mg tablet Take 1 tablet by mouth every 6 hours as needed for pain. (Patient not taking: Reported on 01/04/2022 ) triamcinolone acetonide (KENALOG) 0.1 % cream Apply 1 application to affected area twice daily. Apply to affected area. Location: rash (Patient not taking: Reported on 01/04/2022 ) No current facility-administered medications for this visit. ALLERGIES Allergen Reactions Penicillins Anaphylaxis Penicillin Anaphylaxis Pt reports that he stopped breathing after receiving penicillin when he was a baby. PAST SURGICAL HISTORY Procedure Laterality Date LAPAROSCOPY SURG RPR INITIAL INGUINAL HERNIA Right 07/2020 PAST SURGICAL HISTORY OF pins/screws right lower leg Physical Exam: Constitutional: Pt is a well developed 51 year old male who is alert, oriented, cooperative and in no apparent distress. OBJECTIVE: NVSI unchanged from previous visit. Dermatological: Nails 1-5 b/l are normal. Webspaces clean and dry 1-4 b/l. Skin appears well hydrated and supple. good color, texture, turgor. No open lesions present. No callosities present. Musculoskeletal/Orthopaedic: Patient has pain to palpation of right plantar medial calcaneal tubercle - tinel to right foot ASSESSMENT: (M72.2) Plantar fasciitis of right foot (primary encounter diagnosis) (M79.671) Right foot pain PLAN: 1. History and physical examination completed today. 2. Discussed right heel pain. Recommend stretching, icing, inserts. Will provider order for custom inserts and in meat time, will disepnse another pair of powerstep 3. Patient elected for subsequent injection. Would not recommend more than 3 injection in one calandar year. Patient elected to proceed with an injection to the right heel today. The risks, benefits, potential complications, personnel present, and alternatives to this were discsussed. Pt elected to proceed. all questions were answered. no guarantees were given. A timeout was performed. patient properly identified. procedure site marked. Under aseptic technique an injection was performed to the heel using a mixture of cc of 0.5 % Marcaine plain, of kenalog and cc of dexamethazone 4. If pain continues, surgical intervention is a possibility. Derrick Shankar DPM AMB ROOMING INTAKE FLOWSHEET DATA Risk Screening Do you have concerns about personal safety or safety in the home?: No Pain Pain Level: 7 Pain Location: Foot-Right Description: Sharp Duration Amount of Time: 3 Duration Units: Weeks Frequency: Intermittent Intervention/Comfort measure: Relaxation (has inserts) Patient presents with: Right Foot - Established Patient, Pain Patient states pain in mainly in his R foot in the arch area. He has had received a cortisone shot at last visit and inserts and both did help. Hoping to get another injection and new inserts as his are already woren out. documented in this encounter [facility] 01-04-2022 Instructions Derrick Shankar - 01/04/2022 1:20 PM EDT Images from the original note were not included. STEROID INJECTION You have been injected with a corticosteroid and local anesthesia today. This should provide relief of symptoms for the next 8 hours or so. After this time frame you will likely experience an increase in pain symptoms again until the effects of the steroid start to work, which should occur within 24-48 hours. Approximately 2% of individuals may experience a post injection flare or severe worsening of symptoms following injection. If this occurs ice the area and take Tylenol or Aleve for pain. In some very rare instances skin depigmentation and joint infection may occur. Joint infection is a concern if you experience any of the following: - pain for more than 48 hours after the injection - pain develops more than 2 days after the injection - the area becomes red, hot or swollen - you develop a fever following the injection Corticosteroid injections can also rarely interfere with the healing process and weaken tendons, sometimes causing tendons to rupture. Repeated injections of steroids can also damage joint cartilage. For these reasons, there are limits to how many times and how frequently corticosteroid injections can be used in the same area. If anything seems unusual or out of the ordinary please contact our office as soon as possible for further instruction. Powerstep Original Full length. Can purchase at [employer] here in [place], [employer] in [place] or [place]. Also can find in [employer] in [facility]. Powersteps can also be purchased online, starting around $25.00 If you have a metatarsal or dancer pad for your feet apply the pad directly to the insole so you can interchange between your shoes. Find a shoe with a removable insole and take this out and replace with your powerstep insole. Always bring powersteps with you when shopping for shoes so that you can make sure that everything fits well together What is Plantar Fasciitis? Plantar fasciitis is the most common cause of heel pain. The pain is caused by inflammation of the plantar fascia. If you strain your plantar fascia, it becomes weak, swollen and irritated (inflamed). The resulting pain may be isolated in the heel or may appear at different points on the bottom of the foot, from time to time; it may occur in one foot or both. Some think that plantar fasciitis pain is caused by irritation of nerves from tissue swelling or inflammation, but it is debatable. Plantar fasciitis is common in middle-aged people; it also occurs in younger people who are on their feet a lot, such as athletes or soldiers. The plantar fascia is a strong band of connective tissue that extends from the base of the toes, along the bottom of the foot, to the bottom of the heel (calcaneous bone); it acts like a bowstring to maintain the arch of the foot. What are heel spurs? The inflammatory reaction of the heel bone may produce spike-like projections of new bone, called heel spurs. The spurs sometimes show on X-rays. They neither cause the initial pain nor do they cause the initial problem. However, later, having to walk on spurs may cause sharp pain. What causes plantar fasciitis? Plantar fasciitis is caused by straining the ligament that supports your arch. Repeated strain can cause tiny tears in the ligament. These lead to pain and swelling. During walking, the plantar fascia experiences tension up to twice the body weight with each step. While this is normal, those who spend much time on their feet, such as nurses, head waitress/waiters, and mail carriers, often experience plantar fasciitis. Athletes involved in tennis or other racquet sports, race walking, jogging or running also show a higher incidence of plantar fasciitis than do those participating in other activities. Thus, it's clear that plantar fasciitis is predominantly an overuse injury. In fact, any activity that results in prolonged tension and stress on the plantar fascia may cause plantar fasciitis. It is possible that changes in footwear may play a role in causing plantar fasciitis, no matter what activity is occurring. Those who are overweight are prone to plantar fasciitis. This is true even for sedentary people who get little physical activity. Abnormalities of the foot and ankle joints may predispose some individuals to development of plantar fasciitis (specifically, over pronation of the subtalar joint). Contributing Factors * Flat feet * Toe running, hill running * Sudden weight increase * High-arched, rigid feet * Soft terrain, e.g. running on sand * Obesity * Pronated feet (rolled inward) * Sudden increase in activity * Family tendency * Poor shoe support * Worn out or poorly fitted shoes * Increasing age * Walking, standing or running for long periods of time, especially on hard surfaces. How is the Injury Treated? Rest Your Feet: Limit, or if possible, stop activities that are causing your heel pain. Try to avoid running or walking on hard surfaces, such as concrete. Use pain as your guide. If your foot is too painful, rest it. Ice: Ice the sore area for 30 to 60 minutes, several times a day, to reduce inflammation and relieve pain. Apply a plastic bag of crushed ice (or a bag of frozen peas) over a towel. Ice the sore area for 15 minutes after activity/exercise. Application of heat is not generally recommended, as heat expands the bone and connective tissue, perhaps exerting greater pressure on nerves and thereby increasing pain. If heat is used, follow it with ice. Medication: If your condition developed recently, anti-inflammatory/analgesic medication, combined with heel pads (see below) may be all that is necessary to relieve pain and to reduce inflammation. If no pain relief has occurred after 2-3 weeks, however, your doctor may inject either cortisone or local anesthetic directly into the tender area. Exercises: Do simple exercises, such as calf stretches and towel stretches (see below) several times a day, especially when you first get up in the morning. These can help your ligament become more flexible and strengthen the muscles that support your arch. Shoes: Poorly fitting shoes can cause plantar fasciitis. The best type of shoe to wear is a good walking or running shoe with good shock absorption and excellent arch support. You should choose the one that fits the best. [place] with your athletic shoes to find a pair that is comfortable and causes fewer symptoms. Put your shoes on as soon as you get out of bed; going barefoot or wearing slippers may make your pain worse. Good brands include (but are not limited to): New Balance, [employer]ics, [employer], SAS and Mer[employer]. Taping: Your doctor may tape your foot to maintain the arch. This takes some of the tension off the plantar fascia. Weight Loss: If your weight is putting extra stress on your feet, your doctor may encourage you to try a weight-loss program. Orthotics: An orthotic insole is a molded piece of rubber, plastic, or other material that you insert into your shoe. It corrects the alignment of your foot and cushions your foot from excessive pounding. These may be prescription or non-prescription. Prescription orthotics are custom-fitted and may fit better and control pain better, but are very expensive. Night Splints: A night splint holds the foot with the toes pointed up and the ankle at a 90-degree angle. This position applies a constant, gentle stretch to the plantar fascia. Corticosteroid Shots: Steroids may be injected into the tender area to reduce inflammation. REHAB Exercises to stretch the plantar fascia, the calf muscles, and the Achilles tendon. Tightness of the muscles of the calves may contribute to plantar fasciitis, so stretching the calf muscles is important to rehabilitation, as is stretching of the plantar fascia itself. Plantar fascial stretches Assisted Dorsiflexion/Plantar Fascia Stretch: Sit on the floor or ground, barefoot, with both legs outstretched. Use a towel or elastic band and wrap it around the ball (and not the toes) of the affected foot. Use the towel or elastic band to provide resistance to upward movement of the forefoot. Pull foot upward (toward your body) with the help of the elastic band or towel, and then return to the starting position. Ten repetitions are recommended. Perform the sequence at least three times a day. Alternate Plantar Fascia Stretch: Sit upright in a chair, barefoot. Place the ankle of the affected foot on your opposite knee. Using the same hand as the affected foot, reach across and grab the toes. Flex the ankle toward and pull the toes toward the pradhan. To test the stretch, place the thumb of your hand on the bottom of the foot. You should be able to feel the cord-like plantar fascia, running the length of the foot. Hold the stretch for a count of 10, then relax. Repeat 10 times. Do the sequence at least three times a day. Achilles/Calf Stretches Strengthening the muscles of the calves may contribute to successful rehabilitation of plantar fasciitis, as well as prevent reoccurrence. The exercises below will help strengthen the calf muscles. Calf and Achilles Tendon Stretch (Gastrocnemius Stretch): Face a wall, standing an arm's length away. Place one foot back. Place both hands on the wall. Bend the elbows and knee of your forward leg, keeping the heel of the backward foot on the floor and keeping your body straight (aligned), until your forehead nearly touches the wall, or until significant stretch is felt in the muscles of the calf of the backward leg. Hold this position for 10 to 15 seconds. Extend elbows (straighten your arms and stand upright again) and maintain this position for 10 seconds. Repeat this cycle 15 to 20 times. Switch legs and repeat the exercise. documented in this encounter [facility] 09-19-2021 History of Presen t illness Narrative Radiology Service Progress Note PATIENT NAME: Boo Sweeney DATE OF SERVICE: September 19, 2021 TIME: 1:42 PM PATIENT IDENTITY VERIFICATION COMPLETED USING TWO (2) IDENTIFIERS: Name and Date of confirmed by patient verbally. FALL SCREENING: Has the patient had 2 falls in the last year or 1 fall with injury or currently using an Ambulatory Assistive Device (Walker, Cane, Wheelchair, Crutches, etc.)? No PATIENT GENDER DATA: Male PATIENT RELEVANT IMPLANT DATA REVIEWED: Yes RADIOLOGY DEPARTMENT: General X-ray: Exam(s) Completed: Lower Extremity X-Ray(s): Tibia Fibula, Right and Foot, Right and Wt. Bearing PERIPHERAL IV DATA: Not applicable SIGNED BY: RT Erwin(R) September 19, 2021 1:42 PM documented in this encounter [facility] Evaluation + Plan note No data available for this section [facility] Evaluation note Diagnosis Plantar fasciitis of right foot- Primary Plantar fascial fibromatosis Right foot pain Pain in limb [facility]No assessment information availableWCity Hospital Work Phone: Evaluation note* Diagnosis Dermatitis- Primary Contact dermatitis and other eczema, due to unspecified cause [facility] Diagnosis Dermatitis- Primary Contact dermatitis and other eczema, due to unspecified cause [facility] Diagnosis Dermatitis- Primary Contact dermatitis and other eczema, due to unspecified cause [facility] Dermatitis Contact dermatitis and other eczema, due to unspecified cause [facility] Dermatitis- Primary Contact dermatitis and other eczema, due to unspecified cause [facility] Diagnosis Dermatitis- Primary Contact dermatitis and other eczema, due to unspecified cause [facility] Diagnosis Dermatitis- Primary Contact dermatitis and other eczema, due to unspecified cause [facility] Diagnosis Dermatitis- Primary Contact dermatitis and other eczema, due to unspecified cause [facility] Diagnosis Eczema, unspecified type- Primary Tinea versicolor Pityriasis versicolor [facility] Diagnosis Chest pain, unspecified type- Primary [facility] Diagnosis Dermatitis- Primary Contact dermatitis and other eczema, due to unspecified cause [facility] Diagnosis Dermatitis- Primary Contact dermatitis and other eczema, due to unspecified cause [facility] Diagnosis Dermatitis- Primary Contact dermatitis and other eczema, due to unspecified cause [facility] Diagnosis Near syncope- Primary Syncope and collapse Screening for hyperlipidemia Screening for lipoid disorders Mild dilation of ascending aorta (HCC) Thoracic aortic ectasia Fatigue, unspecified type Blurry vision Other specified visual disturbances [facility] Diagnosis Foot pain, right Pain in limb [facility] Diagnosis Dermatitis Contact dermatitis and other eczema, due to unspecified cause [facility] Diagnosis Eczema, unspecified type- Primary Dermatitis Contact dermatitis and other eczema, due to unspecified cause [facility] Diagnosis Dermatitis- Primary Contact dermatitis and other eczema, due to unspecified cause [facility] Diagnosis Sciatica, left side- Primary Acute back pain with sciatica, left Plantar fasciitis of left foot Plantar fascial fibromatosis Health counseling Other specified counseling Myofascial pain Mylagia and myositis, unspecified [facility] Diagnosis Dermatitis- Primary Contact dermatitis and other eczema, due to unspecified cause [facility] Diagnosis Dermatitis- Primary Contact dermatitis and other eczema, due to unspecified cause [facility] Diagnosis Dermatitis- Primary Contact dermatitis and other eczema, due to unspecified cause [facility] Diagnosis Dermatitis- Primary Contact dermatitis and other eczema, due to unspecified cause [facility] Additional Instructions See your dentist at earliest possible time for repeat evaluationWCity Hospital Work Phone: Reason for referral (narrative)* Outpatient Procedure (Routine) - Authorized Specialty Diagnoses / Procedures Referred By Evita t Referred To [facility] [place] Diagnoses Near syncope Blurry vision Procedures US CAROTID ARTERIES [facility] DUPLEX SCAN EXTRACRANIAL ART COMPL BI STUDY PodlogLeida hartmann APRN.CNP [address] [place] [address] [facility] [address] [place] [address] Referral ID Status Reason Start Date Expiration Date Visits Requested Visits Authorized [id number] Authorized Auto-Generat ed Referral 05/06/2024 05/06/2025 1 1 * Outpatient Procedure (Routine) - Additional Clinical Info Needed Specialty Diagnoses / Procedures Referred By Anupac t [facility] [facility] Diagnoses Mild dilation of ascending aorta (HCC) Procedures ECHO ECHO TTHRC R-T 2D W/WOM-MODE COMPL SPEC&COLR D SamilogLeida hartmann APRN.IMPACT HAMMER OPERATOR [address] [place] [address] [facility] [place] [address] Referral ID Status Reason Start Date Expiration Date Visits Requested Visits Authorized [id number] Additional Clinical Info Needed Auto-Generat ed Referral 05/06/2024 05/06/2025 1 1 * Outpatient Procedure (Routine) - New Request Specialty Diagnoses / Procedures Referred By Contac t Referred To [facility] Diagnoses Near syncope Blurry vision Procedures ECG COMPLETE ECG ROUTINE ECG W/LEAST 12 LDS W/I&R Leida Whelan APRN.IMPACT HAMMER OPERATOR [address] [place] [address] [facility] [address] [place] [address] Referral ID Status Reason Start Date Expiration Date Visits Requested Visits Authorized [id number] New Request Auto-Generat ed Referral 05/06/2024 05/06/2025 1 1 [facility] for referral (narrative)* Diagnostic Procedure Only (Urgent) - Closed Specialty Diagnoses / Procedures Referred By Contac t Referred To Contact XR IMAGING Diagnoses Foot pain, right Procedures XR TIBIA FIBULA 2V AP/LAT RIGHT X-RAY LOWER LEG Iona Basurto APRN.IMPACT HAMMER OPERATOR [address] [place] [address] [place] [address] Referral ID Status Reason Start Date Expiration Date V isits Requested Visits Authorized [id number] Closed Auto-Generate d Referral 09/19/2021 10/19/2022 1 1 * Diagnostic Procedure Only (Urgent) - Closed Specialty Diagnoses / Procedures Referred By Contac t Referred To Contact XR IMAGING Diagnoses Foot pain, right Procedures XR FOOT GENERAL 3V AP/LAT/OBL RIGHT X-RAY FOOT MINIMUM 3 VIEWS Iona Basurto APRN.IMPACT HAMMER OPERATOR [address] [place] [address] [place] [address] Referral ID Status Reason Start Date Expiration Date V isits Requested Visits Authorized [id number] Closed Auto-Generate d Referral 09/19/2021 10/19/2022 1 1 [facility] for visit Narrative* Diagnostic Procedure Only (Urgent) - Closed Specialty Diagnoses / Procedures Referred By Contac t Referred To Contact XR IMAGING Diagnoses Foot pain, right Procedures XR TIBIA FIBULA 2V AP/LAT RIGHT X-RAY LOWER LEG Iona Basurto, KEVIN.IMPACT HAMMER OPERATOR [address] [place] [address] [place] [address] Referral ID Status Reason Start Date Expiration Date V isits Requested Visits Authorized [id number] Closed Auto-Generate d Referral 09/19/2021 10/19/2022 1 1 [facility] Summary Purpose Family History No Family History Records Found Relationship Condition Age at Onset Recorded Date/T eric mother Malignant neoplasm of colon Unknown Advance Directives No Advanced Directives Records FoundDocuments on File Type Date Recorded 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 Advance Directive(s) 02/22/2021 8:08 AM Advance Directive(s) 04/01/2016 10:10 AM Advance Directive Response Recorded Date/ Time Living Will No January 17, 2022 6:11pm Power of Recruitment Manager No January 17 6:11pm Medications Administered Section Inactive Administered Medications - up to 3 most recent administrations Medication Order MAR Action Action Date Dose Rate Site bupivacaine (PF) 0.5 % (5 mg/mL) 2.5 mg injection 2.5 mg (0.5 mL), INTRA-ARTICULAR, ONCE, 1 dose, On Sat01/16/22 at 1300 Given 01/04/2022 12:35 PM EDT 2.5 mg Foot , Right dexAMETHasone sodium phosphate 2 mg injection (DECADRON) 2 mg, INTRA-ARTICULAR, ONCE, 1 dose, On Sat01/16/22 at 1300 Given 01/04/2022 12:36 PM EDT 2 mg F oot, Right triamcinolone acetonide 5 mg injection (KENALOG 10) 5 mg, INTRA-ARTICULAR, ONCE, 1 dose, On Sat01/16/22 at 1300 Given 01/16/2022 12:37 PM EDT 5 mg F oot, Right Chief Complaint and Reason for Visit Chief Complaint DENTAL PAIN, SORE TH ROAT Additional Source Comments (unrecognized sect ion and content) No Status Records FoundNo Status Records FoundNo Status Records FoundNo Status Records FoundNo Status Records FoundNo Status Records Found INFORMATION SOURCE (unrecogn ized section and content) DATE CREATED AUTHOR 04/16/2018 [facility] DATE CREATED AUTHOR AUTHOR'S ORGANIZ ATION 02/23/2022 [facility] DATE CREATED AUTHOR AUTHOR'S ORGANIZ ATION 01/23/2024 [facility] ([place]) DATE CREATED AUTHOR AUTHOR'S ORGANIZ ATION 11/08/2024 [facility] DATE CREATED AUTHOR AUTHOR'S ORGANIZ ATION 03/24/2025 [facility] DATE CREATED AUTHOR AUTHOR'S ORGANIZ ATION 06/24/2025 [facility] Source Comments (unrecognize d section and content) In the event this informatio n is protected by the Federal Confidentiality of Alcohol and Drug Abuse Patient Records regulations: The Federal rules restrict any use of the information to criminally investigate or prosecute any alcohol or drug abuse patient.[facility] the event this information is protected by the Federal Confidentiality of Alcohol and Drug Abuse Patient Records regulations: The Federal rules restrict any use of the information to criminally investigate or prosecute any alcohol or drug abuse patient.[facility] the event this information is protected by the Federal Confidentiality of Alcohol and Drug Abuse Patient Records regulations: The Federal rules restrict any use of the information to criminally investigate or prosecute any alcohol or drug abuse patient.[facility] the event this information is protected by the Federal Confidentiality of Alcohol and Drug Abuse Patient Records regulations: The Federal rules restrict any use of the information to criminally investigate or prosecute any alcohol or drug abuse patient.[facility] the event this information is protected by the Federal Confidentiality of Alcohol and Drug Abuse Patient Records regulations: The Federal rules restrict any use of the information to criminally investigate or prosecute any alcohol or drug abuse patient.[facility] the event this information is protected by the Federal Confidentiality of Alcohol and Drug Abuse Patient Records regulations: The Federal rules restrict any use of the information to criminally investigate or prosecute any alcohol or drug abuse patient.[facility] the event this information is protected by the Federal Confidentiality of Alcohol and Drug Abuse Patient Records regulations: The Federal rules restrict any use of the information to criminally investigate or prosecute any alcohol or drug abuse patient.[facility] the event this information is protected by the Federal Confidentiality of Alcohol and Drug Abuse Patient Records regulations: The Federal rules restrict any use of the information to criminally investigate or prosecute any alcohol or drug abuse patient.[facility] the event this information is protected by the Federal Confidentiality of Alcohol and Drug Abuse Patient Records regulations: The Federal rules restrict any use of the information to criminally investigate or prosecute any alcohol or drug abuse patient.[facility] the event this information is protected by the Federal Confidentiality of Alcohol and Drug Abuse Patient Records regulations: The Federal rules restrict any use of the information to criminally investigate or prosecute any alcohol or drug abuse patient.[facility] the event this information is protected by the Federal Confidentiality of Alcohol and Drug Abuse Patient Records regulations: The Federal rules restrict any use of the information to criminally investigate or prosecute any alcohol or drug abuse patient.[facility] the event this information is protected by the Federal Confidentiality of Alcohol and Drug Abuse Patient Records regulations: The Federal rules restrict any use of the information to criminally investigate or prosecute any alcohol or drug abuse patient.[facility] the event this information is protected by the Federal Confidentiality of Alcohol and Drug Abuse Patient Records regulations: The Federal rules restrict any use of the information to criminally investigate or prosecute any alcohol or drug abuse patient.[facility] the event this information is protected by the Federal Confidentiality of Alcohol and Drug Abuse Patient Records regulations: The Federal rules restrict any use of the information to criminally investigate or prosecute any alcohol or drug abuse patient.[facility] the event this information is protected by the Federal Confidentiality of Alcohol and Drug Abuse Patient Records regulations: The Federal rules restrict any use of the information to criminally investigate or prosecute any alcohol or drug abuse patient.[facility] the event this information is protected by the Federal Confidentiality of Alcohol and Drug Abuse Patient Records regulations: The Federal rules restrict any use of the information to criminally investigate or prosecute any alcohol or drug abuse patient.[facility] the event this information is protected by the Federal Confidentiality of Alcohol and Drug Abuse Patient Records regulations: The Federal rules restrict any use of the information to criminally investigate or prosecute any alcohol or drug abuse patient.[facility] HospitalIn the event this information is protected by the Federal Confidentiality of Alcohol and Drug Abuse Patient Records regulations: The Federal rules restrict any use of the information to criminally investigate or prosecute any alcohol or drug abuse patient.[facility] HospitalIn the event this information is protected by the Federal Confidentiality of Alcohol and Drug Abuse Patient Records regulations: The Federal rules restrict any use of the information to criminally investigate or prosecute any alcohol or drug abuse patient.[facility] the event this information is protected by the Federal Confidentiality of Alcohol and Drug Abuse Patient Records regulations: The Federal rules restrict any use of the information to criminally investigate or prosecute any alcohol or drug abuse patient.[facility] the event this information is protected by the Federal Confidentiality of Alcohol and Drug Abuse Patient Records regulations: The Federal rules restrict any use of the information to criminally investigate or prosecute any alcohol or drug abuse patient.[facility] HospitalIn the event this information is protected by the Federal Confidentiality of Alcohol and Drug Abuse Patient Records regulations: The Federal rules restrict any use of the information to criminally investigate or prosecute any alcohol or drug abuse patient.[facility] the event this information is protected by the Federal Confidentiality of Alcohol and Drug Abuse Patient Records regulations: The Federal rules restrict any use of the information to criminally investigate or prosecute any alcohol or drug abuse patient.[facility] Hospital[facility] the event this information is protected by the Federal Confidentiality of Alcohol and Drug Abuse Patient Records regulations: The Federal rules restrict any use of the information to criminally investigate or prosecute any alcohol or drug abuse patient.[facility] HospitalIn the event this information is protected by the Federal Confidentiality of Alcohol and Drug Abuse Patient Records regulations: The Federal rules restrict any use of the information to criminally investigate or prosecute any alcohol or drug abuse patient.[facility]In the event this information is protected by the Federal Confidentiality of Alcohol and Drug Abuse Patient Records regulations: The Federal rules restrict any use of the information to criminally investigate or prosecute any alcohol or drug abuse patient.[facility]In the event this information is protected by the Federal Confidentiality of Alcohol and Drug Abuse Patient Records regulations: The Federal rules restrict any use of the information to criminally investigate or prosecute any alcohol or drug abuse patient.[facility] HospitalIn the event this information is protected by the Federal Confidentiality of Alcohol and Drug Abuse Patient Records regulations: The Federal rules restrict any use of the information to criminally investigate or prosecute any alcohol or drug abuse patient.[facility] HospitalIn the event this information is protected by the Federal Confidentiality of Alcohol and Drug Abuse Patient Records regulations: The Federal rules restrict any use of the information to criminally investigate or prosecute any alcohol or drug abuse patient.[facility] HospitalIn the event this information is protected by the Federal Confidentiality of Alcohol and Drug Abuse Patient Records regulations: The Federal rules restrict any use of the information to criminally investigate or prosecute any alcohol or drug abuse patient.[facility] HospitalIn the event this information is protected by the Federal Confidentiality of Alcohol and Drug Abuse Patient Records regulations: The Federal rules restrict any use of the information to criminally investigate or prosecute any alcohol or drug abuse patient.[facility] HospitalIn the event this information is protected by the Federal Confidentiality of Alcohol and Drug Abuse Patient Records regulations: The Federal rules restrict any use of the information to criminally investigate or prosecute any alcohol or drug abuse patient.[facility] HospitalIn the event this information is protected by the Federal Confidentiality of Alcohol and Drug Abuse Patient Records regulations: The Federal rules restrict any use of the information to criminally investigate or prosecute any alcohol or drug abuse patient.[facility] HospitalIn the event this information is protected by the Federal Confidentiality of Alcohol and Drug Abuse Patient Records regulations: The Federal rules restrict any use of the information to criminally investigate or prosecute any alcohol or drug abuse patient.[facility] HospitalIn the event this information is protected by the Federal Confidentiality of Alcohol and Drug Abuse Patient Records regulations: The Federal rules restrict any use of the information to criminally investigate or prosecute any alcohol or drug abuse patient.[facility] HospitalIn the event this information is protected by the Federal Confidentiality of Alcohol and Drug Abuse Patient Records regulations: The Federal rules restrict any use of the information to criminally investigate or prosecute any alcohol or drug abuse patient.[facility] HospitalIn the event this information is protected by the Federal Confidentiality of Alcohol and Drug Abuse Patient Records regulations: The Federal rules restrict any use of the information to criminally investigate or prosecute any alcohol or drug abuse patient.[facility] HospitalIn the event this information is protected by the Federal Confidentiality of Alcohol and Drug Abuse Patient Records regulations: The Federal rules restrict any use of the information to criminally investigate or prosecute any alcohol or drug abuse patient.[facility] HospitalIn the event this information is protected by the Federal Confidentiality of Alcohol and Drug Abuse Patient Records regulations: The Federal rules restrict any use of the information to criminally investigate or prosecute any alcohol or drug abuse patient.[facility] HospitalIn the event this information is protected by the Federal Confidentiality of Alcohol and Drug Abuse Patient Records regulations: The Federal rules restrict any use of the information to criminally investigate or prosecute any alcohol or drug abuse patient.[facility] HospitalIn the event this information is protected by the Federal Confidentiality of Alcohol and Drug Abuse Patient Records regulations: The Federal rules restrict any use of the information to criminally investigate or prosecute any alcohol or drug abuse patient.[facility] HospitalIn the event this information is protected by the Federal Confidentiality of Alcohol and Drug Abuse Patient Records regulations: The Federal rules restrict any use of the information to criminally investigate or prosecute any alcohol or drug abuse patient.[facility] HospitalIn the event this information is protected by the Federal Confidentiality of Alcohol and Drug Abuse Patient Records regulations: The Federal rules restrict any use of the information to criminally investigate or prosecute any alcohol or drug abuse patient.[facility] HospitalIn the event this information is protected by the Federal Confidentiality of Alcohol and Drug Abuse Patient Records regulations: The Federal rules restrict any use of the information to criminally investigate or prosecute any alcohol or drug abuse patient.[facility] HospitalIn the event this information is protected by the Federal Confidentiality of Alcohol and Drug Abuse Patient Records regulations: The Federal rules restrict any use of the information to criminally investigate or prosecute any alcohol or drug abuse patient.[facility] HospitalIn the event this information is protected by the Federal Confidentiality of Alcohol and Drug Abuse Patient Records regulations: The Federal rules restrict any use of the information to criminally investigate or prosecute any alcohol or drug abuse patient.[facility] Reason for Visit (unrecogniz ed section and content) Reason Onset Date Comments SPP Inflammatory Conditions - Medication Refill 01/09/2022 [facility] Reason Comments Established Patient Pain Reason Onset Date Comments SPP Inflammatory Conditions - Medication Refill 02/09/2022 [facility] Reason Onset Date Comments SPP Inflammatory Conditions - Medication Refill 03/13/2022 [facility] Reason Onset Date Comments SPP Inflammatory Conditions - Medication Refill 05/03/2022 [facility] Reason Onset Date Comments SPP Inflammatory Conditions - Medication Refill 05/25/2022 [facility] Reason Onset Date Comments SPP Inflammatory Conditions - Medication Refill 06/19/2022 [facility] Reason Onset Date Comments SPP Inflammatory Conditions - Medication Refill 07/19/2022 [facility] Reason Onset Date Comments Refill Request 07/31/2022 Reason Comments Refill Request Reason Onset Date Comments SPP Inflammatory Conditions - Medication Refill 08/24/2022 [facility] Reason Onset Date Comments SPP Inflammatory Conditions - Medication Refill 09/24/2022 [facility] Reason Onset Date Comments Opened In Error 11/12/2022 Reason Onset Date Comments SPP Inflammatory Conditions - Medication Refill 12/24/2022 [facility] Reason Onset Date Comments SPP Inflammatory Conditions - Medication Refill 01/23/2023 [facility] Reason Onset Date Comments SPP Inflammatory Conditions - Medication Refill 02/22/2023 [facility] Reason Onset Date Comments SPP Inflammatory Conditions - Medication Refill 03/25/2023 [facility] Reason Onset Date Comments SPP Inflammatory Conditions - Medication Refill 04/29/2023 [facility] Reason Onset Date Comments SPP Inflammatory Conditions - Medication Refill 05/31/2023 [facility] Reason Comments Psoriasis Reason Onset Date Comments SPP Inflammatory Conditions - Medication Refill 08/29/2023 [facility] - going from pens t o syringe Reason Comments Cough Chest congestion, R lung pain x1 week Reason Onset Date Comments SPP Inflammatory Conditions - Medication Refill 01/13/2024 [facility] Reason Onset Date Comments SPP Inflammatory Conditions - Medication Refill 02/07/2024 [facility] Reason Onset Date Comments SPP Inflammatory Conditions - Medication Refill 03/10/2024 [facility] Reason Onset Date Comments SPP Inflammatory Conditions - Medication Refill 04/06/2024 [facility] Reason Comments Blurry Vision Both Eyes Feelings of abo ut to pass out, headaches. Reason Onset Date Comments SPP Inflammatory Conditions - Medication Refill 05/12/2024 [facility] Reason Onset Date Comments SPP Inflammatory Conditions - Medication Refill 06/02/2024 [facility] Reason Onset Date Comments SPP Inflammatory Conditions - Medication Refill 07/10/2024 [facility] Reason Onset Date Comments SPP Inflammatory Conditions - Medication Refill 08/05/2024 [facility] Reason Onset Date Comments Refill Request 09/10/2024 Reason Onset Date Comments SPP Inflammatory Conditions - Medication Refill 09/10/2024 [facility] Reason Comments Dermatitis Reason Onset Date Comments SPP Inflammatory Conditions - Follow-up 12/24/19 25 [facility] Insurance Authorization 12/23/2024 Prior Au th Submitted Reason Onset Date Comments SPP Inflammatory Conditions - Medication Refill 12/24/2024 [facility] Reason Comments Low Back Pain LBP that radiates do wn into left buttock and wraps around into left frontal thigh x 5-6 weeks. Pt recalls last incident of low back pain was 10 years ago. Reason Onset Date Comments SPP Inflammatory Conditions - Medication Refill 01/22/2025 [facility] Reason Onset Date Comments SPP Inflammatory Conditions - Medication Refill 02/22/2025 [facility] Reason Onset Date Comments SPP Inflammatory Conditions - Medication Refill 03/23/2025 [facility] Reason Onset Date Comments SPP Inflammatory Conditions - Follow-up 04/27/20 [facility] Insurance Authorization 04/27/2025 [place] submi [place]ted new insurance Reason Onset Date Comments SPP Inflammatory Conditions - Medication Refill 04/28/2025 [facility] Goals (unrecognized section and content) Goals may be documented in a n alternate section No data available for this section No data available for this section Patient Care team informatio n (unrecognized section and content) Special Projects Coordinator Relationship Specialty Start Date End Date Pcp, No, [place] [employer] PCP - General 02/22/21 09/19/21 FOR RECORDS PERTAINING TO PATIENTS WHO ARE OR HAVE BEEN ENROLLED IN A CHEMICAL DEPENDENCY/SUBSTANCEABUSE PROGRAM, SOME INFORMATION MAY BE OMITTED. This clinical summary was aggregated from multiple sources. Caution should be exercised in using it in the provision of clinical care. This summary normalizes information from multiple sources, and as a consequence, information in this document may materially change the coding, format and clinical context of patient data. In addition, data may be omitted in some cases. CLINICAL DECISIONS SHOULD BE BASED ON THE PRIMARY CLINICAL RECORDS. [facility], [facility]. provides no warranty or guarantee of the accuracy or completeness of information in this document.
--- NOTE | 2025-06-26 10:25 | CM.ED ---
Social Work Date of referral: 06/26/25 Reason for referral: No primary care physician (PCP) on file Referred by: Social Work Identification Patient provided consent to social work visit. [employer] Consultant provided patient with a written handout for the [facility] which patient accepted and expressed appreciation for. Altagracia Allen, CHAIN SPLITTER, PLATEMAKER
== END 2025-06-26 11:25 | disposition home or self-care (01) ==
PROVIDERS: Emergency Provider Student in an Organized Health Care Education/Training Program; Visit Provider Student in an Organized Health Care Education/Training Program
DX: S81.811A Laceration without foreign body, right lower leg, initial encounter (principal); W26.8XXA Contact with other sharp object(s), not elsewhere classified, initial encounter; M25.512 Pain in left shoulder; M54.2 Cervicalgia; W19.XXXA Unspecified fall, initial encounter; M89.8X8 Other specified disorders of bone, other site; F17.210 Nicotine dependence, cigarettes, uncomplicated; Z88.0 Allergy status to penicillin
CPT/HCPCS: 12004; 70450; 72125; 73030; 73590; 90715; 96372; 96374; 99282; A4216